=== PATIENT | female | born 1960 | race African-American/Black ===

== ENCOUNTER 2016-06-05 16:08 | Emergency (ER) | payer OTHER ==
[~2016-06-05] VITALS: Ht 165.1 cm; Wt 81.6 kg
[~2016-06-05 16:08] MED LIST: ACETAMINOPHEN120 MG GT; ASPIRIN81 MG GT; ATORVASTATIN CA20 MG GT; CARDIZEM30 M1 GT; CATAPRES0.1 MG GT; COLACE100 MG GT; MILK OF MA400 MG/51 GT; MULTI-DELYN237 ML GT; PREDNISONE20 MG GT; PROAIR HFA8.5 GM INH; PROMOD946 ML GT; TRAMADOL HCL50 MG GT; UTI-STAT L3875 MG/31 GT; VITAMIN C500 M1 GT; ZINC SULFATE220 M1 GT
[2016-06-05 16:49] VITALS: BP 143/76
[2016-06-05 18:03] VITALS: BP 134/90
--- NOTE | 2016-06-05 21:55 | Emergency Room Report ---
History of Present Illness General Chief Complaint: General Complaint Source: Patient Present Illness HPI 56 YOF sent from SNF for evaluation of "bump" on back right side of head. Atraumatic. Patient aphasic - on trach/vent, not speaking at baseline. Paperwork from [facility] does not specify any additional information. There are no family members present to provide additional information. Allergies: Coded Allergies: SULFA (SULFONAMIDE ANTIBIOTICS) (Verified Allergy, Intermediate, 02/07/16) Patient History Past Medical History: see triage record, old chart reviewed Past Surgical History: unable to obtain Pertinent Family History: unable to obtain Social History: Denies: alcohol use, drug use, smoking Now: No Immunizations: UTD Reviewed Nursing Documentation: PMH: Agreed, PSxH: Agreed Nursing Documentation-PMH Hx Cardiac Problems: Yes - HYPERLIPIDEMIA Hx Hypertension: Yes Hx COPD: Yes Hx Cancer: No Hx Gastrointestinal Problems: Yes - GERD Hx Neurological Problems: No Review of Systems All Other Systems: limited - Patient aphasic Physical Exam Vital Signs Date Time Temp Pulse Resp B/P Pulse Ox O2 Delivery O2 Flow Rate FiO2 06/05/16 16:08 98.8 97 22 104/68 99 Mechanical Ventilator 6.0 06/05/16 16:18 40 Sp02 EP Interpretation: reviewed, normal General Appearance: normal inspection, well appearing, no apparent distress, alert, GCS 15, non-toxic, obese Head: normocephalic, atraumatic Eyes: bilateral eye EOMI, bilateral eye PERRL ENT: normal ENT inspection, normal pharynx, no angioedema Neck: normal inspection, full range of motion, supple, no bony tend, other - Trach in place, no air leak. Respiratory: normal inspection, lungs clear, normal breath sounds, no respiratory distress, no retraction, no wheezing Cardiovascular #1: regular rate, rhythm, no edema Gastrointestinal: normal inspection, normal bowel sounds, non tender, soft, no guarding, no hernia Genitourinary: no CVA tenderness Musculoskeletal: normal inspection, back normal, normal range of motion, Ricardo' s Sign negative Neurologic: normal inspection, alert, responsive, rectifier operator III-XII nml as tested, speech normal Psychiatric: normal inspection, judgement/insight normal, mood/affect normal Skin: normal inspection, normal color, no rash Medical Decision Making Diagnostic Impression: Primary Impression: Hematoma ER Course CT with right parietal cephalohematoma Not clinically an abscess No surrounding cellulitis or other signs of infection No sign of trauma on CT DC back to SNF Dr Lynch informed Last Vital Signs Date Time Temp Pulse Resp B/P Pulse Ox O2 Delivery O2 Flow Rate FiO2 06/05/16 20:40 74 15 40 06/05/16 18:03 134/90 100 Mechanical Ventilator 06/05/16 16:08 98.8 6.0 Status: improved Disposition: XFER SNF Condition: Improved Patient Instructions: Hematoma, [id number] Additional Instructions: - Right sided parietal hematoma DELLA MEJÍA M.D. Jun 05, 2016 21:55
[2016-06-05 22:48] VITALS: BP 121/89
--- NOTE | 2016-06-27 10:36 | Diagnostic Imaging Report ---
Indications: Head trauma Technique: Spiral acquisitions obtained through the brain. Angled axial and coronal 5 x 5 mm slices were reconstructed. Total dose length product 1431 mGycm. CTDI vol(s) 70 mGy Comparison: None Findings: There is a large right high parietal scalp contusion. No underlying calvarial fracture. There is age-related enlargement of ventricles and extra-axial CSF spaces. There is periventricular deep white matter chronic ischemic change. There are old bilateral basal ganglia lacunar infarcts. There is ethmoid and sphenoid sinus disease. The mastoids are clear. The orbits are unremarkable. Impression: Chronic and age-related changes, as described, including old bilateral basal ganglia lacunar infarcts Negative for acute intracranial bleed or mass effect Right parietal scalp hematoma Sinus disease This agrees with the preliminary interpretation provided overnight by Dr. Verduzco The CT scanner at [facility] is accredited by the [employer] and the scans are performed using protocols designed to limit radiation exposure to as low as reasonably achievable to attain images of sufficient resolution adequate for diagnostic evaluation.
== END 2016-06-05 22:50 ==
LOC: EDBD 16:08 → EMR 16:50
DX: M79.81 Nontraumatic hematoma of soft tissue (principal); R47.01 Aphasia; Z93.0 Tracheostomy status; Z99.11 Dependence on respirator [ventilator] status; I10 Essential (primary) hypertension; J44.9 Chronic obstructive pulmonary disease, unspecified; E78.5 Hyperlipidemia, unspecified; K21.9 Gastro-esophageal reflux disease without esophagitis; Z88.2 Allergy status to sulfonamides
CPT/HCPCS: 70450; 94002; 94664; 99284

== ENCOUNTER 2016-07-13 10:08 | Inpatient (IN) | payer MEDICAID, OTHER ==
[2016-07-13] VITALS (35 sets, daily range): BP systolic 75–131; BP diastolic 46–86
[~2016-07-13] VITALS: Ht 167.6 cm; Wt 88.0 kg
[2016-07-13] MEDS ORDERED: ATORVASTATIN CA20 MG GT (10:26)
--- NOTE | 2016-07-13 10:26 | Emergency Room Report ---
History of Present Illness General Chief Complaint: Dyspnea/Respdistress Source: EMS Present Illness HPI Patient presents from nursing facility with complaints of hypoxia Was also report of tachycardia Upon arrival the patient is tracheostomy vent dependent patient is tachycardic and hypotensive Patient herself is nonverbal cannot provide any history This does limit the history of present illness significantly Unknown regarding fevers at the facility Unknown regarding diarrhea or vomiting Patient has feeding tube in place Allergies: Coded Allergies: SULFA (SULFONAMIDE ANTIBIOTICS) (Verified Allergy, Intermediate, 02/07/16) Patient History Limited by: medical condition Past Medical History: see triage record Pertinent Family History: unable to obtain Now: No Reviewed Nursing Documentation: PMH: Agreed, PSxH: Agreed Nursing Documentation-PMH Past Medical History: No History, Except For Hx Cardiac Problems: Yes - AR, RESP FAILURE, HYPERLIPIDEMIA Hx Hypertension: Yes Hx Cancer: No Hx Gastrointestinal Problems: Yes - GERD History Of Psychiatric Problem: Yes - ANXIETY DISORDER Hx Neurological Problems: No Review of Systems All Other Systems: limited - Other than the ones mentioned in the history of present illness all others are reviewed however they do stay limited due to the patient's mental status Physical Exam Vital Signs Date Time Temp Pulse Resp B/P Pulse Ox O2 Delivery O2 Flow Rate FiO2 07/13/16 10:04 140 45 107/66 91 Ambu-Bag 07/13/16 10:21 100 Sp02 EP Interpretation: reviewed, abnormal - Ported at 91% which is a low oxygenation, on the ventilator her on 100% oxygen patient saturating 100% pulse ox which is a normal percentage, General Appearance: mild distress - grimacing Head: normocephalic, atraumatic Eyes: bilateral eye PERRL ENT: normal pharynx, no angioedema Neck: other - Tracheostomy in place no crepitus Respiratory: crackles - diffusely Cardiovascular #1: tachycardia, edema Gastrointestinal: other - Somewhat of a distended abdomen, feeding tube in place Rectal: other - Large decubitus ulcer Musculoskeletal: other - Patient contracted in the extremities appears to be chronically debilitated, Neurologic: other - Responds to physical stimuli otherwise nonverbal not following commands Skin: other - multiple skin breakdowns Lymphatic: no adenopathy Procedures Critical Care Time Critical Care Time 50 minutes for multiple evaluations initial critical presentation including hypotension and tachycardia Findings of severe sepsis Multiple consultants not including any procedural time Medical Decision Making Diagnostic Impression: Primary Impression: Severe sepsis ER Course Patient presents in critical condition Hypotensive and tachycardic concern is high regarding severe sepsis Patient initiated on septic protocol with saline bolus and broad-spectrum antibiotic Imaging study reveals right lower lobe atelectasis possible consolidation Blood work is also significantly abnormal with elevated white blood for count high lactic acid also kidney disease with high potassium and significant electrolyte abnormalities Patient requires PICC line placement this is performed by radiology Patient has done better with appropriate decrease of heart rate with increased pressure Patient was given Kayexalate for the high potassium also be IV hydration will help with this given the kidney evaluations Patient requires icu admission in critical condition Labs Test 07/13/16 10:30 07/13/16 11:13 White Blood Count 20.2 K/UL (4.8-10.8) Red Blood Count 3.71 M/UL (4.20-5.40) Hemoglobin 9.5 G/DL (12.0-16.0) Hematocrit 30.6 % (37.0-47.0) Mean Corpuscular Volume 83 FL (80-99) Mean Corpuscular Hemoglobin 25.5 PG (27.0-31.0) Mean Corpuscular Hemoglobin Concent 30.9 G/DL (32.0-36.0) Red Cell Distribution Width 16.7 % (11.6-14.8) Platelet Count 498 K/UL (150-450) Mean Platelet Volume 6.2 FL (6.5-10.1) Neutrophils (%) (Auto) % (45.0-75.0) Lymphocytes (%) (Auto) % (20.0-45.0) Monocytes (%) (Auto) % (1.0-10.0) Eosinophils (%) (Auto) % (0.0-3.0) Basophils (%) (Auto) % (0.0-2.0) Differential Total Cells Counted 100 Neutrophils % (Manual) 81 % (45-75) Lymphocytes % (Manual) 1 % (20-45) Monocytes % (Manual) 1 % (1-10) Eosinophils % (Manual) 0 % (0-3) Basophils % (Manual) 0 % (0-2) Band Neutrophils 17 % (0-8) Platelet Estimate Adequate Platelet Morphology Normal Hypochromasia 2+ Anisocytosis 1+ Sodium Level 123 mEQ/L (135-145) Potassium Level 6.1 mEQ/L (3.4-4.9) Chloride Level 83 mEQ/L (98-107) Carbon Dioxide Level 19 mEQ/L (20-30) Anion Gap 21 (5-15) Blood Urea Nitrogen 34 mg/dL (7-23) Creatinine 0.4 mg/dL (0.5-0.9) Estimat Glomerular Filtration Rate > 60 mL/min (>60) Glucose Level 204 mg/dL (74-106) Lactic Acid Level 4.00 mmol/L (0.66-2.22) Calcium Level 8.3 mg/dL (8.6-10.2) Total Bilirubin 0.6 mg/dL (0.0-1.2) Aspartate Amino Transf (AST/SGOT) 45 U/L (5-40) Alanine Aminotransferase (ALT/SGPT) 57 U/L (3-33) Alkaline Phosphatase 196 U/L (35-104) Total Creatine Kinase 18 U/L (26-140) Creatine Kinase MB < 1.5 ng/mL (< 3.8) Creatine Kinase MB Relative Index Troponin I < 0.30 ng/mL (<=0.30) Pro-B-Type Natriuretic Peptide 1139 pg/mL (0-125) Total Protein 5.7 g/dL (6.6-8.7) Albumin 2.4 g/dL (3.5-5.2) Globulin 3.3 g/dL Albumin/Globulin Ratio 0.7 (1.0-2.7) Lipase 33 U/L (< 60) Urine Color Yellow Urine Appearance Clear Urine pH 6 (4.5-8.0) Urine Specific [place] 1.010 (1.005-1.035) Urine Protein 2+ (NEGATIVE) Urine Glucose (UA) Negative (NEGATIVE) Urine Ketones Negative (NEGATIVE) Urine Occult Blood 2+ (NEGATIVE) Urine Nitrite Negative (NEGATIVE) Urine Bilirubin Negative (NEGATIVE) Urine Urobilinogen Normal MG/DL (0.0-1.0) Urine Leukocyte Esterase 2+ (NEGATIVE) Urine RBC 5-10 /HPF (0 - 2) Urine WBC 5-10 /HPF (0 - 2) Urine Squamous Epithelial Cells Few /LPF (NONE/OCC) Urine Bacteria Few /HPF (NONE) EKG Diagnostic Results Rate: tachycardiac Rhythm: other ST Segments: other - Nonspecific ST and T-wave changes, straining pattern with tachycardia Rhythm Strip Diag. Results EP Interpretation: yes Rate: 119 Rhythm: no PVC's, no ectopy, other - Sinus tach Chest X-Ray Diagnostic Results EP Interpretation: Yes Findings: no pneumothorax, other - Increased markings right lower lobe, cardiomegaly, consideration for atelectasis/infiltrates Number of Views: 1 Last Vital Signs Date Time Temp Pulse Resp B/P Pulse Ox O2 Delivery O2 Flow Rate FiO2 07/13/16 10:21 155 16 Mechanical Ventilator 100 07/13/16 10:04 107/66 91 Status: improved Disposition: ADMITTED INPATIENT Condition: Critical OMAIRA MITCHELL D.O. Jul 13, 2016 10:26
[2016-07-13] MEDS ORDERED: Lidocaine 1% Plain 30 ml INJ ONE (10:30)
[2016-07-13] MEDS ORDERED: Heparin 2000 units/Ns 1000ml IV ONE (10:30)
[2016-07-13 11:07] LABS: MEAN CORPUSCULAR HEMOGLOBIN 25.5 PG (27.0-31.0); MEAN CORPUSCULAR HGB CONC 30.9 G/DL (32.0-36.0); MEAN CORPUSCULAR VOLUME 83 FL (80-99); MEAN PLATELET VOLUME 6.2 FL (6.5-10.1); PLATELET COUNT 498 K/UL (150-450); RED BLOOD COUNT 3.71 M/UL (4.20-5.40); RED CELL DISTRIBUTION WIDTH 16.7 % (11.6-14.8); WHITE BLOOD COUNT 20.2 K/UL (4.8-10.8)
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
[2016-07-13] MEDS ORDERED: Zosyn 3.375gm inj ONE (11:26)
[2016-07-13] MEDS ORDERED: Piperacillin/Tazobactam 3.375 GM in NS 110 ML IVPB ONE (11:30)
[2016-07-13 11:31] LABS: ANISOCYTOSIS 1+; BAND NEUTROPHILS % (MANUAL) 17 % (0-8); BASOPHILS % (MANUAL) 0 % (0-2); EOSINOPHILS % (MANUAL) 0 % (0-3); HYPOCHROMASIA 2+; LYMPHOCYTES % (MANUAL) 1 % (20-45); NEUTROPHILS % (MANUAL) 81 % (45-75); PLATELET ESTIMATE ADEQUATE; PLATELET MORPHOLOGY NORMAL; TOTAL CELLS COUNTED 100
[2016-07-13] MEDS ORDERED: Levophed 4mg/4mL Inj IV ONE (11:36)
[2016-07-13 11:38] LABS: TROPONIN I < 0.30 ng/mL (<=0.30)
[2016-07-13 11:41] LABS: ALANINE AMINOTRANSFERASE 57 U/L (3-33); ALBUMIN/GLOBULIN RATIO 0.7 (1.0-2.7); ANION GAP 21 (5-15); ASPARTATE AMINO TRANSFERASE 45 U/L (5-40); CALCIUM 8.3 mg/dL (8.6-10.2); CARBON DIOXIDE 19 mEQ/L (20-30); CHLORIDE 83 mEQ/L (98-107); CREATININE 0.4 mg/dL (0.5-0.9); GLOMERULAR FILTRATION RATE > 60 mL/min (>60); HEMOLYSIS 6; LIPASE 33 U/L (< 60); SODIUM 123 mEQ/L (135-145); TOTAL PROTEIN 5.7 g/dL (6.6-8.7)
[2016-07-13 11:42] LABS: POTASSIUM 6.1 mEQ/L (3.4-4.9)
[2016-07-13 11:49] LABS: APPEARANCE,URINE CLEAR; KETONES,URINE NEGATIVE (NEGATIVE); LEUKOCYTE ESTERASE ,URINE 2+ (NEGATIVE); NITRITE,URINE NEGATIVE (NEGATIVE); PH,URINE 6 (4.5-8.0); PROTEIN,URINE 2+ (NEGATIVE); UROBILINOGEN,URINE NORMAL MG/DL (0.0-1.0)
[2016-07-13 11:52] LABS: CKMB < 1.5 ng/mL (< 3.8)
[2016-07-13 12:17] LABS: REFLEX LACTIC ACID YES OR NO YES
[2016-07-13 12:19] LABS: BACTERIA,URINE FEW /HPF; SQUAMOUS EPITHELIAL CELL,UR FEW /LPF (NONE/OCC)
[2016-07-13] MEDS ORDERED: Sodium Polystyrene Sulfonate 15gm Powder ORAL ONE (12:45)
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
[2016-07-13] MEDS ORDERED: Albuterol 90mcg Inhaler 8gm INH SCH (15:00)
[2016-07-13] MEDS ORDERED: traMADol 50mg tab GT PRN (15:30)
[2016-07-13] MEDS ORDERED: Vancomycin 1 GM in NS 275 ML IVPB ONE (16:30)
--- NOTE | 2016-07-13 16:43 | Diagnostic Imaging Report ---
Indications: Needs long-term IV access Technique: Procedure performed at bedside. Ultrasound confirms patent compressible left basilic vein. Total sterile technique, including sterile probe cover and sterile gel, sterile gloves, hand hygiene, hat, mask,, sterile gown, large sterile drape, and preparation with 2% chlorhexidine utilized. Local anesthesia with 1% lidocaine. Under real-time ultrasound guidance, puncture basilic vein using 21-gauge needle, passage 0.018 guidewire, exchange for 5 Austrian peel-away sheath. 5 Austrian Bard dual-lumen power PICC cut to 44 cm. It was inserted through the peel-away sheath. Peel-away sheath and guidewire removed. Catheter fixed to the skin. Both catheter ports aspirated and flushed. Patient tolerated procedure well, without immediate complication. Followup chest x-ray obtained, documents catheter tip position at the the right atrium. Impression: Successful bedside placement of left arm PICC under sonographic guidance, as described above. Note that the catheter tip is deep in the right atrium and will be retracted
[2016-07-13] MEDS: Albuterol ud Inhalation HHN SCH ×2 (18:52→23:00)
[2016-07-13] MEDS ORDERED: Heparin 5000 units/ml inj SUBQ SCH (21:00)
[2016-07-13 21:02] LABS: ANION GAP 17 (5-15); CALCIUM 7.8 mg/dL (8.6-10.2); CARBON DIOXIDE 21 mEQ/L (20-30); CHLORIDE 91 mEQ/L (98-107); CREATININE 0.3 mg/dL (0.5-0.9); GLOMERULAR FILTRATION RATE > 60 mL/min (>60); HEMOLYSIS 0; POTASSIUM 3.7 mEQ/L (3.4-4.9); SODIUM 129 mEQ/L (135-145)
[2016-07-13 21:11] LABS: ABG ALLEN TEST POSITIVE; ABG PCO2 29.5 mmHg (35.0-45.0)
[2016-07-13] MEDS: Piperacillin/Tazobactam 3.375 GM in D5W 110 ML IVPB SCH (21:55)
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
[2016-07-14] VITALS (25 sets, daily range): BP systolic 99–139; BP diastolic 46–86
[2016-07-14] MEDS: Albuterol ud Inhalation HHN SCH ×6 (03:00→23:00)
[2016-07-14] MEDS: Vancomycin 750 MG in NS 275 ML IVPB SCH ×2 (03:33→16:29)
[2016-07-14 05:53] LABS: MEAN CORPUSCULAR HEMOGLOBIN 26.3 PG (27.0-31.0); MEAN CORPUSCULAR HGB CONC 31.8 G/DL (32.0-36.0); MEAN CORPUSCULAR VOLUME 83 FL (80-99); PLATELET COUNT 336 K/UL (150-450); WHITE BLOOD COUNT 20.6 K/UL (4.8-10.8)
[2016-07-14] MEDS: Piperacillin/Tazobactam 3.375 GM in D5W 110 ML IVPB SCH ×3 (06:00→21:12)
[2016-07-14 06:24] LABS: ALANINE AMINOTRANSFERASE 45 U/L (3-33); ALBUMIN/GLOBULIN RATIO 0.5 (1.0-2.7); ANION GAP 19 (5-15); ASPARTATE AMINO TRANSFERASE 33 U/L (5-40); CALCIUM 7.8 mg/dL (8.6-10.2); CARBON DIOXIDE 22 mEQ/L (20-30); CHLORIDE 97 mEQ/L (98-107); CREATININE 0.3 mg/dL (0.5-0.9); GLOMERULAR FILTRATION RATE > 60 mL/min (>60); HEMOLYSIS 1; POTASSIUM 3.1 mEQ/L (3.4-4.9); SODIUM 138 mEQ/L (135-145); TOTAL PROTEIN 5.1 g/dL (6.6-8.7)
[2016-07-14] MEDS ORDERED: KCl 10% 40mEq/30ml liquid NG ONE (08:00)
[2016-07-14] MEDS: Ascorbic Acid 500mg tab GT SCH (08:50)
[2016-07-14] MEDS: Zinc Sulfate 220mg cap GT SCH (08:50)
[2016-07-14] MEDS: Pantoprazole Inj IVP SCH (08:50)
[2016-07-14] MEDS: Aspirin Baby 81mg GT SCH (08:51)
[2016-07-14] MEDS: Milk of Magnesia 30ml Ud GT SCH (08:51)
[2016-07-14] MEDS ORDERED: PredniSONE 20mg tab GT SCH (09:00)
[2016-07-14 09:25] LABS: BAND NEUTROPHILS % (MANUAL) 11 % (0-8); BASOPHILS % (MANUAL) 0 % (0-2); EOSINOPHILS % (MANUAL) 0 % (0-3); LYMPHOCYTES % (MANUAL) 3 % (20-45); NEUTROPHILS % (MANUAL) 85 % (45-75); PLATELET ESTIMATE ADEQUATE; TOTAL CELLS COUNTED 100
[2016-07-14 09:26] LABS: ANISOCYTOSIS 1+; HYPOCHROMASIA 1+; PLATELET MORPHOLOGY NORMAL
--- NOTE | 2016-07-14 11:08 | Diagnostic Imaging Report ---
Indications: PICC repositioning Technique: Portable AP chest at 1634 Findings: Comparison: 1149 PICC has been withdrawn, tip now in the region of the proximal aspect of the right atrium. Pulmonary inflation remains poor. Left retrocardiac consolidation with air bronchograms, hazy opacity in the/over right lung base with indistinctness of costophrenic angle suggesting pleural effusion, bilateral interstitial prominence all unchanged. Tracheostomy tube remains in place. No new abnormality identified. IMPRESSION: Better positioning of PICC following withdrawal, may be used. No other change from 5 hours prior This correlates with Dr. Verduzco's preliminary report.
--- NOTE | 2016-07-14 11:25 | Diagnostic Imaging Report ---
Indications: DYSPNEA Technique: Portable AP chest Findings: Comparison: 07/13/16 Pulmonary bibasal consolidative opacities with adjacent pleural effusions, increased interstitial markings throughout the nonconsolidated portions of both lungs persist, unchanged. Lines and tubes remain in place. No new abnormality identified. IMPRESSION: Stable bilateral congestive changes Underlying atelectasis or pneumonia in either or both lung bases not excludable, unchanged
--- NOTE | 2016-07-14 11:28 | Diagnostic Imaging Report ---
Indications: Right hand trauma, pain Technique: 3 views right hand Findings: Comparison: 02/07/2016 There is been interval fracture through the neck of the first proximal phalanx with some adjacent periosteal callus formation. Only a few small calcific/ossific densities are present in the fracture cleft, in the expected region of the distal fracture fragment, latter not identified. Dislocation of the first interphalangeal joint persists. Multiple metacarpal phalangeal and interphalangeal joint subluxations with periarticular demineralization again noted. IMPRESSION: Nonacute fracture through the first proximal phalangeal neck with some evidence of healing as well as resorption of the distal fracture fragment Persistent joint subluxations and dislocations as described suggesting underlying inflammatory arthritis such as rheumatoid.
--- NOTE | 2016-07-14 11:38 | History and Physical Report ---
DATE OF ADMISSION: 07/13/2016 REASON FOR ADMISSION: Tachycardia and sepsis. HISTORY OF PRESENT ILLNESS: The patient is a 56-year-old unfortunate female with multiple medical problems. The patient is chronically ill and poorly responsive, ventilator dependent, and bedbound. The patient was noted to be tachycardic and hypotensive. The patient was brought in to the emergency room and treated accordingly with IV hydration and IV antibiotics. PAST MEDICAL HISTORY: Notable for respiratory failure, chronic encephalopathy, GERD, tracheostomy, G-tube, history of osteomyelitis, and history of significant arthritis. MEDICATIONS: Reviewed. ALLERGIES: Reviewed. REVIEW OF SYSTEMS: Unable to obtain. PHYSICAL EXAMINATION: GENERAL: The patient is ill appearing female, chronically ill, older than her stated age. Vital Signs: Blood pressure 126/57, respiratory rate 28, pulse 120, and saturation 95%. The patient is currently on the ventilator HEENT: Tracheostomy is in midline. NECK: Supple. LUNGS: Coarse breath sounds. CARDIAC: S1 and S2. Tachycardic. RR ABDOMEN: Soft. G-tube. EXTREMITIES: Significant contractures overall. LABORATORY AND DIAGNOSTIC DATA: Lab data reviewed. X-rays, KUB, noted. Chest x-ray with some fluid and possible infiltrate. White cell count 20, hemoglobin 10.1, and platelets 236,000. Blood gases, pH 7.5, pCO2 29, and pO2 156. Chemistry, BUN 22 and creatinine 0.3. Albumin 1.8. IMPRESSION: 1. Sepsis. 2. Respiratory failure. 3. Tracheostomy. 4. Metabolic acidosis. 5. Severe protein-calorie malnutrition. 6. Evidence of hypoxemia. 7. Leukocytosis. 8. Anemia of unclear etiology. RECOMMENDATIONS: IV antibiotics. ID evaluation. IV hydration. Levophed as needed for blood pressure support. Transfuse two units of blood today. Heart rate control and monitor. would recommend diltiazem although clinically she is hypotensive. We will discontinue subcutaneous heparin for now with low HH and monitor blood count and taper prednisone and update with family. Bartolome Lynch M.D. DR: Nir JOB#: [id number] CC: BUCKY
[2016-07-15] VITALS (24 sets, daily range): BP systolic 102–135; BP diastolic 54–77
--- NOTE | 2016-07-15 00:49 | Consultation ---
DATE OF CONSULTATION: 07/14/2016 CHIEF COMPLAINT: Anemia. HISTORY OF PRESENT ILLNESS: Most of the history is per chart. The patient is a 56-year-old female intubated with a history of chronic respiratory failure, on a vent and PEG, who was transferred to the hospital because of tachycardia and hypotension. She was found to be profoundly anemic, so GI consult was requested for evaluation. PAST MEDICAL HISTORY: 1. Respiratory failure, chronically on vent. 2. Dysphagia with gastrostomy tube. 3. GERD. 4. History of osteomyelitis. 5. Arthritis. ALLERGIES: Sulfa. MEDICATIONS: Please see medication reconciliation list. SOCIAL HISTORY: Currently lives in a long-term. No recent history of tobacco, alcohol, or IV drug abuse. PAST SURGICAL HISTORY: Tracheostomy. FAMILY HISTORY: Noncontributory. REVIEW OF SYSTEMS: Unable to obtain. PHYSICAL EXAMINATION: GENERAL: This is a well-developed female, on a vent . VITAL SIGNS: Most recent vital signs, the patient is afebrile. Blood pressure is 109/46, pulse is 135, and respirations 26. HEENT: Normocephalic. Eyes, pale conjunctivae. NECK: Supple. There is tracheostomy in place. CARDIOVASCULAR: Tachy. Regular rate. Plus S1 and S2. LUNGS: Decreased somewhat and diffusely. ABDOMEN: Soft and nontender. G-tube in place. No rebound. No guarding. EXTREMITIES: No cyanosis. No clubbing. No edema. LABORATORY DATA: White count on admission was 20, hemoglobin 9.5, but today, it dropped to 7.1, and platelet count is 336,000. Sodium 138, potassium 3.1, BUN 22, and creatinine 0.3. ASSESSMENT AND PLAN: A 56-year-old female with respiratory failure and dysphagia, admitted to the hospital with tachycardia and hypotension. The patient has a drop in hemoglobin and hematocrit without any obvious bleeding. Per nurses, there was no melena or hematochezia. Plan to send the stool for occult blood. Start the patient on Protonix. Monitor hemoglobin and hematocrit, transfuse, and gastrointestinal procedures if needed. I want to thank Dr. Bartolome Lynch for this kind referral. Sim Lr M.D. DR: KAILASH JOB#: [id number] CC: Bartolome Lynch M.D.; Fax#: [phone]
[2016-07-15] MEDS: Albuterol ud Inhalation HHN SCH ×6 (02:55→23:00)
[2016-07-15] MEDS: Vancomycin 750 MG in NS 275 ML IVPB SCH ×2 (03:30→15:45)
[2016-07-15 05:30] LABS: MEAN CORPUSCULAR HEMOGLOBIN 27.4 PG (27.0-31.0); MEAN CORPUSCULAR HGB CONC 32.2 G/DL (32.0-36.0); MEAN CORPUSCULAR VOLUME 85 FL (80-99); MEAN PLATELET VOLUME 7.1 FL (6.5-10.1); PLATELET COUNT 311 K/UL (150-450); RED BLOOD COUNT 3.64 M/UL (4.20-5.40); RED CELL DISTRIBUTION WIDTH 15.8 % (11.6-14.8); WHITE BLOOD COUNT 16.1 K/UL (4.8-10.8)
[2016-07-15 05:43] LABS: ANION GAP 15 (5-15); CALCIUM 7.4 mg/dL (8.6-10.2); CARBON DIOXIDE 24 mEQ/L (20-30); CHLORIDE 103 mEQ/L (98-107); CREATININE 0.3 mg/dL (0.5-0.9); GLOMERULAR FILTRATION RATE > 60 mL/min (>60); HEMOLYSIS 4; SODIUM 142 mEQ/L (135-145)
[2016-07-15 05:44] LABS: HEMOLYSIS 2; IRON 12 ug/dL (37-145); TOTAL IRON BINDING CAPACITY 93 ug/dL (250-400)
[2016-07-15 05:50] LABS: POTASSIUM 2.6 mEQ/L (3.4-4.9)
[2016-07-15] MEDS: Piperacillin/Tazobactam 3.375 GM in D5W 110 ML IVPB SCH ×3 (06:20→22:29)
[2016-07-15] MEDS: KCl 10% 40mEq/30ml liquid NG ONE ×2 (06:30→06:58)
[2016-07-15] MEDS ORDERED: Potassium Chloride 60 MEQ in NS 1000ml 1,000 ML IV ONE (09:00)
[2016-07-15 09:43] LABS: BAND NEUTROPHILS % (MANUAL) 12 % (0-8); LYMPHOCYTES % (MANUAL) 3 % (20-45); NEUTROPHILS % (MANUAL) 84 % (45-75); TOTAL CELLS COUNTED 100
[2016-07-15 09:44] LABS: ANISOCYTOSIS 1+; BASOPHILS % (MANUAL) 0 % (0-2); EOSINOPHILS % (MANUAL) 0 % (0-3); HYPOCHROMASIA 1+; PLATELET ESTIMATE ADEQUATE; PLATELET MORPHOLOGY NORMAL
[2016-07-15] MEDS: Milk of Magnesia 30ml Ud GT SCH (10:17)
[2016-07-15] MEDS: Pantoprazole Inj IVP SCH (10:17)
[2016-07-15] MEDS: Zinc Sulfate 220mg cap GT SCH (10:17)
[2016-07-15] MEDS: Ascorbic Acid 500mg tab GT SCH (10:17)
[2016-07-15] MEDS: Aspirin Baby 81mg GT SCH (10:17)
[2016-07-15] MEDS ORDERED: KCl 10% 40mEq/30ml liquid NG ONE ×2 (10:30→14:30)
[2016-07-15] MEDS ORDERED: NS 275ml ONE (13:57)
--- NOTE | 2016-07-15 17:59 | Consultation ---
DATE OF CONSULTATION: 07/15/2016 This consult is for coverage of Dr. Sequeira. CONSULTING PHYSICIAN: Puneet Fermin M.D. REFERRING PHYSICIAN: Bartolome Lynch M.D. PATIENT'S PRIMARY DOCTOR: Bartolome Lynch M.D. REASON FOR CONSULTATION: Sepsis. HISTORY OF PRESENT ILLNESS: This is a 56-year-old -[place] female who is a custodial resident, admitted on 07/13/2016 with tachycardia, hypoxemia, and leukocytosis. Apparently, she is not the source of history. The patient had no significant fever, but at the of admission, the temperature was low at 95.8. PAST MEDICAL HISTORY: Significant for ventilator-dependent renal failure, hypertension, coronary artery disease, encephalopathy, and has pressure ulcers at the time of admission. ALLERGIES: Allergic to sulfa drugs. MEDICATIONS: Potassium chloride, Protonix, vitamin C, aspirin, magnesium hydroxide, zinc, vancomycin, Zosyn, atorvastatin, albuterol, diltiazem, norepinephrine, tramadol, sodium chloride, and vancomycin. REVIEW OF SYSTEMS: Unobtainable from this patient. She was anemic and received blood transfusion. She also has a PICC line that was placed after admission. SOCIAL HISTORY: A custodial resident. Bedbound. PHYSICAL EXAMINATION: VITAL SIGNS: Temperature is 98.2, pulse is 118, and blood pressure 133/56. GENERAL APPEARANCE: In the ICU, nonresponsive. HEAD AND NECK: Status post tracheostomy. [place] conjunctivae. HEART: Tachycardic. LUNGS: The patient is on mechanical ventilator. She has bilateral rhonchi. ABDOMEN: Soft. Status post G-tube. EXTREMITIES: Left arm PICC line. She has edema in arms, more on the right side. SKIN: The patient has multiple pressure ulcers including in the sacrococcyx area stage IV, unstageable; bilateral hip ulcer stage III; and left posterior leg blister that was open. LABORATORY DATA: WBC today 16.1, coming down from 20.2; hemoglobin 10; hematocrit 31; and platelets is 311,000. Sodium 142, potassium 2.6, chloride 103, bicarbonate 24, BUN 17, creatinine 0.3, and glucose is 214. Chest x-ray shows congestion and atelectasis, cannot rule out pneumonia. Blood cultures x2 gram positive cocci in clusters of Staphylococcus aureus. IMPRESSION: 1. Staphylococcus aureus sepsis, source is not clear to me now. 2. The patient has ventilator-dependent respiratory failure. 3. Multiple pressure ulcers. 4. She has a history of osteomyelitis according to primary doctor. RECOMMENDATION: We will continue with vancomycin and Zosyn. We will obtain an echocardiogram to rule out infected endocarditis. We will follow up the cultures and repeat blood cultures. At the end of my exam, I thank Dr. Lynch for involving me in the care of this patient. Puneet Fermin M.D. DR: DARRIN JOB#: [id number] CC:
--- NOTE | 2016-07-15 20:36 | General Progress Note ---
Assessment/Plan Assessment/Plan IMPRESSION: 1. Sepsis. 2. Respiratory failure. 3. Tracheostomy. 4. Metabolic acidosis. 5. Severe protein-calorie malnutrition. 6. Evidence of hypoxemia. 7. Leukocytosis. 8. Anemia of unclear etiology. 9. reduced K PLAN care noted IV antibiotics replace K GI follow up feeds when safe monitor for change ICU care Subjective ROS Limited/Unobtainable: Yes Allergies: Coded Allergies: SULFA (SULFONAMIDE ANTIBIOTICS) (Verified Allergy, Intermediate, 02/07/16) Subjective remains ill Objective Last 24 Hour Vital Signs Date Time Temp Pulse Resp B/P Pulse Ox O2 Delivery O2 Flow Rate FiO2 07/15/16 20:00 50 07/15/16 20:00 98.5 127 23 125/71 100 Endotracheal Tube 50 07/15/16 19:37 122 07/15/16 19:37 122 Mechanical Ventilator 07/15/16 19:00 129 26 116/65 100 Endotracheal Tube 50 07/15/16 18:59 120 24 50 07/15/16 18:04 113 147/59 07/15/16 18:00 115 22 109/56 100 Endotracheal Tube 50 07/15/16 17:27 121 26 50 07/15/16 17:00 126 25 116/59 99 Endotracheal Tube 50 07/15/16 16:00 97.5 113 24 111/57 100 Endotracheal Tube 50 07/15/16 16:00 107 07/15/16 16:00 50 07/15/16 15:39 121 Mechanical Ventilator 07/15/16 15:39 121 07/15/16 15:29 122 30 50 07/15/16 15:28 118/55 07/15/16 15:00 115 28 118/55 100 Endotracheal Tube 50 07/15/16 14:00 111 23 102/54 100 Endotracheal Tube 50 07/15/16 13:00 110 22 135/55 100 Endotracheal Tube 50 07/15/16 12:55 124 16 50 07/15/16 12:00 97.6 102 24 119/54 100 Endotracheal Tube 50 07/15/16 12:00 50 07/15/16 12:00 114 07/15/16 11:50 110 121/59 07/15/16 11:01 120 07/15/16 11:01 120 Mechanical Ventilator 07/15/16 11:00 111 22 121/59 100 Endotracheal Tube 50 07/15/16 10:58 120 23 50 4/23/17 10:18 50 07/15/16 10:00 114 16 125/65 100 Endotracheal Tube 50 07/15/16 09:00 113 23 112/57 100 Endotracheal Tube 50 07/15/16 08:56 109 26 50 07/15/16 08:00 98 07/15/16 08:00 97.5 104 22 135/58 100 Endotracheal Tube 50 07/15/16 07:15 118 Mechanical Ventilator 07/15/16 07:14 118 07/15/16 07:11 96 23 50 07/15/16 07:00 109 22 133/56 100 Endotracheal Tube 50 07/15/16 06:19 106 133/56 07/15/16 06:00 104 22 133/56 100 Endotracheal Tube 50 07/15/16 05:00 100 22 130/57 100 Endotracheal Tube 50 07/15/16 04:47 107 18 50 07/15/16 04:00 106 07/15/16 04:00 50 07/15/16 04:00 98.2 104 22 122/75 100 Endotracheal Tube 50 07/15/16 03:02 118 Mechanical Ventilator 07/15/16 03:00 100 22 113/57 100 Endotracheal Tube 50 07/15/16 03:00 118 Mechanical Ventilator 07/15/16 02:54 112 23 50 07/15/16 02:00 115 22 109/55 100 Endotracheal Tube 50 07/15/16 01:00 106 22 131/56 100 Endotracheal Tube 50 07/15/16 00:00 50 07/15/16 00:00 98.6 111 22 118/77 100 Endotracheal Tube 50 07/15/16 00:00 109 119/59 07/15/16 00:00 111 07/14/16 23:00 122 Mechanical Ventilator 07/14/16 23:00 118 22 119/59 100 Endotracheal Tube 50 07/14/16 23:00 120 Mechanical Ventilator 07/14/16 22:58 118 22 50 07/14/16 22:00 120 22 120/65 100 Endotracheal Tube 50 07/14/16 21:00 117 21 111/63 100 Endotracheal Tube 50 07/14/16 20:47 117 23 50 Intake and Output 07/14/16 07/15/16 19:00 07:00 Intake Total 2757.5 ml 2405.000 ml Output Total 950 ml 590 ml Balance 1807.5 ml 1815.000 ml Free Water 100 ml 150 ml IV Total 1567.5 ml 1760.000 ml Tube Feeding 540 ml 495 ml Blood Product 500 ml Other 50 ml Output Urine Total 950 ml 590 ml # Bowel Movements 2 1 Laboratory Tests 07/15/16 03:30: White Blood Count 16.1H, Red Blood Count 3.64L, Hemoglobin 10.0#L, Hematocrit 31.0#L, Mean Corpuscular Volume 85, Mean Corpuscular Hemoglobin 27.4, Mean Corpuscular Hemoglobin Concent 32.2, Red Cell Distribution Width 15.8H, Platelet Count 311, Mean Platelet Volume 7.1, Neutrophils (%) (Auto) , Lymphocytes (%) (Auto) , Monocytes (%) (Auto) , Eosinophils (%) (Auto) , Basophils (%) (Auto) , Differential Total Cells Counted 100, Neutrophils % ( Manual) 84H, Lymphocytes % (Manual) 3L, Monocytes % (Manual) 1, Eosinophils % ( Manual) 0, Basophils % (Manual) 0, Band Neutrophils 12H, Platelet Estimate Adequate, Platelet Morphology Normal, Hypochromasia 1+, Anisocytosis 1+, Sodium Level 142, Potassium Level 2.6*L, Chloride Level 103, Carbon Dioxide Level 24, Anion Gap 15, Blood Urea Nitrogen 17, Creatinine 0.3L, Estimat Glomerular Filtration Rate > 60, Glucose Level 214H, Calcium Level 7.4L, Iron Level 12L, Total Iron Binding Capacity 93L, Percent Iron Saturation 13L, Unsaturated Iron Binding 81L, Carcinoembryonic Antigen 2.3, Vitamin B12 Level > 2000H, Folate [ Pending] 07/15/16 05:20: Stool Occult Blood Positive Height (Feet): 5 Height (Inches): 6.00 Weight (Pounds): 195 Objective GENERAL: The patient is ill appearing female, chronically ill, older than her stated age. HEENT: Tracheostomy is in midline. NECK: Supple. LUNGS: Coarse breath sounds. symmetric CARDIAC: S1 and S2. Tachycardia minimal ABDOMEN: Soft. G-tube. EXTREMITIES: Significant contractures overall. MARIO ARIAS Jul 15, 2016 20:36
[2016-07-15] MEDS: Iron Sucrose 100 MG in NS 55 ML IVPB SCH (20:57)
[2016-07-16] VITALS (24 sets, daily range): BP systolic 104–159; BP diastolic 52–86
[2016-07-16] MEDS: Albuterol ud Inhalation HHN SCH ×6 (02:53→22:50)
[2016-07-16] MEDS: Vancomycin 750 MG in NS 275 ML IVPB SCH ×2 (03:35→16:44)
[2016-07-16 05:50] LABS: MEAN CORPUSCULAR HGB CONC 32.7 G/DL (32.0-36.0); MEAN CORPUSCULAR VOLUME 86 FL (80-99); MEAN PLATELET VOLUME 6.3 FL (6.5-10.1); PLATELET COUNT 266 K/UL (150-450); RED BLOOD COUNT 2.95 M/UL (4.20-5.40); RED CELL DISTRIBUTION WIDTH 16.3 % (11.6-14.8)
[2016-07-16] MEDS: Piperacillin/Tazobactam 3.375 GM in D5W 110 ML IVPB SCH ×3 (05:56→21:42)
[2016-07-16 06:42] LABS: ANION GAP 15 (5-15); CALCIUM 7.3 mg/dL (8.6-10.2); CARBON DIOXIDE 24 mEQ/L (20-30); CHLORIDE 106 mEQ/L (98-107); CREATININE 0.2 mg/dL (0.5-0.9); GLOMERULAR FILTRATION RATE > 60 mL/min (>60); HEMOLYSIS 0; POTASSIUM 2.9 mEQ/L (3.4-4.9); SODIUM 145 mEQ/L (135-145)
--- NOTE | 2016-07-16 07:31 | General Progress Note ---
Assessment/Plan Assessment/Plan IMPRESSION: 1. Sepsis. 2. Respiratory failure. 3. Tracheostomy. 4. Metabolic acidosis. 5. Severe protein-calorie malnutrition. 6. Evidence of hypoxemia. 7. Leukocytosis. 8. Anemia of unclear etiology. 9. reduced K PLAN care noted IV antibiotics replace K- additional needed GI follow up feeds when safe monitor for change ?reduce IV fluids ID follow up ICU care Subjective Allergies: Coded Allergies: SULFA (SULFONAMIDE ANTIBIOTICS) (Verified Allergy, Intermediate, 02/07/16) Subjective remains ill poor LOC overall Objective Last 24 Hour Vital Signs Date Time Temp Pulse Resp B/P Pulse Ox O2 Delivery O2 Flow Rate FiO2 07/16/16 07:05 98 17 100 Mechanical Ventilator 50 07/16/16 07:00 97 22 129/59 100 Endotracheal Tube 50 07/16/16 07:00 50 07/16/16 07:00 102 22 100 Mechanical Ventilator 50 07/16/16 07:00 102 22 50 07/16/16 06:00 106 23 128/55 100 Endotracheal Tube 50 07/16/16 05:56 102 133/54 07/16/16 05:07 115 28 50 07/16/16 05:00 81 23 133/54 91 Endotracheal Tube 50 07/16/16 04:00 98.2 102 20 114/55 100 Endotracheal Tube 50 07/16/16 04:00 50 07/16/16 04:00 102 07/16/16 03:31 115 Mechanical Ventilator 07/16/16 03:30 115 07/16/16 03:00 105 18 113/56 100 Endotracheal Tube 50 07/16/16 02:44 110 18 50 07/16/16 02:00 110 22 114/63 100 Endotracheal Tube 50 07/16/16 01:13 117 23 50 07/16/16 01:00 117 20 125/58 100 Endotracheal Tube 50 07/16/16 00:00 114 07/16/16 00:00 99.4 113 23 111/54 100 Endotracheal Tube 50 07/16/16 00:00 50 07/15/16 23:49 122 118/58 07/15/16 23:00 123 29 118/58 100 Endotracheal Tube 50 07/15/16 22:50 122 29 50 07/15/16 22:50 122 Mechanical Ventilator 07/15/16 22:50 122 07/15/16 22:00 113 26 114/58 100 Endotracheal Tube 50 07/15/16 21:12 124 25 50 07/15/16 21:00 123 27 120/61 100 Endotracheal Tube 50 07/15/16 20:00 127 07/15/16 20:00 50 07/15/16 20:00 98.5 127 23 125/71 100 Endotracheal Tube 50 07/15/16 19:37 122 07/15/16 19:37 122 Mechanical Ventilator 07/15/16 19:00 129 26 116/65 100 Endotracheal Tube 50 07/15/16 18:59 120 24 50 07/15/16 18:04 113 147/59 07/15/16 18:00 115 22 109/56 100 Endotracheal Tube 50 07/15/16 17:27 121 26 50 07/15/16 17:00 126 25 116/59 99 Endotracheal Tube 50 07/15/16 16:00 97.5 113 24 111/57 100 Endotracheal Tube 50 07/15/16 16:00 107 07/15/16 16:00 50 07/15/16 15:39 121 Mechanical Ventilator 07/15/16 15:39 121 07/15/16 15:29 122 30 50 07/15/16 15:28 118/55 07/15/16 15:00 115 28 118/55 100 Endotracheal Tube 50 07/15/16 14:00 111 23 102/54 100 Endotracheal Tube 50 07/15/16 13:00 110 22 135/55 100 Endotracheal Tube 50 07/15/16 12:55 124 16 50 07/15/16 12:00 97.6 102 24 119/54 100 Endotracheal Tube 50 07/15/16 12:00 50 07/15/16 12:00 114 07/15/16 11:50 110 121/59 07/15/16 11:01 120 07/15/16 11:01 120 Mechanical Ventilator 07/15/16 11:00 111 22 121/59 100 Endotracheal Tube 50 07/15/16 10:58 120 23 50 07/15/16 10:18 50 07/15/16 10:00 114 16 125/65 100 Endotracheal Tube 50 07/15/16 09:00 113 23 112/57 100 Endotracheal Tube 50 07/15/16 08:56 109 26 50 07/15/16 08:00 98 07/15/16 08:00 97.5 104 22 135/58 100 Endotracheal Tube 50 Intake and Output 07/15/16 07/16/16 19:00 07:00 Intake Total 3185.000 ml 2481.20 ml Output Total 1045 ml 635 ml Balance 2140.000 ml 1846.20 ml Free Water 100 ml IV Total 2545.000 ml 1941.20 ml Tube Feeding 540 ml 540 ml Output Urine Total 1045 ml 635 ml Laboratory Tests 07/16/16 04:42: White Blood Count 16.0H, Red Blood Count 2.95L, Hemoglobin 8.3L, Hematocrit 25.4L, Mean Corpuscular Volume 86, Mean Corpuscular Hemoglobin 28.0, Mean Corpuscular Hemoglobin Concent 32.7, Red Cell Distribution Width 16.3H, Platelet Count 266, Mean Platelet Volume 6.3L, Neutrophils (%) (Auto) , Lymphocytes (%) (Auto) , Monocytes (%) (Auto) , Eosinophils (%) (Auto) , Basophils (%) (Auto) , Neutrophils % (Manual) [Pending], Lymphocytes % (Manual) [Pending], Platelet Estimate [Pending], Platelet Morphology [Pending] 07/16/16 06:10: Sodium Level 145, Potassium Level 2.9L, Chloride Level 106, Carbon Dioxide Level 24, Anion Gap 15, Blood Urea Nitrogen 14, Creatinine 0.2L, Estimat Glomerular Filtration Rate > 60, Glucose Level 145H, Calcium Level 7.3L Height (Feet): 5 Height (Inches): 6.00 Weight (Pounds): 195 Objective GENERAL: The patient is ill appearing female, chronically ill, older than her stated age. HEENT: Tracheostomy is in midline. NECK: Supple. LUNGS: Coarse breath sounds. symmetric CARDIAC: S1 and S2. Tachycardia improved ABDOMEN: Soft. G-tube. EXTREMITIES: Significant contractures overall. MARIO ARIAS Jul 16, 2016 07:31
[2016-07-16] MEDS: Pantoprazole Inj IVP SCH (08:22)
[2016-07-16] MEDS: Zinc Sulfate 220mg cap GT SCH (08:22)
[2016-07-16] MEDS: Ascorbic Acid 500mg tab GT SCH (08:22)
[2016-07-16] MEDS: Milk of Magnesia 30ml Ud GT SCH (08:22)
[2016-07-16] MEDS: Aspirin Baby 81mg GT SCH (08:22)
[2016-07-16] MEDS ORDERED: NS 275ml ONE ×2 (08:39→09:51)
[2016-07-16] MEDS ORDERED: Tubing IV Secondary IV ONE (08:39)
[2016-07-16] MEDS ORDERED: Sterile Water Irrig 1000ml IRRIG ONE (08:39)
[2016-07-16 08:55] LABS: ANISOCYTOSIS 1+; BAND NEUTROPHILS % (MANUAL) 14 % (0-8); BASOPHILS % (MANUAL) 0 % (0-2); EOSINOPHILS % (MANUAL) 1 % (0-3); HYPOCHROMASIA 1+; LYMPHOCYTES % (MANUAL) 2 % (20-45); NEUTROPHILS % (MANUAL) 83 % (45-75); PLATELET ESTIMATE ADEQUATE; PLATELET MORPHOLOGY NORMAL; TOTAL CELLS COUNTED 100
[2016-07-16] MEDS ORDERED: Tubing Blood Filter IV ONE (09:51)
--- NOTE | 2016-07-16 10:16 | Infectious Diseases Prog Note ---
Assessment/Plan Assessment/Plan A: MRSA sepsis Infected pressure ulcer ? pneumonia VDRF Encephalopathy P; repeat blood culture, sputum culture Continue Zosyn & Vancomycin Subjective ROS Limited/Unobtainable: Yes Allergies: Coded Allergies: SULFA (SULFONAMIDE ANTIBIOTICS) (Verified Allergy, Intermediate, 02/07/16) Objective Vital Signs Last 24 Hour Vital Signs Date Time Temp Pulse Resp B/P Pulse Ox O2 Delivery O2 Flow Rate FiO2 07/16/16 10:00 89 19 134/58 100 Endotracheal Tube 50 07/16/16 09:20 95 20 50 07/16/16 09:00 91 25 127/52 100 Endotracheal Tube 50 07/16/16 08:00 50 07/16/16 08:00 96 07/16/16 08:00 97.9 90 24 133/53 100 Endotracheal Tube 50 07/16/16 07:05 98 17 100 Mechanical Ventilator 50 07/16/16 07:00 97 22 129/59 100 Endotracheal Tube 50 07/16/16 07:00 50 07/16/16 07:00 102 22 100 Mechanical Ventilator 50 07/16/16 07:00 102 22 50 07/16/16 06:00 106 23 128/55 100 Endotracheal Tube 50 07/16/16 05:56 102 133/54 07/16/16 05:07 115 28 50 07/16/16 05:00 81 23 133/54 91 Endotracheal Tube 50 07/16/16 04:00 98.2 102 20 114/55 100 Endotracheal Tube 50 07/16/16 04:00 50 07/16/16 04:00 102 07/16/16 03:31 115 Mechanical Ventilator 07/16/16 03:30 115 07/16/16 03:00 105 18 113/56 100 Endotracheal Tube 50 07/16/16 02:44 110 18 50 07/16/16 02:00 110 22 114/63 100 Endotracheal Tube 50 07/16/16 01:13 117 23 50 07/16/16 01:00 117 20 125/58 100 Endotracheal Tube 50 07/16/16 00:00 114 07/16/16 00:00 99.4 113 23 111/54 100 Endotracheal Tube 50 07/16/16 00:00 50 07/15/16 23:49 122 118/58 07/15/16 23:00 123 29 118/58 100 Endotracheal Tube 50 07/15/16 22:50 122 29 50 07/15/16 22:50 122 Mechanical Ventilator 07/15/16 22:50 122 07/15/16 22:00 113 26 114/58 100 Endotracheal Tube 50 07/15/16 21:12 124 25 50 07/15/16 21:00 123 27 120/61 100 Endotracheal Tube 50 07/15/16 20:00 127 07/15/16 20:00 50 07/15/16 20:00 98.5 127 23 125/71 100 Endotracheal Tube 50 07/15/16 19:37 122 07/15/16 19:37 122 Mechanical Ventilator 07/15/16 19:00 129 26 116/65 100 Endotracheal Tube 50 07/15/16 18:59 120 24 50 07/15/16 18:04 113 147/59 07/15/16 18:00 115 22 109/56 100 Endotracheal Tube 50 07/15/16 17:27 121 26 50 07/15/16 17:00 126 25 116/59 99 Endotracheal Tube 50 07/15/16 16:00 97.5 113 24 111/57 100 Endotracheal Tube 50 07/15/16 16:00 107 07/15/16 16:00 50 07/15/16 15:39 121 Mechanical Ventilator 07/15/16 15:39 121 07/15/16 15:29 122 30 50 07/15/16 15:28 118/55 07/15/16 15:00 115 28 118/55 100 Endotracheal Tube 50 07/15/16 14:00 111 23 102/54 100 Endotracheal Tube 50 07/15/16 13:00 110 22 135/55 100 Endotracheal Tube 50 07/15/16 12:55 124 16 50 07/15/16 12:00 97.6 102 24 119/54 100 Endotracheal Tube 50 07/15/16 12:00 50 07/15/16 12:00 114 07/15/16 11:50 110 121/59 07/15/16 11:01 120 07/15/16 11:01 120 Mechanical Ventilator 07/15/16 11:00 111 22 121/59 100 Endotracheal Tube 50 07/15/16 10:58 120 23 50 07/15/16 10:18 50 Height (Feet): 5 Height (Inches): 6.00 Weight (Pounds): 195 HEENT: status post trach Respiratory/Chest: other - on ventilator Cardiovascular: normal rate Abdomen: soft, non tender, other - GT in placce Extremities: other - left arm PICC line,l edema of R arm Microbiology Date/Time Source Procedure Growth Status 07/13/16 10:45 Blood Blood Culture - Final Staphylococcus Aureus - Mrsa Complete 07/13/16 10:30 Blood Blood Culture - Final Staphylococcus Aureus - Mrsa Complete 07/13/16 15:00 Wound Gram Stain - Final Resulted 07/13/16 15:00 Wound Culture - Preliminary Staphylococcus Aureus - Mrsa Resulted 07/13/16 12:21 Nasal Nares MRSA Culture - Final NO METHICILLIN RESISTANT STAPH AUREUS... Complete 07/13/16 12:21 Rectum VRE Culture - Final Enterococcus Faecalis - Vre Complete Laboratory Tests Test 07/16/16 04:42 07/16/16 06:10 White Blood Count 16.0 K/UL (4.8-10.8) H Red Blood Count 2.95 M/UL (4.20-5.40) L Hemoglobin 8.3 G/DL (12.0-16.0) L Hematocrit 25.4 % (37.0-47.0) L Mean Corpuscular Volume 86 FL (80-99) Mean Corpuscular Hemoglobin 28.0 PG (27.0-31.0) Mean Corpuscular Hemoglobin Concent 32.7 G/DL (32.0-36.0) Red Cell Distribution Width 16.3 % (11.6-14.8) H Platelet Count 266 K/UL (150-450) Mean Platelet Volume 6.3 FL (6.5-10.1) L Neutrophils (%) (Auto) % (45.0-75.0) Lymphocytes (%) (Auto) % (20.0-45.0) Monocytes (%) (Auto) % (1.0-10.0) Eosinophils (%) (Auto) % (0.0-3.0) Basophils (%) (Auto) % (0.0-2.0) Differential Total Cells Counted 100 Neutrophils % (Manual) 83 % (45-75) H Lymphocytes % (Manual) 2 % (20-45) L Monocytes % (Manual) 0 % (1-10) L Eosinophils % (Manual) 1 % (0-3) Basophils % (Manual) 0 % (0-2) Band Neutrophils 14 % (0-8) H Platelet Estimate Adequate Platelet Morphology Normal Hypochromasia 1+ Anisocytosis 1+ Sodium Level 145 mEQ/L (135-145) Potassium Level 2.9 mEQ/L (3.4-4.9) L Chloride Level 106 mEQ/L (98-107) Carbon Dioxide Level 24 mEQ/L (20-30) Anion Gap 15 (5-15) Blood Urea Nitrogen 14 mg/dL (7-23) Creatinine 0.2 mg/dL (0.5-0.9) L Estimat Glomerular Filtration Rate > 60 mL/min (>60) Glucose Level 145 mg/dL (74-106) H Calcium Level 7.3 mg/dL (8.6-10.2) L Current Medications Medications (Trade) Dose Ordered Sig/Daljit Route PRN Reason Start Time Stop Time Status Last Admin Dose Admin Albuterol Sulfate 2.5 mg 2.5 mg Q4HRT HHN 07/13/16 19:00 07/18/16 18:59 07/16/16 07:19 Ascorbic Acid (Vitamin C) 500 mg DAILY GT 07/14/16 09:00 08/13/16 08:59 07/16/16 08:22 Aspirin (ASA) 81 mg DAILY GT 07/14/16 09:00 08/13/16 08:59 07/16/16 08:22 Atorvastatin Calcium (Lipitor) 10 mg BEDTIME GT 07/13/16 21:00 08/12/16 20:59 07/15/16 20:57 Diltiazem HCl (Cardizem) 60 mg Q6HR GT 07/13/16 18:00 08/12/16 17:59 07/16/16 05:56 Iron Sucrose/ Sodium Chloride (Venofer/Sodium Chloride) 60 ml @ 240 mls/hr BEDTIME IVPB 07/15/16 21:00 07/19/16 21:14 07/15/16 20:57 Magnesium Hydroxide (Mom) 30 ml DAILY GT 07/14/16 09:00 08/13/16 08:59 07/16/16 08:22 Norepinephrine Bitartrate/ Dextrose (Levophed/D5W) 250 ml @ 0 mls/hr Q24H IV 07/13/16 15:30 08/12/16 15:29 07/13/16 16:14 Pantoprazole (Protonix) 40 mg DAILY IVP 07/14/16 09:00 08/13/16 08:59 07/16/16 08:22 Piperacillin Sod/ Tazobactam Sod/ Dextrose (Zosyn/D5W) 110 ml @ 27.5 mls/hr EVERY 8 HOURS IVPB 07/13/16 22:00 07/18/16 21:59 07/16/16 05:56 Sodium Chloride 1,000 ml @ 125 mls/hr Q8H IV 07/13/16 15:00 08/12/16 14:59 07/16/16 06:56 Tramadol HCl (Ultram) 50 mg Q6H PRN GT For Pain 07/13/16 15:30 07/20/16 15:29 Vancomycin HCl 1 ea 1 ea DAILY PRN MISC Per rx protocol 07/13/16 14:15 08/12/16 14:14 Vancomycin HCl/ Sodium Chloride (Vancomycin/ Sodium Chloride) 275 ml @ 183.708 mls/hr Q12H IVPB 07/14/16 04:00 07/19/16 03:59 07/16/16 03:35 Zinc Sulfate 220 mg 220 mg DAILY GT 07/14/16 09:00 08/13/16 08:59 07/16/16 08:22 KAIDEN MOHAN Jul 16, 2016 10:16
--- NOTE | 2016-07-16 12:13 | Pre-Procedure Note/Attestation ---
Pre-Procedure Note/Attestation Complete Prior to Procedure Planned Procedure: not applicable Procedure Narrative: egd Indications for Procedure Pre-Operative Diagnosis: gib Attestation I attest that I discussed the nature of the procedure; its benefits; risks and complications; and alternatives (and the risks and benefits of such alternatives ), prior to the procedure, with the patient (or the patient's legal construction sales representative). I attest that, if there was a reasonable possibility of needing a blood transfusion, the patient (or the patient's legal construction sales representative) was given the [facility] standardized written summary, pursuant to the [place] Blood Safety Act ([place] Health and Safety Code # 1645, as amended). I attest that I re-evaluated the patient just prior to the surgery and that there has been no change in the patient's H&P, except as documented below: ADI SHAH Jul 16, 2016 12:13
--- NOTE | 2016-07-16 12:14 | Anethesia Preoperative Eval ---
Anesthesia Pre-op PMH/ROS General Date of Evaluation: Jul 16, 2016 Time of Evaluation: 12:05 Anesthesiologist: Jose ASA Score: ASA 4 Mallampati Score Class I : Soft palate, uvula, fauces, pillars visible Class II: Soft palate, uvula, fauces visible Class III: Soft palate, base of uvula visible Class IV: Only hard plate visible Mallampati Classification: Class III Surgeon: Adeline Diagnosis: Anemia Surgical Procedure: EGD Allergies: Coded Allergies: SULFA (SULFONAMIDE ANTIBIOTICS) (Verified Allergy, Intermediate, 02/07/16) Medications: see eMAR Past Medical History Cardiovascular: Reports: HTN Pulmonary: Reports: COPD Neurologic/Psychiatric: Reports: dementia PMH Narrative: sepsis, COPD, HTN, Pna Anesthesia Pre-op Phys. Exam Physician Exam Last Vital Signs Date Time Temp Pulse Resp B/P Pulse Ox O2 Delivery O2 Flow Rate FiO2 07/16/16 11:11 118 Mechanical Ventilator 50 07/16/16 11:10 22 100 07/16/16 11:00 116/70 07/16/16 08:00 97.9 Constitutional: other - Patient unable to communicate Neurologic: other - Vent dependent Cardiovascular: RRR, no M/R/G Respiratory: CTA Gastrointestinal: S/NT/ND Airway Exam Mallampati Score: Class III Anesthesia Pre-op A/P Labs Hematology Test 07/16/16 04:42 White Blood Count 16.0 K/UL (4.8-10.8) H Red Blood Count 2.95 M/UL (4.20-5.40) L Hemoglobin 8.3 G/DL (12.0-16.0) L Hematocrit 25.4 % (37.0-47.0) L Mean Corpuscular Volume 86 FL (80-99) Mean Corpuscular Hemoglobin 28.0 PG (27.0-31.0) Mean Corpuscular Hemoglobin Concent 32.7 G/DL (32.0-36.0) Red Cell Distribution Width 16.3 % (11.6-14.8) H Platelet Count 266 K/UL (150-450) Mean Platelet Volume 6.3 FL (6.5-10.1) L Neutrophils (%) (Auto) % (45.0-75.0) Lymphocytes (%) (Auto) % (20.0-45.0) Monocytes (%) (Auto) % (1.0-10.0) Eosinophils (%) (Auto) % (0.0-3.0) Basophils (%) (Auto) % (0.0-2.0) Differential Total Cells Counted 100 Neutrophils % (Manual) 83 % (45-75) H Lymphocytes % (Manual) 2 % (20-45) L Monocytes % (Manual) 0 % (1-10) L Eosinophils % (Manual) 1 % (0-3) Basophils % (Manual) 0 % (0-2) Band Neutrophils 14 % (0-8) H Platelet Estimate Adequate Platelet Morphology Normal Hypochromasia 1+ Anisocytosis 1+ Chemistry Test 07/16/16 06:10 Sodium Level 145 mEQ/L (135-145) Potassium Level 2.9 mEQ/L (3.4-4.9) L Chloride Level 106 mEQ/L (98-107) Carbon Dioxide Level 24 mEQ/L (20-30) Anion Gap 15 (5-15) Blood Urea Nitrogen 14 mg/dL (7-23) Creatinine 0.2 mg/dL (0.5-0.9) L Estimat Glomerular Filtration Rate > 60 mL/min (>60) Glucose Level 145 mg/dL (74-106) H Calcium Level 7.3 mg/dL (8.6-10.2) L Studies Pre-op Studies: EKG - Sinus tach, echo - EF 70-75% Risk Assessment & Plan Assessment: Anemia, vent dependent, severe sepsis, COPD Plan: GA, TIVA Status Change Before Surgery: No Pre-Antibiotics Drug: None LORENA CASTILLO M.D. Jul 16, 2016 12:14
--- NOTE | 2016-07-16 12:34 | Endoscopy Procedure Note ---
Endoscopy Procedure Note Indication for Procedure: gib Procedures Performed: EGD Operative Findings/Diagnosis: gastritis Specimen: yes Pt Tolerated Procedure Well: Yes Estimated Blood Loss: none Anesthesiologist: dinesh Anesthesia: MAC Implant(s) used?: No 50 yrs or older w/o bx or poly: Not Applicable 10yrs. F/U not recommended: Not Applicable ADI SHAH Jul 16, 2016 12:34
--- NOTE | 2016-07-16 14:27 | Immediate Post-Op Evaluation ---
Immediate Post-Op Evalulation Immediate Post-Op Evalulation Procedure: EGD Date of Evaluation: Jul 16, 2016 Time of Evaluation: 12:45 IV Fluids: 125 Blood Pressure Systolic: 124 Blood Pressure Diastolic: 75 Pulse Rate: 97 O2 Sat by Pulse Oximetry: 100 Pain Score (1-10): 0 Nausea: No Vomiting: No Complications No complication Patient Status: reacts, ventilated, none Hydration Status: adequate Drug: None LORENA CASTILLO M.D. Jul 16, 2016 14:27
--- NOTE | 2016-07-16 19:38 | Procedure Note ---
DATE OF PROCEDURE: 07/16/2016 SURGEON: Sim Lr M.D. PROCEDURE: Upper endoscopy with biopsy. ANESTHESIOLOGIST: Brandon Garcia M.D. INSTRUMENT: Olympus adult flexible upper endoscope. INDICATION: Upper GI bleeding. REASON FOR PROCEDURE: The procedure, risks, benefits, and possible consequences, including hemorrhage, aspiration, perforation and infection, and alternative treatments, were explained to the patient/legal guardian by Dr. Sim Lr and the patient/legal guardian understood and accepted these risks. DESCRIPTION OF PROCEDURE: After informed consent was obtained and the patient was adequately sedated, Olympus upper endoscope was advanced from mouth into the second portion of the duodenum and retroflexion was performed in the stomach. The patient had evidence of diffuse [id number] gastritis, especially in the lower body of the stomach and along the greater curvature. Biopsy from this area was obtained. There is no obvious deep ulceration and no active bleeding at this time. The patient tolerated the procedure without any complication. SUMMARY OF FINDINGS: Severe gastritis in the distal body and on the greater curvature status post biopsy. RECOMMENDATIONS: 1. Follow up biopsy results and treat accordingly. 2. We will start tube feeding. 3. Monitor hemoglobin and hematocrit and transfuse as needed. Sim Lr M.D. DR: GENARO JOB#: [id number] CC:
[2016-07-16] MEDS: Iron Sucrose 100 MG in NS 55 ML IVPB SCH (20:49)
--- NOTE | 2016-07-16 22:21 | General Progress Note ---
Assessment/Plan Assessment/Plan Assessment - Gastritis - Anemia - Resp failure / trach - dysphagia / GT Recommendations - Resume TF - monitor CBC - F/u GI biopsy results - abx Subjective Allergies: Coded Allergies: SULFA (SULFONAMIDE ANTIBIOTICS) (Verified Allergy, Intermediate, 02/07/16) Subjective Seen earlier today in ICU s/p EGD --> severe gastritis non communicative patient Objective Last 24 Hour Vital Signs Date Time Temp Pulse Resp B/P Pulse Ox O2 Delivery O2 Flow Rate FiO2 07/16/16 22:00 112 23 159/64 100 Endotracheal Tube 50 07/16/16 21:12 107 22 50 07/16/16 21:00 105 22 157/65 100 Endotracheal Tube 50 07/16/16 20:00 110 07/16/16 20:00 50 07/16/16 20:00 98.5 117 26 146/86 100 Endotracheal Tube 50 07/16/16 19:29 111 23 100 Mechanical Ventilator 50 07/16/16 19:21 109 23 100 Mechanical Ventilator 50 07/16/16 19:21 50 07/16/16 19:20 109 23 50 07/16/16 19:00 108 21 129/62 100 Endotracheal Tube 50 07/16/16 18:00 113 22 133/81 100 Endotracheal Tube 50 07/16/16 17:49 115 137/124 07/16/16 17:12 116 18 50 07/16/16 17:00 118 17 137/84 100 Endotracheal Tube 50 07/16/16 16:00 50 07/16/16 16:00 98.1 103 18 141/67 100 Endotracheal Tube 50 07/16/16 16:00 102 07/16/16 15:25 102 22 100 Mechanical Ventilator 50 07/16/16 15:25 50 07/16/16 15:25 103 23 50 07/16/16 15:25 102 22 100 Mechanical Ventilator 50 07/16/16 15:00 106 17 140/71 100 Endotracheal Tube 50 07/16/16 14:27 97 100 07/16/16 14:00 98 25 132/72 100 Endotracheal Tube 50 07/16/16 13:15 91 26 50 07/16/16 13:00 85 22 123/74 100 Endotracheal Tube 50 07/16/16 12:59 99 122/84 07/16/16 12:00 50 07/16/16 12:00 98.0 91 22 104/57 100 Endotracheal Tube 50 07/16/16 12:00 87 07/16/16 11:11 118 Mechanical Ventilator 50 07/16/16 11:10 118 22 100 Mechanical Ventilator 50 07/16/16 11:09 117 22 50 07/16/16 11:00 103 19 116/70 100 Endotracheal Tube 50 07/16/16 10:00 89 19 134/58 100 Endotracheal Tube 50 07/16/16 09:20 95 20 50 07/16/16 09:00 91 25 127/52 100 Endotracheal Tube 50 07/16/16 08:00 50 07/16/16 08:00 96 07/16/16 08:00 97.9 90 24 133/53 100 Endotracheal Tube 50 07/16/16 07:05 98 17 100 Mechanical Ventilator 50 07/16/16 07:00 97 22 129/59 100 Endotracheal Tube 50 07/16/16 07:00 50 07/16/16 07:00 102 22 100 Mechanical Ventilator 50 07/16/16 07:00 102 22 50 07/16/16 06:00 106 23 128/55 100 Endotracheal Tube 50 07/16/16 05:56 102 133/54 07/16/16 05:07 115 28 50 07/16/16 05:00 81 23 133/54 91 Endotracheal Tube 50 07/16/16 04:00 98.2 102 20 114/55 100 Endotracheal Tube 50 07/16/16 04:00 50 07/16/16 04:00 102 07/16/16 03:31 115 Mechanical Ventilator 07/16/16 03:30 115 07/16/16 03:00 105 18 113/56 100 Endotracheal Tube 50 07/16/16 02:44 110 18 50 07/16/16 02:00 110 22 114/63 100 Endotracheal Tube 50 07/16/16 01:13 117 23 50 07/16/16 01:00 117 20 125/58 100 Endotracheal Tube 50 07/16/16 00:00 114 07/16/16 00:00 99.4 113 23 111/54 100 Endotracheal Tube 50 07/16/16 00:00 50 07/15/16 23:49 122 118/58 07/15/16 23:00 123 29 118/58 100 Endotracheal Tube 50 07/15/16 22:50 122 29 50 07/15/16 22:50 122 Mechanical Ventilator 07/15/16 22:50 122 Intake and Output 07/15/16 07/16/16 19:00 07:00 Intake Total 3185.000 ml 2581.20 ml Output Total 1045 ml 635 ml Balance 2140.000 ml 1946.20 ml Free Water 100 ml IV Total 2545.000 ml 1941.20 ml Tube Feeding 540 ml 540 ml Other 100 ml Output Urine Total 1045 ml 635 ml Laboratory Tests 07/16/16 04:42: White Blood Count 16.0H, Red Blood Count 2.95L, Hemoglobin 8.3L, Hematocrit 25.4L, Mean Corpuscular Volume 86, Mean Corpuscular Hemoglobin 28.0, Mean Corpuscular Hemoglobin Concent 32.7, Red Cell Distribution Width 16.3H, Platelet Count 266, Mean Platelet Volume 6.3L, Neutrophils (%) (Auto) , Lymphocytes (%) (Auto) , Monocytes (%) (Auto) , Eosinophils (%) (Auto) , Basophils (%) (Auto) , Differential Total Cells Counted 100, Neutrophils % ( Manual) 83H, Lymphocytes % (Manual) 2L, Monocytes % (Manual) 0L, Eosinophils % ( Manual) 1, Basophils % (Manual) 0, Band Neutrophils 14H, Platelet Estimate Adequate, Platelet Morphology Normal, Hypochromasia 1+, Anisocytosis 1+ 07/16/16 06:10: Sodium Level 145, Potassium Level 2.9L, Chloride Level 106, Carbon Dioxide Level 24, Anion Gap 15, Blood Urea Nitrogen 14, Creatinine 0.2L, Estimat Glomerular Filtration Rate > 60, Glucose Level 145H, Calcium Level 7.3L 07/16/16 15:10: Vancomycin Level Trough 13.6H Height (Feet): 5 Height (Inches): 6.00 Weight (Pounds): 195 Objective debilitated AA woman in ICU NCAT (+) trach CTA RRR obese soft abd, (+) GT OBS LISA BALL Jul 16, 2016 22:21
[2016-07-17] VITALS (20 sets, daily range): BP systolic 116–159; BP diastolic 52–88
[2016-07-17] MEDS: Albuterol ud Inhalation HHN SCH ×5 (03:07→23:02)
[2016-07-17 05:09] LABS: MEAN CORPUSCULAR HEMOGLOBIN 27.6 PG (27.0-31.0); MEAN CORPUSCULAR HGB CONC 31.9 G/DL (32.0-36.0); MEAN CORPUSCULAR VOLUME 86 FL (80-99); MEAN PLATELET VOLUME 6.7 FL (6.5-10.1); PLATELET COUNT 292 K/UL (150-450); RED BLOOD COUNT 3.42 M/UL (4.20-5.40); RED CELL DISTRIBUTION WIDTH 16.6 % (11.6-14.8); WHITE BLOOD COUNT 15.7 K/UL (4.8-10.8)
[2016-07-17 05:38] LABS: CALCIUM 7.2 mg/dL (8.6-10.2); CARBON DIOXIDE 23 mEQ/L (20-30); CHLORIDE 108 mEQ/L (98-107); CREATININE < 0.2 mg/dL (0.5-0.9); GLOMERULAR FILTRATION RATE > 60 mL/min (>60); HEMOLYSIS 1; SODIUM 144 mEQ/L (135-145)
[2016-07-17 05:43] LABS: ANION GAP 13 (5-15)
[2016-07-17 06:03] LABS: POTASSIUM 2.4 mEQ/L (3.4-4.9)
[2016-07-17] MEDS ORDERED: Vancomycin 1gm inj IVPB ONE (06:05)
[2016-07-17] MEDS: Vancomycin 1gm/D5W 275ml IVPB SCH ×4 (06:15→15:30)
[2016-07-17] MEDS: Piperacillin/Tazobactam 3.375 GM in D5W 110 ML IVPB SCH ×3 (06:25→21:45)
[2016-07-17 08:25] LABS: ANISOCYTOSIS 1+; BAND NEUTROPHILS % (MANUAL) 2 % (0-8); BASOPHILS % (MANUAL) 0 % (0-2); EOSINOPHILS % (MANUAL) 0 % (0-3); HYPOCHROMASIA 2+; LYMPHOCYTES % (MANUAL) 3 % (20-45); NEUTROPHILS % (MANUAL) 92 % (45-75); PLATELET ESTIMATE ADEQUATE; PLATELET MORPHOLOGY NORMAL; TOTAL CELLS COUNTED 100
--- NOTE | 2016-07-17 08:34 | General Progress Note ---
Assessment/Plan Assessment/Plan IMPRESSION: 1. Sepsis. 2. Respiratory failure. 3. Tracheostomy. 4. Metabolic acidosis. 5. Severe protein-calorie malnutrition. 6. Evidence of hypoxemia. 7. Leukocytosis. 8. Anemia of unclear etiology. 9. reduced K 10. MRSA bacteremia PLAN care noted IV antibiotics replace K- additional needed today GI follow up; on feeds monitor for change ?reduce IV fluids- reassess in am ID follow up ICU care Subjective ROS Limited/Unobtainable: Yes Allergies: Coded Allergies: SULFA (SULFONAMIDE ANTIBIOTICS) (Verified Allergy, Intermediate, 02/07/16) Subjective remains ill poor LOC overall Objective Last 24 Hour Vital Signs Date Time Temp Pulse Resp B/P Pulse Ox O2 Delivery O2 Flow Rate FiO2 07/17/16 07:28 107 18 100 Mechanical Ventilator 50 07/17/16 07:27 105 16 50 07/17/16 07:18 50 07/17/16 07:18 106 16 100 Mechanical Ventilator 50 07/17/16 07:00 101 26 116/52 97 Endotracheal Tube 50 07/17/16 06:15 106 129/72 07/17/16 06:00 108 23 129/72 100 Endotracheal Tube 50 07/17/16 05:00 93 21 130/62 100 Endotracheal Tube 50 07/17/16 04:55 93 19 50 07/17/16 04:00 98.9 95 20 131/73 100 Endotracheal Tube 50 07/17/16 04:00 50 07/17/16 04:00 95 07/17/16 03:14 93 16 100 Mechanical Ventilator 50 07/17/16 03:06 96 20 100 Mechanical Ventilator 50 07/17/16 03:06 50 07/17/16 03:05 96 20 50 07/17/16 03:00 102 20 132/62 100 Endotracheal Tube 50 07/17/16 02:00 102 18 140/76 100 Endotracheal Tube 50 07/17/16 01:20 101 20 50 07/17/16 01:00 101 22 131/59 100 Endotracheal Tube 50 07/17/16 00:00 111 25 140/64 100 Endotracheal Tube 50 07/17/16 00:00 50 07/17/16 00:00 111 07/16/16 23:46 114 147/63 07/16/16 23:00 114 24 147/63 100 Endotracheal Tube 50 07/16/16 22:58 115 17 100 Mechanical Ventilator 50 07/16/16 22:50 106 21 100 Mechanical Ventilator 50 07/16/16 22:50 50 07/16/16 22:49 106 21 50 07/16/16 22:00 112 23 159/64 100 Endotracheal Tube 50 07/16/16 21:12 107 22 50 07/16/16 21:00 105 22 157/65 100 Endotracheal Tube 50 07/16/16 20:00 110 07/16/16 20:00 50 07/16/16 20:00 98.5 117 26 146/86 100 Endotracheal Tube 50 07/16/16 19:29 111 23 100 Mechanical Ventilator 50 07/16/16 19:21 109 23 100 Mechanical Ventilator 50 07/16/16 19:21 50 07/16/16 19:20 109 23 50 07/16/16 19:00 108 21 129/62 100 Endotracheal Tube 50 07/16/16 18:00 113 22 133/81 100 Endotracheal Tube 50 07/16/16 17:49 115 137/124 07/16/16 17:12 116 18 50 07/16/16 17:00 118 17 137/84 100 Endotracheal Tube 50 07/16/16 16:00 50 07/16/16 16:00 98.1 103 18 141/67 100 Endotracheal Tube 50 07/16/16 16:00 102 07/16/16 15:25 102 22 100 Mechanical Ventilator 50 07/16/16 15:25 50 07/16/16 15:25 103 23 50 07/16/16 15:25 102 22 100 Mechanical Ventilator 50 07/16/16 15:00 106 17 140/71 100 Endotracheal Tube 50 07/16/16 14:27 97 100 07/16/16 14:00 98 25 132/72 100 Endotracheal Tube 50 07/16/16 13:15 91 26 50 07/16/16 13:00 85 22 123/74 100 Endotracheal Tube 50 07/16/16 12:59 99 122/84 07/16/16 12:00 50 07/16/16 12:00 98.0 91 22 104/57 100 Endotracheal Tube 50 07/16/16 12:00 87 07/16/16 11:11 118 Mechanical Ventilator 50 07/16/16 11:10 118 22 100 Mechanical Ventilator 50 07/16/16 11:09 117 22 50 07/16/16 11:00 103 19 116/70 100 Endotracheal Tube 50 07/16/16 10:00 89 19 134/58 100 Endotracheal Tube 50 07/16/16 09:20 95 20 50 07/16/16 09:00 91 25 127/52 100 Endotracheal Tube 50 Intake and Output 07/16/16 07/17/16 19:00 07:00 Intake Total 2332.5 ml 1937.45 ml Output Total 1280 ml 1220 ml Balance 1052.5 ml 717.45 ml IV Total 1902.5 ml 1607.45 ml Tube Feeding 360 ml 300 ml Other 70 ml 30 ml Output Urine Total 1280 ml 1220 ml # Bowel Movements 2 3 Laboratory Tests 07/16/16 15:10: Vancomycin Level Trough 13.6H 07/17/16 04:10: White Blood Count 15.7H, Red Blood Count 3.42L, Hemoglobin 9.4L, Hematocrit 29.5L, Mean Corpuscular Volume 86, Mean Corpuscular Hemoglobin 27.6, Mean Corpuscular Hemoglobin Concent 31.9L, Red Cell Distribution Width 16.6H, Platelet Count 292, Mean Platelet Volume 6.7, Neutrophils (%) (Auto) , Lymphocytes (%) (Auto) , Monocytes (%) (Auto) , Eosinophils (%) (Auto) , Basophils (%) (Auto) , Differential Total Cells Counted 100, Neutrophils % ( Manual) 92H, Lymphocytes % (Manual) 3L, Monocytes % (Manual) 3, Eosinophils % ( Manual) 0, Basophils % (Manual) 0, Band Neutrophils 2, Platelet Estimate Adequate, Platelet Morphology Normal, Hypochromasia 2+, Anisocytosis 1+, Sodium Level 144, Potassium Level 2.4*L, Chloride Level 108H, Carbon Dioxide Level 23, Anion Gap 13, Blood Urea Nitrogen 10, Creatinine < 0.2L, Estimat Glomerular Filtration Rate > 60, Glucose Level 137H, Calcium Level 7.2L Height (Feet): 5 Height (Inches): 6.00 Weight (Pounds): 195 Objective GENERAL: The patient is ill appearing female, chronically ill, older than her stated age. HEENT: Tracheostomy is in midline. NECK: Supple. LUNGS: Coarse breath sounds. symmetric CARDIAC: S1 and S2. Tachycardia improved ABDOMEN: Soft. G-tube. EXTREMITIES: Significant contractures overall. MARIO ARIAS Jul 17, 2016 08:34
[2016-07-17] MEDS: Milk of Magnesia 30ml Ud GT SCH (09:27)
[2016-07-17] MEDS: Pantoprazole Inj IVP SCH (09:28)
[2016-07-17] MEDS: Ascorbic Acid 500mg tab GT SCH (09:28)
[2016-07-17] MEDS: Zinc Sulfate 220mg cap GT SCH (09:28)
[2016-07-17] MEDS: Aspirin Baby 81mg GT SCH (09:28)
[2016-07-17] MEDS ORDERED: KCl 10% 40mEq/30ml liquid NG ONE ×2 (09:30→14:30)
[2016-07-17] MEDS ORDERED: Tubing IV Secondary IV ONE (10:55)
[2016-07-17] MEDS ORDERED: NS 275ml ONE ×2 (10:55→12:00)
[2016-07-17] MEDS ORDERED: Propofol 10mg/ml 20ml IV ONE (12:00)
--- NOTE | 2016-07-17 14:15 | Diagnostic Imaging Report ---
Indications: Abdominal distention Technique: Portable supine AP abdomen Findings: Comparison: 07/13/16 There are has been interval mild gaseous distention of a segment of colon in the midline lower abdomen. Remainder of bowel gas pattern remains unremarkable. Rectal feces unchanged. Percutaneous gastrostomy tube remains in place. PICC remains in place, tip in region of right atrium. Left retrocardiac opacification appears more prominent. IMPRESSION: Focal increased gaseous distention of colon, nonspecific, likely nonobstructive No other evidence of acute abdominopelvic disease, unchanged Increasing atelectasis versus pneumonia lung base Other stable chronic changes as described
[2016-07-17] MEDS ORDERED: Metoclopramide 10mg/2ml Inj IVP SCH (15:00)
--- NOTE | 2016-07-17 19:23 | General Progress Note ---
Assessment/Plan Assessment/Plan Assessment - Gastritis - Anemia - Resp failure / trach - dysphagia / GT - TF intolerance Recommendations - Continue TF - Reglan trial - monitor CBC - F/u GI biopsy results - abx Subjective Allergies: Coded Allergies: SULFA (SULFONAMIDE ANTIBIOTICS) (Verified Allergy, Intermediate, 02/07/16) Subjective Seen earlier today RN reports some TF intolerance non communicative patient (+) BM Objective Last 24 Hour Vital Signs Date Time Temp Pulse Resp B/P Pulse Ox O2 Delivery O2 Flow Rate FiO2 07/17/16 18:01 126 136/57 07/17/16 18:00 123 23 135/71 100 Endotracheal Tube 50 07/17/16 17:00 126 21 136/57 100 Endotracheal Tube 50 07/17/16 16:30 133 22 50 07/17/16 16:00 122 07/17/16 16:00 50 07/17/16 16:00 99.0 121 22 146/62 99 Endotracheal Tube 50 07/17/16 15:30 117/59 07/17/16 15:00 119 23 117/59 100 Endotracheal Tube 50 07/17/16 14:38 119 16 100 Mechanical Ventilator 50 07/17/16 14:37 114 16 50 07/17/16 14:30 50 07/17/16 14:30 114 16 100 Mechanical Ventilator 50 07/17/16 14:00 119 21 121/61 100 Endotracheal Tube 50 07/17/16 13:00 98.7 115 22 137/71 100 Endotracheal Tube 50 07/17/16 12:32 127 26 50 07/17/16 12:17 127 26 50 07/17/16 12:00 50 07/17/16 12:00 123 23 146/74 100 Endotracheal Tube 50 07/17/16 12:00 124 07/17/16 11:45 113 159/75 07/17/16 11:07 101 16 100 Mechanical Ventilator 50 07/17/16 11:05 105 16 50 07/17/16 11:00 107 24 159/75 100 Endotracheal Tube 50 07/17/16 10:55 110 16 100 Mechanical Ventilator 50 07/17/16 10:55 50 07/17/16 10:00 107 24 132/71 100 Endotracheal Tube 50 07/17/16 09:10 112 23 50 07/17/16 09:00 108 23 155/69 100 Endotracheal Tube 50 07/17/16 08:00 98.6 105 26 145/60 100 Endotracheal Tube 50 07/17/16 08:00 50 07/17/16 08:00 105 07/17/16 07:28 107 18 100 Mechanical Ventilator 50 07/17/16 07:27 105 16 50 07/17/16 07:18 50 07/17/16 07:18 106 16 100 Mechanical Ventilator 50 07/17/16 07:00 101 26 116/52 97 Endotracheal Tube 50 07/17/16 06:15 106 129/72 07/17/16 06:00 108 23 129/72 100 Endotracheal Tube 50 07/17/16 05:00 93 21 130/62 100 Endotracheal Tube 50 07/17/16 04:55 93 19 50 07/17/16 04:00 98.9 95 20 131/73 100 Endotracheal Tube 50 07/17/16 04:00 50 07/17/16 04:00 95 07/17/16 03:14 93 16 100 Mechanical Ventilator 50 07/17/16 03:06 96 20 100 Mechanical Ventilator 50 07/17/16 03:06 50 07/17/16 03:05 96 20 50 07/17/16 03:00 102 20 132/62 100 Endotracheal Tube 50 07/17/16 02:00 102 18 140/76 100 Endotracheal Tube 50 07/17/16 01:20 101 20 50 07/17/16 01:00 101 22 131/59 100 Endotracheal Tube 50 07/17/16 00:00 111 25 140/64 100 Endotracheal Tube 50 07/17/16 00:00 50 07/17/16 00:00 111 07/16/16 23:46 114 147/63 07/16/16 23:00 114 24 147/63 100 Endotracheal Tube 50 07/16/16 22:58 115 17 100 Mechanical Ventilator 50 07/16/16 22:50 106 21 100 Mechanical Ventilator 50 07/16/16 22:50 50 07/16/16 22:49 106 21 50 07/16/16 22:00 112 23 159/64 100 Endotracheal Tube 50 07/16/16 21:12 107 22 50 07/16/16 21:00 105 22 157/65 100 Endotracheal Tube 50 07/16/16 20:00 110 07/16/16 20:00 50 07/16/16 20:00 98.5 117 26 146/86 100 Endotracheal Tube 50 07/16/16 19:29 111 23 100 Mechanical Ventilator 50 Intake and Output 07/16/16 07/17/16 19:00 07:00 Intake Total 2332.5 ml 1937.45 ml Output Total 1280 ml 1220 ml Balance 1052.5 ml 717.45 ml IV Total 1902.5 ml 1607.45 ml Tube Feeding 360 ml 300 ml Other 70 ml 30 ml Output Urine Total 1280 ml 1220 ml # Bowel Movements 2 3 Laboratory Tests 07/17/16 04:10: White Blood Count 15.7H, Red Blood Count 3.42L, Hemoglobin 9.4L, Hematocrit 29.5L, Mean Corpuscular Volume 86, Mean Corpuscular Hemoglobin 27.6, Mean Corpuscular Hemoglobin Concent 31.9L, Red Cell Distribution Width 16.6H, Platelet Count 292, Mean Platelet Volume 6.7, Neutrophils (%) (Auto) , Lymphocytes (%) (Auto) , Monocytes (%) (Auto) , Eosinophils (%) (Auto) , Basophils (%) (Auto) , Differential Total Cells Counted 100, Neutrophils % ( Manual) 92H, Lymphocytes % (Manual) 3L, Monocytes % (Manual) 3, Eosinophils % ( Manual) 0, Basophils % (Manual) 0, Band Neutrophils 2, Platelet Estimate Adequate, Platelet Morphology Normal, Hypochromasia 2+, Anisocytosis 1+, Sodium Level 144, Potassium Level 2.4*L, Chloride Level 108H, Carbon Dioxide Level 23, Anion Gap 13, Blood Urea Nitrogen 10, Creatinine < 0.2L, Estimat Glomerular Filtration Rate > 60, Glucose Level 137H, Calcium Level 7.2L Height (Feet): 5 Height (Inches): 6.00 Weight (Pounds): 195 Objective debilitated AA woman in ICU NCAT (+) trach CTA RRR obese soft abd, (+) GT OBS LISA BALL Jul 17, 2016 19:23
[2016-07-17] MEDS: Iron Sucrose 100 MG in NS 55 ML IVPB SCH (21:48)
[2016-07-18] MEDS: Metoclopramide 10mg/2ml Inj IVP SCH ×4 (00:32→17:22)
[2016-07-18 00:52] VITALS: BP 146/66
[2016-07-18] MEDS: Vancomycin 1 GM in D5W 275 ML IVPB SCH ×2 (03:22→16:12)
[2016-07-18] MEDS: Albuterol ud Inhalation HHN SCH ×6 (03:42→22:48)
[2016-07-18 04:00] VITALS: BP 125/88
[2016-07-18 05:39] LABS: MEAN CORPUSCULAR HEMOGLOBIN 27.2 PG (27.0-31.0); MEAN CORPUSCULAR HGB CONC 31.6 G/DL (32.0-36.0); MEAN CORPUSCULAR VOLUME 86 FL (80-99); MEAN PLATELET VOLUME 6.9 FL (6.5-10.1); PLATELET COUNT 274 K/UL (150-450); RED CELL DISTRIBUTION WIDTH 16.8 % (11.6-14.8); WHITE BLOOD COUNT 15.2 K/UL (4.8-10.8)
[2016-07-18] MEDS: Piperacillin/Tazobactam 3.375 GM in D5W 110 ML IVPB SCH ×3 (05:56→22:03)
[2016-07-18 05:59] LABS: ALANINE AMINOTRANSFERASE 19 U/L (3-33); ALBUMIN/GLOBULIN RATIO 0.4 (1.0-2.7); ANION GAP 13 (5-15); ASPARTATE AMINO TRANSFERASE 11 U/L (5-40); CALCIUM 7.2 mg/dL (8.6-10.2); CARBON DIOXIDE 22 mEQ/L (20-30); CHLORIDE 105 mEQ/L (98-107); CREATININE < 0.2 mg/dL (0.5-0.9); GLOMERULAR FILTRATION RATE > 60 mL/min (>60); HEMOLYSIS 0; POTASSIUM 3.6 mEQ/L (3.4-4.9); SODIUM 140 mEQ/L (135-145); TOTAL PROTEIN 4.8 g/dL (6.6-8.7)
[2016-07-18 07:32] LABS: ANISOCYTOSIS 1+; BAND NEUTROPHILS % (MANUAL) 2 % (0-8); BASOPHILS % (MANUAL) 0 % (0-2); EOSINOPHILS % (MANUAL) 1 % (0-3); HYPOCHROMASIA 2+; LYMPHOCYTES % (MANUAL) 9 % (20-45); METAMYELOCYTES % 1 % (0-0); NEUTROPHILS % (MANUAL) 84 % (45-75); PLATELET ESTIMATE ADEQUATE; PLATELET MORPHOLOGY NORMAL; TOTAL CELLS COUNTED 100
[2016-07-18 08:00] VITALS: BP 123/72
[2016-07-18] MEDS: Milk of Magnesia 30ml Ud GT SCH (08:44)
[2016-07-18] MEDS: Ascorbic Acid 500mg tab GT SCH (08:44)
[2016-07-18] MEDS: Zinc Sulfate 220mg cap GT SCH (08:44)
[2016-07-18] MEDS: Aspirin Baby 81mg GT SCH (08:44)
[2016-07-18] MEDS ORDERED: Pantoprazole Inj IVP SCH (09:00)
[2016-07-18 09:10] LABS: OTHERS PATHOLOGIST COMMENT
--- NOTE | 2016-07-18 11:47 | Infectious Diseases Prog Note ---
Assessment/Plan Assessment/Plan antibiotics : vancomycin iv, zosyn A 1. MRSA sepsis 2. gram negative pneumonia 3. respiratory failure 4. leucocytosis improving 5. encephalopathy P 1. continue vancomycin iv, zosyn 2. will follow up cultures Subjective ROS Limited/Unobtainable: Yes Allergies: Coded Allergies: SULFA (SULFONAMIDE ANTIBIOTICS) (Verified Allergy, Intermediate, 02/07/16) Objective Vital Signs Last 24 Hour Vital Signs Date Time Temp Pulse Resp B/P Pulse Ox O2 Delivery O2 Flow Rate FiO2 07/18/16 11:03 102 16 100 Mechanical Ventilator 07/18/16 10:56 104 16 50 07/18/16 10:56 104 16 100 Mechanical Ventilator 07/18/16 10:56 104 16 Mechanical Ventilator 100 07/18/16 09:18 95 18 50 07/18/16 08:00 108 07/18/16 08:00 98.3 106 25 123/72 100 Mechanical Ventilator 50 07/18/16 08:00 50 07/18/16 07:37 98 16 99 Mechanical Ventilator 07/18/16 07:29 97 17 50 07/18/16 07:29 97 17 98 Mechanical Ventilator 07/18/16 05:56 83 124/66 07/18/16 05:30 96 22 50 07/18/16 04:00 98.2 118 22 125/88 100 Mechanical Ventilator 50 07/18/16 04:00 50 07/18/16 04:00 93 07/18/16 03:44 96 16 99 Mechanical Ventilator 07/18/16 03:43 93 17 98 Mechanical Ventilator 07/18/16 03:30 93 19 50 07/18/16 01:08 104 19 50 07/18/16 00:52 98.2 90 20 146/66 100 Mechanical Ventilator 50 07/18/16 00:32 90 145/66 07/18/16 00:00 50 07/17/16 23:04 106 24 50 07/17/16 23:03 110 22 100 Mechanical Ventilator 07/17/16 23:03 103 07/17/16 23:02 102 22 100 Mechanical Ventilator 07/17/16 21:30 102 25 50 07/17/16 20:00 50 07/17/16 19:31 Mechanical Ventilator 07/17/16 19:30 116 22 50 07/17/16 19:26 24 Mechanical Ventilator 07/17/16 19:04 120 07/17/16 19:00 98.2 118 22 125/88 100 Mechanical Ventilator 50 07/17/16 18:01 126 136/57 07/17/16 18:00 123 23 135/71 100 Endotracheal Tube 50 07/17/16 17:00 126 21 136/57 100 Endotracheal Tube 50 07/17/16 16:30 133 22 50 07/17/16 16:00 122 07/17/16 16:00 50 07/17/16 16:00 99.0 121 22 146/62 99 Endotracheal Tube 50 07/17/16 15:30 117/59 07/17/16 15:00 119 23 117/59 100 Endotracheal Tube 50 07/17/16 14:38 119 16 100 Mechanical Ventilator 50 07/17/16 14:37 114 16 50 07/17/16 14:30 50 07/17/16 14:30 114 16 100 Mechanical Ventilator 50 07/17/16 14:00 119 21 121/61 100 Endotracheal Tube 50 07/17/16 13:00 98.7 115 22 137/71 100 Endotracheal Tube 50 07/17/16 12:32 127 26 50 07/17/16 12:17 127 26 50 07/17/16 12:00 50 07/17/16 12:00 123 23 146/74 100 Endotracheal Tube 50 07/17/16 12:00 124 07/17/16 11:45 113 159/75 Height (Feet): 5 Height (Inches): 6.00 Weight (Pounds): 195 HEENT: status post trach Respiratory/Chest: lungs clear Cardiovascular: normal rate, regular rhythm, no gallop/murmur Abdomen: soft, non tender, other - GT Extremities: other - + edema, left arm PICC Microbiology Date/Time Source Procedure Growth Status 07/16/16 11:30 Blood Blood Culture - Preliminary NO GROWTH AFTER 24 HOURS Resulted 07/16/16 11:30 Sputum Gram Stain - Final Resulted 07/16/16 11:30 Sputum Culture - Preliminary Gram Negative Bacillus 1 Gram Negative Bacillus 2 Resulted Laboratory Tests Test 07/18/16 04:00 White Blood Count 15.2 K/UL (4.8-10.8) H Red Blood Count 3.30 M/UL (4.20-5.40) L Hemoglobin 9.0 G/DL (12.0-16.0) L Hematocrit 28.4 % (37.0-47.0) L Mean Corpuscular Volume 86 FL (80-99) Mean Corpuscular Hemoglobin 27.2 PG (27.0-31.0) Mean Corpuscular Hemoglobin Concent 31.6 G/DL (32.0-36.0) L Red Cell Distribution Width 16.8 % (11.6-14.8) H Platelet Count 274 K/UL (150-450) Mean Platelet Volume 6.9 FL (6.5-10.1) Neutrophils (%) (Auto) % (45.0-75.0) Lymphocytes (%) (Auto) % (20.0-45.0) Monocytes (%) (Auto) % (1.0-10.0) Eosinophils (%) (Auto) % (0.0-3.0) Basophils (%) (Auto) % (0.0-2.0) Differential Total Cells Counted 100 Neutrophils % (Manual) 84 % (45-75) H Lymphocytes % (Manual) 9 % (20-45) L Monocytes % (Manual) 3 % (1-10) Eosinophils % (Manual) 1 % (0-3) Basophils % (Manual) 0 % (0-2) Metamyelocytes % 1 % (0-0) H Band Neutrophils 2 % (0-8) Platelet Estimate Adequate Platelet Morphology Normal Hypochromasia 2+ Anisocytosis 1+ Sodium Level 140 mEQ/L (135-145) Potassium Level 3.6 mEQ/L (3.4-4.9) Chloride Level 105 mEQ/L (98-107) Carbon Dioxide Level 22 mEQ/L (20-30) Anion Gap 13 (5-15) Blood Urea Nitrogen 8 mg/dL (7-23) Creatinine < 0.2 mg/dL (0.5-0.9) L Estimat Glomerular Filtration Rate > 60 mL/min (>60) Glucose Level 139 mg/dL (74-106) H Calcium Level 7.2 mg/dL (8.6-10.2) L Total Bilirubin 0.5 mg/dL (0.0-1.2) Aspartate Amino Transf (AST/SGOT) 11 U/L (5-40) Alanine Aminotransferase (ALT/SGPT) 19 U/L (3-33) Alkaline Phosphatase 77 U/L (35-104) Total Protein 4.8 g/dL (6.6-8.7) L Albumin 1.4 g/dL (3.5-5.2) L Globulin 3.4 g/dL Albumin/Globulin Ratio 0.4 (1.0-2.7) L KIMBERLI HERMOSILLO Jul 18, 2016 11:47
[2016-07-18 12:00] VITALS: BP 103/67
--- NOTE | 2016-07-18 13:24 | General Progress Note ---
Assessment/Plan Assessment/Plan IMPRESSION: 1. Sepsis. 2. Respiratory failure. 3. Tracheostomy. 4. Metabolic acidosis. 5. Severe protein-calorie malnutrition. 6. Evidence of hypoxemia. 7. Leukocytosis. 8. Anemia of unclear etiology. 9. reduced K 10. MRSA bacteremia PLAN care noted IV antibiotics per ID off IV fluids replace K- now better GI follow up; on feeds still with elevated WBC; dc once improved ID follow up TOO care Subjective ROS Limited/Unobtainable: Yes Allergies: Coded Allergies: SULFA (SULFONAMIDE ANTIBIOTICS) (Verified Allergy, Intermediate, 02/07/16) Subjective remains ill poor LOC overall now in TOO Objective Last 24 Hour Vital Signs Date Time Temp Pulse Resp B/P Pulse Ox O2 Delivery O2 Flow Rate FiO2 07/18/16 12:42 106 17 50 07/18/16 12:01 50 07/18/16 12:00 98.7 114 22 103/67 100 Mechanical Ventilator 50 07/18/16 12:00 112 07/18/16 11:42 114 105/68 07/18/16 11:03 102 16 100 Mechanical Ventilator 07/18/16 10:56 104 16 50 07/18/16 10:56 104 16 100 Mechanical Ventilator 07/18/16 10:56 104 16 Mechanical Ventilator 100 07/18/16 09:18 95 18 50 07/18/16 08:00 108 07/18/16 08:00 98.3 106 25 123/72 100 Mechanical Ventilator 50 07/18/16 08:00 50 07/18/16 07:37 98 16 99 Mechanical Ventilator 07/18/16 07:29 97 17 50 07/18/16 07:29 97 17 98 Mechanical Ventilator 07/18/16 05:56 83 124/66 07/18/16 05:30 96 22 50 07/18/16 04:00 98.2 118 22 125/88 100 Mechanical Ventilator 50 07/18/16 04:00 50 07/18/16 04:00 93 07/18/16 03:44 96 16 99 Mechanical Ventilator 07/18/16 03:43 93 17 98 Mechanical Ventilator 07/18/16 03:30 93 19 50 07/18/16 01:08 104 19 50 07/18/16 00:52 98.2 90 20 146/66 100 Mechanical Ventilator 50 07/18/16 00:32 90 145/66 07/18/16 00:00 50 07/17/16 23:04 106 24 50 07/17/16 23:03 110 22 100 Mechanical Ventilator 07/17/16 23:03 103 07/17/16 23:02 102 22 100 Mechanical Ventilator 07/17/16 21:30 102 25 50 07/17/16 20:00 50 07/17/16 19:31 Mechanical Ventilator 07/17/16 19:30 116 22 50 07/17/16 19:26 24 Mechanical Ventilator 07/17/16 19:04 120 07/17/16 19:00 98.2 118 22 125/88 100 Mechanical Ventilator 50 07/17/16 18:01 126 136/57 07/17/16 18:00 123 23 135/71 100 Endotracheal Tube 50 07/17/16 17:00 126 21 136/57 100 Endotracheal Tube 50 07/17/16 16:30 133 22 50 07/17/16 16:00 122 07/17/16 16:00 50 07/17/16 16:00 99.0 121 22 146/62 99 Endotracheal Tube 50 07/17/16 15:30 117/59 07/17/16 15:00 119 23 117/59 100 Endotracheal Tube 50 07/17/16 14:38 119 16 100 Mechanical Ventilator 50 07/17/16 14:37 114 16 50 07/17/16 14:30 50 07/17/16 14:30 114 16 100 Mechanical Ventilator 50 07/17/16 14:00 119 21 121/61 100 Endotracheal Tube 50 Intake and Output 07/17/16 07/18/16 19:00 07:00 Intake Total 1266.15 ml 1762.500 ml Output Total 1140 ml Balance 126.15 ml 1762.500 ml Free Water 100 ml IV Total 1156.15 ml 1402.500 ml Tube Feeding 0 ml 260 ml Other 110 ml Output Urine Total 1140 ml # Bowel Movements 2 Laboratory Tests 07/18/16 04:00: White Blood Count 15.2H, Red Blood Count 3.30L, Hemoglobin 9.0L, Hematocrit 28.4L, Mean Corpuscular Volume 86, Mean Corpuscular Hemoglobin 27.2, Mean Corpuscular Hemoglobin Concent 31.6L, Red Cell Distribution Width 16.8H, Platelet Count 274, Mean Platelet Volume 6.9, Neutrophils (%) (Auto) , Lymphocytes (%) (Auto) , Monocytes (%) (Auto) , Eosinophils (%) (Auto) , Basophils (%) (Auto) , Differential Total Cells Counted 100, Neutrophils % ( Manual) 84H, Lymphocytes % (Manual) 9L, Monocytes % (Manual) 3, Eosinophils % ( Manual) 1, Basophils % (Manual) 0, Metamyelocytes % 1H, Band Neutrophils 2, Platelet Estimate Adequate, Platelet Morphology Normal, Hypochromasia 2+, Anisocytosis 1+, Sodium Level 140, Potassium Level 3.6, Chloride Level 105, Carbon Dioxide Level 22, Anion Gap 13, Blood Urea Nitrogen 8, Creatinine < 0.2L , Estimat Glomerular Filtration Rate > 60, Glucose Level 139H, Calcium Level 7.2L, Total Bilirubin 0.5, Aspartate Amino Transf (AST/SGOT) 11, Alanine Aminotransferase (ALT/SGPT) 19, Alkaline Phosphatase 77, Total Protein 4.8L, Albumin 1.4L, Globulin 3.4, Albumin/Globulin Ratio 0.4L Height (Feet): 5 Height (Inches): 6.00 Weight (Pounds): 195 Objective GENERAL: The patient is ill appearing female, chronically ill, older than her stated age. HEENT: Tracheostomy is in midline. NECK: Supple. LUNGS: Coarse breath sounds. symmetric CARDIAC: S1 and S2. Tachycardia improved ABDOMEN: Soft. G-tube. EXTREMITIES: Significant contractures overall. MARIO ARIAS Jul 18, 2016 13:24
[2016-07-18 16:00] VITALS: BP 137/78
[2016-07-18] MEDS ORDERED: NS 275ml ONE (16:28)
[2016-07-18] MEDS ORDERED: Tubing IV Secondary IV ONE ×2 (16:28→16:32)
[2016-07-18] MEDS ORDERED: D5W 275ml ONE (16:32)
[2016-07-18] MEDS ORDERED: D5NS 1000ml IV ONE (16:32)
--- NOTE | 2016-07-18 19:11 | General Progress Note ---
Assessment/Plan Assessment/Plan Assessment - Gastritis - Anemia - Resp failure / trach - dysphagia / GT - TF intolerance Recommendations - Continue TF - Reglan trial - laxative trial - monitor CBC - abx Subjective Allergies: Coded Allergies: SULFA (SULFONAMIDE ANTIBIOTICS) (Verified Allergy, Intermediate, 02/07/16) Subjective Seen earlier today RN reports some TF intolerance non communicative patient (+) BM Objective Last 24 Hour Vital Signs Date Time Temp Pulse Resp B/P Pulse Ox O2 Delivery O2 Flow Rate FiO2 07/18/16 18:53 120 16 100 Mechanical Ventilator 07/18/16 18:50 117 18 100 Mechanical Ventilator 07/18/16 18:47 120 31 50 07/18/16 17:22 122 137/78 07/18/16 16:44 106 18 50 07/18/16 16:00 99.2 122 25 137/78 100 Mechanical Ventilator 50 07/18/16 16:00 50 07/18/16 16:00 117 07/18/16 14:50 104 18 100 Mechanical Ventilator 07/18/16 14:41 102 17 99 Mechanical Ventilator 07/18/16 14:41 103 17 50 07/18/16 12:42 106 17 50 07/18/16 12:01 50 07/18/16 12:00 98.7 114 22 103/67 100 Mechanical Ventilator 50 07/18/16 12:00 112 07/18/16 11:42 114 105/68 07/18/16 11:03 102 16 100 Mechanical Ventilator 07/18/16 10:56 104 16 50 07/18/16 10:56 104 16 100 Mechanical Ventilator 07/18/16 10:56 104 16 Mechanical Ventilator 100 07/18/16 09:18 95 18 50 07/18/16 08:00 108 07/18/16 08:00 98.3 106 25 123/72 100 Mechanical Ventilator 50 07/18/16 08:00 50 07/18/16 07:37 98 16 99 Mechanical Ventilator 07/18/16 07:29 97 17 50 07/18/16 07:29 97 17 98 Mechanical Ventilator 07/18/16 05:56 83 124/66 07/18/16 05:30 96 22 50 07/18/16 04:00 98.2 118 22 125/88 100 Mechanical Ventilator 50 07/18/16 04:00 50 07/18/16 04:00 93 07/18/16 03:44 96 16 99 Mechanical Ventilator 07/18/16 03:43 93 17 98 Mechanical Ventilator 07/18/16 03:30 93 19 50 07/18/16 01:08 104 19 50 07/18/16 00:52 98.2 90 20 146/66 100 Mechanical Ventilator 50 07/18/16 00:32 90 145/66 07/18/16 00:00 50 07/17/16 23:04 106 24 50 07/17/16 23:03 110 22 100 Mechanical Ventilator 07/17/16 23:03 103 07/17/16 23:02 102 22 100 Mechanical Ventilator 07/17/16 21:30 102 25 50 07/17/16 20:00 50 07/17/16 19:31 Mechanical Ventilator 07/17/16 19:30 116 22 50 07/17/16 19:26 24 Mechanical Ventilator Intake and Output 07/17/16 07/18/16 19:00 07:00 Intake Total 1266.15 ml 1762.500 ml Output Total 1140 ml Balance 126.15 ml 1762.500 ml Free Water 100 ml IV Total 1156.15 ml 1402.500 ml Tube Feeding 0 ml 260 ml Other 110 ml Output Urine Total 1140 ml # Bowel Movements 2 Laboratory Tests 07/18/16 04:00: White Blood Count 15.2H, Red Blood Count 3.30L, Hemoglobin 9.0L, Hematocrit 28.4L, Mean Corpuscular Volume 86, Mean Corpuscular Hemoglobin 27.2, Mean Corpuscular Hemoglobin Concent 31.6L, Red Cell Distribution Width 16.8H, Platelet Count 274, Mean Platelet Volume 6.9, Neutrophils (%) (Auto) , Lymphocytes (%) (Auto) , Monocytes (%) (Auto) , Eosinophils (%) (Auto) , Basophils (%) (Auto) , Differential Total Cells Counted 100, Neutrophils % ( Manual) 84H, Lymphocytes % (Manual) 9L, Monocytes % (Manual) 3, Eosinophils % ( Manual) 1, Basophils % (Manual) 0, Metamyelocytes % 1H, Band Neutrophils 2, Platelet Estimate Adequate, Platelet Morphology Normal, Hypochromasia 2+, Anisocytosis 1+, Sodium Level 140, Potassium Level 3.6, Chloride Level 105, Carbon Dioxide Level 22, Anion Gap 13, Blood Urea Nitrogen 8, Creatinine < 0.2L , Estimat Glomerular Filtration Rate > 60, Glucose Level 139H, Calcium Level 7.2L, Total Bilirubin 0.5, Aspartate Amino Transf (AST/SGOT) 11, Alanine Aminotransferase (ALT/SGPT) 19, Alkaline Phosphatase 77, Total Protein 4.8L, Albumin 1.4L, Globulin 3.4, Albumin/Globulin Ratio 0.4L Height (Feet): 5 Height (Inches): 6.00 Weight (Pounds): 195 Objective debilitated AA woman in ICU NCAT (+) trach CTA RRR obese soft abd, (+) GT OBS LISA BALL Jul 18, 2016 19:11
[2016-07-18] MEDS ORDERED: Sorbitol Solution UD 30ml ORAL ONE (19:15)
[2016-07-18 20:00] VITALS: BP 129/68
[2016-07-18] MEDS: Iron Sucrose 100 MG in NS 55 ML IVPB SCH (20:00)
[2016-07-19] VITALS: BP 146/98
[2016-07-19] MEDS: Metoclopramide 10mg/2ml Inj IVP SCH ×5 (00:19→23:07)
[2016-07-19] MEDS: Albuterol ud Inhalation HHN SCH ×6 (02:55→22:35)
[2016-07-19] MEDS: Vancomycin 1 GM in D5W 275 ML IVPB SCH ×2 (03:14→15:29)
[2016-07-19 04:00] VITALS: BP 127/68
[2016-07-19] MEDS: Piperacillin/Tazobactam 3.375 GM in D5W 110 ML IVPB SCH (06:17)
[2016-07-19 08:00] VITALS: BP 126/78
--- NOTE | 2016-07-19 08:56 | General Progress Note ---
Assessment/Plan Assessment/Plan IMPRESSION: 1. Sepsis. 2. Respiratory failure. 3. Tracheostomy. 4. Metabolic acidosis. 5. Severe protein-calorie malnutrition. 6. Evidence of hypoxemia. 7. Leukocytosis. 8. Anemia of unclear etiology. 9. reduced K 10. MRSA bacteremia PLAN care noted IV antibiotics per ID replace K- now better GI follow up; on feeds still with elevated WBC; dc once improved ID follow up for dc planning TOO care Subjective Allergies: Coded Allergies: SULFA (SULFONAMIDE ANTIBIOTICS) (Verified Allergy, Intermediate, 02/07/16) Subjective remains ill poor LOC overall stable in TOO Objective Last 24 Hour Vital Signs Date Time Temp Pulse Resp B/P Pulse Ox O2 Delivery O2 Flow Rate FiO2 07/19/16 08:00 50 07/19/16 08:00 98.3 105 24 126/78 100 Mechanical Ventilator 50 07/19/16 07:26 111 16 100 Mechanical Ventilator 07/19/16 07:13 101 28 99 Mechanical Ventilator 07/19/16 07:08 101 28 50 07/19/16 06:17 122 145/89 07/19/16 04:45 108 27 50 07/19/16 04:00 98.3 109 29 127/68 100 Mechanical Ventilator 50 07/19/16 04:00 111 07/19/16 04:00 50 07/19/16 02:56 109 18 100 Mechanical Ventilator 07/19/16 02:55 111 31 100 Mechanical Ventilator 07/19/16 02:54 110 24 50 07/19/16 00:41 120 24 50 07/19/16 00:19 125 146/98 07/19/16 00:00 98.2 125 18 146/98 100 Mechanical Ventilator 50 07/19/16 00:00 50 07/18/16 23:42 119 07/18/16 22:49 119 24 100 Mechanical Ventilator 07/18/16 22:49 117 24 100 Mechanical Ventilator 07/18/16 22:45 118 25 50 07/18/16 20:38 117 27 50 07/18/16 20:00 99.1 124 34 129/68 100 Mechanical Ventilator 50 07/18/16 20:00 50 07/18/16 19:27 124 07/18/16 18:53 120 16 100 Mechanical Ventilator 07/18/16 18:50 117 18 100 Mechanical Ventilator 07/18/16 18:47 120 31 50 07/18/16 17:22 122 137/78 07/18/16 16:44 106 18 50 07/18/16 16:00 99.2 122 25 137/78 100 Mechanical Ventilator 50 07/18/16 16:00 50 07/18/16 16:00 117 07/18/16 14:50 104 18 100 Mechanical Ventilator 07/18/16 14:41 102 17 99 Mechanical Ventilator 07/18/16 14:41 103 17 50 07/18/16 12:42 106 17 50 07/18/16 12:01 50 07/18/16 12:00 98.7 114 22 103/67 100 Mechanical Ventilator 50 07/18/16 12:00 112 07/18/16 11:42 114 105/68 07/18/16 11:03 102 16 100 Mechanical Ventilator 07/18/16 10:56 104 16 50 07/18/16 10:56 104 16 100 Mechanical Ventilator 07/18/16 10:56 104 16 Mechanical Ventilator 100 07/18/16 09:18 95 18 50 Intake and Output 07/18/16 07/19/16 19:00 07:00 Intake Total 1262.5 ml 755.000 ml Output Total 1350 ml 500 ml Balance -87.5 ml 255.000 ml Free Water 840 ml 160 ml IV Total 192.5 ml 445.000 ml Tube Feeding 180 ml 150 ml Other 50 ml Output Urine Total 1350 ml 500 ml # Bowel Movements 1 2 Height (Feet): 5 Height (Inches): 6.00 Weight (Pounds): 195 Objective GENERAL: The patient is ill appearing female, chronically ill, older than her stated age. HEENT: Tracheostomy is in midline. NECK: Supple. LUNGS: Coarse breath sounds. symmetric CARDIAC: S1 and S2. Tachycardia improved ABDOMEN: Soft. G-tube. EXTREMITIES: Significant contractures overall. MARIO ARIAS Jul 19, 2016 08:56
[2016-07-19] MEDS: Aspirin Baby 81mg GT SCH (09:01)
[2016-07-19] MEDS: Ascorbic Acid 500mg tab GT SCH (09:01)
[2016-07-19] MEDS: Milk of Magnesia 30ml Ud GT SCH (09:01)
[2016-07-19] MEDS: Zinc Sulfate 220mg cap GT SCH (09:01)
[2016-07-19 12:00] VITALS: BP 101/73
--- NOTE | 2016-07-19 12:09 | General Progress Note ---
Assessment/Plan Assessment/Plan Assessment - Gastritis - Anemia - Leukocytosis - Resp failure / trach - dysphagia / GT - TF intolerance Recommendations - Continue TF - Reglan trial - laxative trial - monitor CBC - abx - check CT abd/pelvis Subjective Allergies: Coded Allergies: SULFA (SULFONAMIDE ANTIBIOTICS) (Verified Allergy, Intermediate, 02/07/16) Subjective Seen earlier today RN reports some TF intolerance non communicative patient (+) BM Objective Last 24 Hour Vital Signs Date Time Temp Pulse Resp B/P Pulse Ox O2 Delivery O2 Flow Rate FiO2 07/19/16 12:00 50 07/19/16 11:34 108 17 100 Mechanical Ventilator 07/19/16 11:30 98 101/74 07/19/16 11:27 104 20 99 Mechanical Ventilator 07/19/16 11:25 101 27 50 07/19/16 09:11 103 27 50 07/19/16 08:00 50 07/19/16 08:00 98.3 105 24 126/78 100 Mechanical Ventilator 50 07/19/16 08:00 105 07/19/16 07:26 111 16 100 Mechanical Ventilator 07/19/16 07:13 101 28 99 Mechanical Ventilator 07/19/16 07:08 101 28 50 07/19/16 06:17 122 145/89 07/19/16 04:45 108 27 50 07/19/16 04:00 98.3 109 29 127/68 100 Mechanical Ventilator 50 07/19/16 04:00 111 07/19/16 04:00 50 07/19/16 02:56 109 18 100 Mechanical Ventilator 07/19/16 02:55 111 31 100 Mechanical Ventilator 07/19/16 02:54 110 24 50 07/19/16 00:41 120 24 50 07/19/16 00:19 125 146/98 07/19/16 00:00 98.2 125 18 146/98 100 Mechanical Ventilator 50 07/19/16 00:00 50 07/18/16 23:42 119 07/18/16 22:49 119 24 100 Mechanical Ventilator 07/18/16 22:49 117 24 100 Mechanical Ventilator 07/18/16 22:45 118 25 50 07/18/16 20:38 117 27 50 07/18/16 20:00 99.1 124 34 129/68 100 Mechanical Ventilator 50 07/18/16 20:00 50 07/18/16 19:27 124 07/18/16 18:53 120 16 100 Mechanical Ventilator 07/18/16 18:50 117 18 100 Mechanical Ventilator 07/18/16 18:47 120 31 50 07/18/16 17:22 122 137/78 07/18/16 16:44 106 18 50 07/18/16 16:00 99.2 122 25 137/78 100 Mechanical Ventilator 50 07/18/16 16:00 50 07/18/16 16:00 117 07/18/16 14:50 104 18 100 Mechanical Ventilator 07/18/16 14:41 102 17 99 Mechanical Ventilator 07/18/16 14:41 103 17 50 07/18/16 12:42 106 17 50 Intake and Output 07/18/16 07/19/16 19:00 07:00 Intake Total 1262.5 ml 812.500 ml Output Total 1350 ml 500 ml Balance -87.5 ml 312.500 ml Free Water 840 ml 160 ml IV Total 192.5 ml 472.500 ml Tube Feeding 180 ml 180 ml Other 50 ml Output Urine Total 1350 ml 500 ml # Bowel Movements 1 2 Height (Feet): 5 Height (Inches): 6.00 Weight (Pounds): 195 Objective debilitated AA woman in ICU NCAT (+) trach CTA RRR obese soft abd, (+) GT OBS LISA BALL Jul 19, 2016 12:09
--- NOTE | 2016-07-19 13:17 | Infectious Diseases Prog Note ---
Assessment/Plan Assessment/Plan A: MRSA sepsis Infected pressure ulcer pneumonia with Acinetobacter & Providencia VDRF Encephalopathy P; repeat blood culture, sputum culture Continue Vancomycin Change Zosyn to Cefepime Subjective ROS Limited/Unobtainable: Yes Allergies: Coded Allergies: SULFA (SULFONAMIDE ANTIBIOTICS) (Verified Allergy, Intermediate, 02/07/16) Objective Vital Signs Last 24 Hour Vital Signs Date Time Temp Pulse Resp B/P Pulse Ox O2 Delivery O2 Flow Rate FiO2 07/19/16 12:00 50 07/19/16 12:00 98.6 99 16 101/73 100 Mechanical Ventilator 50 07/19/16 11:34 108 17 100 Mechanical Ventilator 07/19/16 11:30 98 101/74 07/19/16 11:27 104 20 99 Mechanical Ventilator 07/19/16 11:25 101 27 50 07/19/16 09:11 103 27 50 07/19/16 08:00 50 07/19/16 08:00 98.3 105 24 126/78 100 Mechanical Ventilator 50 07/19/16 08:00 105 07/19/16 07:26 111 16 100 Mechanical Ventilator 07/19/16 07:13 101 28 99 Mechanical Ventilator 07/19/16 07:08 101 28 50 07/19/16 06:17 122 145/89 07/19/16 04:45 108 27 50 07/19/16 04:00 98.3 109 29 127/68 100 Mechanical Ventilator 50 07/19/16 04:00 111 07/19/16 04:00 50 07/19/16 02:56 109 18 100 Mechanical Ventilator 07/19/16 02:55 111 31 100 Mechanical Ventilator 07/19/16 02:54 110 24 50 07/19/16 00:41 120 24 50 07/19/16 00:19 125 146/98 07/19/16 00:00 98.2 125 18 146/98 100 Mechanical Ventilator 50 07/19/16 00:00 50 07/18/16 23:42 119 07/18/16 22:49 119 24 100 Mechanical Ventilator 07/18/16 22:49 117 24 100 Mechanical Ventilator 07/18/16 22:45 118 25 50 07/18/16 20:38 117 27 50 07/18/16 20:00 99.1 124 34 129/68 100 Mechanical Ventilator 50 07/18/16 20:00 50 07/18/16 19:27 124 4/26/17 18:53 120 16 100 Mechanical Ventilator 07/18/16 18:50 117 18 100 Mechanical Ventilator 07/18/16 18:47 120 31 50 07/18/16 17:22 122 137/78 07/18/16 16:44 106 18 50 07/18/16 16:00 99.2 122 25 137/78 100 Mechanical Ventilator 50 07/18/16 16:00 50 07/18/16 16:00 117 07/18/16 14:50 104 18 100 Mechanical Ventilator 07/18/16 14:41 102 17 99 Mechanical Ventilator 07/18/16 14:41 103 17 50 Height (Feet): 5 Height (Inches): 6.00 Weight (Pounds): 195 General Appearance: no acute distress HEENT: status post trach Respiratory/Chest: lungs clear, other - on ventilaor Cardiovascular: tachycardia Abdomen: soft, non tender, other - tube feeding Extremities: other - generalized edema, left arm PICC line Current Medications Medications (Trade) Dose Ordered Sig/Daljit Route PRN Reason Start Time Stop Time Status Last Admin Dose Admin Albuterol Sulfate (Proventil) 2.5 mg Q4HRT HHN 07/17/16 23:00 07/22/16 22:59 07/19/16 11:27 Ascorbic Acid (Vitamin C) 500 mg DAILY GT 07/18/16 09:00 08/17/16 08:59 07/19/16 09:01 Aspirin (ASA) 81 mg DAILY GT 07/18/16 09:00 08/17/16 08:59 07/19/16 09:01 Atorvastatin Calcium (Lipitor) 10 mg BEDTIME GT 07/17/16 21:00 08/16/16 20:59 07/18/16 20:02 Diltiazem HCl (Cardizem) 60 mg Q6HR GT 07/18/16 00:00 08/17/16 00:00 07/19/16 06:17 Iron Sucrose 100 mg/Sodium Chloride 60 ml @ 240 mls/hr BEDTIME IVPB 07/17/16 21:00 07/19/16 21:01 07/18/16 20:00 Lansoprazole (Prevacid) 30 mg DAILY GT 07/18/16 09:00 08/17/16 08:59 07/19/16 09:01 Magnesium Hydroxide (Mom) 30 ml DAILY GT 07/18/16 09:00 08/17/16 08:59 07/19/16 09:01 Metoclopramide HCl (Reglan) 5 mg Q6HR IVP 07/18/16 00:00 08/17/16 00:00 07/19/16 11:30 Piperacillin Sod/ Tazobactam Sod 3.375 gm/Dextrose 110 ml @ 27.5 mls/hr EVERY 8 HOURS IVPB 07/17/16 22:00 07/26/16 21:59 07/19/16 06:17 Tramadol HCl (Ultram) 50 mg Q6H PRN GT For Pain 07/17/16 19:30 07/24/16 19:29 Vancomycin HCl (Vanco rx to dose) 1 ea DAILY PRN MISC Per rx protocol 07/17/16 19:30 08/16/16 19:29 Vancomycin HCl/ Dextrose (Vancomycin/D5W) 275 ml @ 183.708 mls/hr Q12HR@0400,1600 IVPB 07/18/16 04:00 07/23/16 03:59 07/19/16 03:14 Zinc Sulfate (Zinc Sulfate) 220 mg DAILY GT 07/18/16 09:00 08/17/16 08:59 07/19/16 09:01 KAIDEN MOHAN Jul 19, 2016 13:17
[2016-07-19] MEDS ORDERED: Tubing IV Secondary IV ONE (14:18)
[2016-07-19] MEDS ORDERED: NS 275ml ONE (14:18)
[2016-07-19 16:00] VITALS: BP 123/77
[2016-07-19 20:00] VITALS: BP 120/73
[2016-07-19] MEDS: Cefepime HCl 1 GM in D5W 55 ML IVPB SCH (20:29)
[2016-07-19] MEDS: Iron Sucrose 100 MG in NS 55 ML IVPB SCH (20:29)
[2016-07-20] VITALS: BP 134/62
[2016-07-20] MEDS: Albuterol ud Inhalation HHN SCH ×6 (02:48→22:47)
[2016-07-20 04:00] VITALS: BP 131/61
[2016-07-20] MEDS: Vancomycin 1 GM in D5W 275 ML IVPB SCH ×2 (04:24→16:57)
[2016-07-20] MEDS: Metoclopramide 10mg/2ml Inj IVP SCH ×4 (05:25→23:35)
[2016-07-20 08:00] VITALS: BP 96/56
[2016-07-20] MEDS: Zinc Sulfate 220mg cap GT SCH (09:46)
[2016-07-20] MEDS: traMADol 50mg tab GT PRN (09:48)
[2016-07-20] MEDS: Aspirin Baby 81mg GT SCH (09:48)
[2016-07-20] MEDS: Ascorbic Acid 500mg tab GT SCH (09:48)
[2016-07-20] MEDS: Milk of Magnesia 30ml Ud GT SCH (09:48)
[2016-07-20] MEDS: Cefepime HCl 1 GM in D5W 55 ML IVPB SCH ×2 (09:49→20:39)
[2016-07-20] MEDS ORDERED: NS 275ml ONE (10:08)
[2016-07-20 10:55] LABS: MEAN CORPUSCULAR HEMOGLOBIN 26.9 PG (27.0-31.0); MEAN CORPUSCULAR HGB CONC 30.9 G/DL (32.0-36.0); MEAN CORPUSCULAR VOLUME 87 FL (80-99); PLATELET COUNT 336 K/UL (150-450); RED BLOOD COUNT 3.98 M/UL (4.20-5.40); RED CELL DISTRIBUTION WIDTH 16.9 % (11.6-14.8)
--- NOTE | 2016-07-20 11:18 | Infectious Diseases Prog Note ---
"Assessment/Plan Assessment/Plan antibiotics : vancomycin iv, cefepime A 1. MRSA sepsis 2. acenitobacter | providencia pneumonia 3. respiratory failure 4. leucocytosis increasing 5. encephalopathy P 1. continue vancomycin iv, cefepime 2. stool for c.diff 3. start flagyl 4. will follow up cultures Subjective ROS Limited/Unobtainable: Yes Allergies: Coded Allergies: SULFA (SULFONAMIDE ANTIBIOTICS) (Verified Allergy, Intermediate, 02/07/16) Objective Vital Signs Last 24 Hour Vital Signs Date Time Temp Pulse Resp B/P Pulse Ox O2 Delivery O2 Flow Rate FiO2 07/20/16 09:01 112 21 50 07/20/16 08:04 114 19 100 Mechanical Ventilator 07/20/16 08:00 99.9 117 23 96/56 100 Mechanical Ventilator 50 07/20/16 07:57 116 18 98 Mechanical Ventilator 07/20/16 07:49 116 18 50 07/20/16 05:25 118 128/66 07/20/16 04:59 115 24 50 07/20/16 04:00 50 07/20/16 04:00 121 07/20/16 04:00 98.7 100 15 131/61 100 Nasal Cannula 07/20/16 02:51 125 17 100 Mechanical Ventilator 07/20/16 02:50 124 16 100 Mechanical Ventilator 07/20/16 02:47 122 26 50 07/20/16 01:05 124 24 50 07/20/16 00:00 128 07/20/16 00:00 50 07/20/16 00:00 99.0 125 16 134/62 99 Nasal Cannula 07/19/16 23:06 116 124/76 07/19/16 22:46 108 17 100 Mechanical Ventilator 07/19/16 22:35 119 17 100 Mechanical Ventilator 07/19/16 22:34 119 31 50 07/19/16 20:45 110 30 50 07/19/16 20:00 50 07/19/16 20:00 118 07/19/16 20:00 98.0 120 16 120/73 100 07/19/16 18:51 115 17 100 Mechanical Ventilator 07/19/16 18:51 115 17 100 Mechanical Ventilator 07/19/16 18:48 115 26 50 07/19/16 17:39 102 20 50 07/19/16 17:26 116 123/77 07/19/16 16:00 50 07/19/16 16:00 104 07/19/16 16:00 98.5 116 21 123/77 100 Mechanical Ventilator 50 07/19/16 15:50 112 22 100 Mechanical Ventilator 07/19/16 15:42 108 17 99 Mechanical Ventilator 07/19/16 15:32 111 16 50 07/19/16 13:18 105 20 50 07/19/16 12:00 101 07/19/16 12:00 50 07/19/16 12:00 98.6 99 16 101/73 100 Mechanical Ventilator 50 07/19/16 11:34 108 17 100 Mechanical Ventilator 07/19/16 11:30 98 101/74 07/19/16 11:27 104 20 99 Mechanical Ventilator 07/19/16 11:25 101 27 50 Height (Feet): 5 Height (Inches): 6.00 Weight (Pounds): 195 HEENT: status post trach Respiratory/Chest: lungs clear Cardiovascular: normal rate, regular rhythm, no gallop/murmur Abdomen: soft, non tender, other - GT Extremities: other - + edema bilaterally, left arm PICC Laboratory Tests Test 07/20/16 10:05 White Blood Count 24.0 K/UL (4.8-10.8) *H Red Blood Count 3.98 M/UL (4.20-5.40) L Hemoglobin 10.7 G/DL (12.0-16.0) L Hematocrit 34.6 % (37.0-47.0) L Mean Corpuscular Volume 87 FL (80-99) Mean Corpuscular Hemoglobin 26.9 PG (27.0-31.0) L Mean Corpuscular Hemoglobin Concent 30.9 G/DL (32.0-36.0) L Red Cell Distribution Width 16.9 % (11.6-14.8) H Platelet Count 336 K/UL (150-450) Mean Platelet Volume 7.0 FL (6.5-10.1) Neutrophils (%) (Auto) % (45.0-75.0) Lymphocytes (%) (Auto) % (20.0-45.0) Monocytes (%) (Auto) % (1.0-10.0) Eosinophils (%) (Auto) % (0.0-3.0) Basophils (%) (Auto) % (0.0-2.0) Neutrophils % (Manual) Pending Lymphocytes % (Manual) Pending Platelet Estimate Pending Platelet Morphology Pending Sodium Level Pending Potassium Level Pending Chloride Level Pending Carbon Dioxide Level Pending Blood Urea Nitrogen Pending Creatinine Pending Estimat Glomerular Filtration Rate Pending Glucose Level Pending Calcium Level Pending KIMBERLI HERMOSILLO Jul 20, 2016 11:18"
[2016-07-20 11:36] LABS: ANION GAP 16 (5-15); CARBON DIOXIDE 22 mEQ/L (20-30); CHLORIDE 98 mEQ/L (98-107); CREATININE 0.4 mg/dL (0.5-0.9); GLOMERULAR FILTRATION RATE > 60 mL/min (>60); HEMOLYSIS 14; POTASSIUM 3.7 mEQ/L (3.4-4.9); SODIUM 136 mEQ/L (135-145)
[2016-07-20 11:49] LABS: LYMPHOCYTES % (MANUAL) 4 % (20-45); NEUTROPHILS % (MANUAL) 95 % (45-75); TOTAL CELLS COUNTED 100
[2016-07-20 11:50] LABS: ANISOCYTOSIS 1+; BAND NEUTROPHILS % (MANUAL) 0 % (0-8); BASOPHILS % (MANUAL) 0 % (0-2); EOSINOPHILS % (MANUAL) 0 % (0-3); HYPOCHROMASIA 1+; PLATELET ESTIMATE ADEQUATE; PLATELET MORPHOLOGY NORMAL
--- NOTE | 2016-07-20 11:52 | Diagnostic Imaging Report ---
Indication: Abdominal pain Technique: Continuous helical transaxial imaging of the abdomen and pelvis was obtained from the lung bases to the pubic symphysis during intravenous contrast administration. Coronal 2-D reformats were also obtained. Study obtained in a Siemens sensation [address] Total Dose length Product (DLP): [address] Dose Index Volume (CTDIvol): 20 mGy Comparison: None Findings: There is posterior basilar consolidation and air bronchograms. Gastrostomy noted in good position. Gallbladder is absent. Aorta is mildly calcified. No adrenal mass appreciated. There is left hydronephrosis present terminating in a bulbous fluid-filled saclike structure within the bladder lumen. This finding is probably abrasives sales representative of a orthotopic ureterocele. A volume of the left kidney appears normal. There is no renal atrophy. Logan catheter is present in good position. There is moderate fecal retention demonstrated with distention of the rectum. Uterus is noted. Appendix is normal. No free fluid or free air identified. There is no evidence of bowel obstruction. Generalized subcutaneous edema demonstrated within the abdominal wall and pelvis consistent with anasarca. There is some prominence of the wall of the hepatic flexure probably on the basis of underdistention. Impression: Moderate left hydronephrosis. 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 No obstructing or nonobstructing stones identified. Moderate rectal fecal impaction. Anasarca Status post cholecystectomy Basilar consolidation. This appears chronic. Atherosclerotic vascular disease The CT scanner at [facility] is accredited by the [employer] and the scans are performed using protocols designed to limit radiation exposure to as low as reasonably achievable to attain images of sufficient resolution adequate for diagnostic evaluation.
[2016-07-20 12:00] VITALS: BP 97/59
[2016-07-20 12:05] LABS: MEAN CORPUSCULAR HEMOGLOBIN 26.9 PG (27.0-31.0); MEAN CORPUSCULAR HGB CONC 31.2 G/DL (32.0-36.0); MEAN CORPUSCULAR VOLUME 86 FL (80-99); MEAN PLATELET VOLUME 7.1 FL (6.5-10.1); PLATELET COUNT 314 K/UL (150-450); RED BLOOD COUNT 3.67 M/UL (4.20-5.40); RED CELL DISTRIBUTION WIDTH 17.2 % (11.6-14.8)
[2016-07-20 12:11] LABS: WHITE BLOOD COUNT 24.8 K/UL (4.8-10.8)
[2016-07-20 13:25] LABS: ANISOCYTOSIS 1+; BAND NEUTROPHILS % (MANUAL) 4 % (0-8); BASOPHILS % (MANUAL) 1 % (0-2); EOSINOPHILS % (MANUAL) 0 % (0-3); HYPOCHROMASIA 2+; LYMPHOCYTES % (MANUAL) 4 % (20-45); NEUTROPHILS % (MANUAL) 88 % (45-75); PLATELET ESTIMATE ADEQUATE; PLATELET MORPHOLOGY NORMAL; TOTAL CELLS COUNTED 100
[2016-07-20] MEDS: metroNIDAZOLE 500mg tab ORAL SCH ×2 (13:31→21:07)
[2016-07-20 16:00] VITALS: BP 94/57
--- NOTE | 2016-07-20 17:33 | General Progress Note ---
Assessment/Plan Assessment/Plan IMPRESSION: 1. Sepsis. 2. Respiratory failure. 3. Tracheostomy. 4. Metabolic acidosis. 5. Severe protein-calorie malnutrition. 6. Evidence of hypoxemia. 7. Leukocytosis. 8. Anemia of unclear etiology. 9. reduced K 10. MRSA bacteremia PLAN care noted IV antibiotics per ID WBC still very high monitor lytes GI follow up; on feeds still with elevated WBC; dc once improved ID follow up for dc planning once stable TOO care Subjective ROS Limited/Unobtainable: Yes Allergies: Coded Allergies: SULFA (SULFONAMIDE ANTIBIOTICS) (Verified Allergy, Intermediate, 02/07/16) Subjective remains ill poor LOC overall labs not improved Objective Last 24 Hour Vital Signs Date Time Temp Pulse Resp B/P Pulse Ox O2 Delivery O2 Flow Rate FiO2 07/20/16 17:08 112 21 50 07/20/16 16:58 102 94/57 07/20/16 16:00 100.4 104 20 94/57 100 Mechanical Ventilator 50 07/20/16 15:23 112 19 100 Mechanical Ventilator 07/20/16 15:18 109 19 50 07/20/16 15:18 109 19 99 Mechanical Ventilator 07/20/16 12:03 116 18 100 Mechanical Ventilator 07/20/16 12:00 106 07/20/16 12:00 97.9 111 25 97/59 99 Mechanical Ventilator 40 07/20/16 12:00 109 97/56 07/20/16 12:00 50 07/20/16 11:55 114 16 98 Mechanical Ventilator 07/20/16 10:48 113 22 50 07/20/16 09:01 112 21 50 07/20/16 08:04 114 19 100 Mechanical Ventilator 07/20/16 08:00 99.9 117 23 96/56 100 Mechanical Ventilator 50 07/20/16 08:00 50 07/20/16 08:00 114 07/20/16 07:57 116 18 98 Mechanical Ventilator 07/20/16 07:49 116 18 50 07/20/16 05:25 118 128/66 07/20/16 04:59 115 24 50 07/20/16 04:00 50 07/20/16 04:00 121 07/20/16 04:00 98.7 100 15 131/61 100 Nasal Cannula 07/20/16 02:51 125 17 100 Mechanical Ventilator 07/20/16 02:50 124 16 100 Mechanical Ventilator 07/20/16 02:47 122 26 50 07/20/16 01:05 124 24 50 07/20/16 00:00 128 07/20/16 00:00 50 07/20/16 00:00 99.0 125 16 134/62 99 Nasal Cannula 07/19/16 23:06 116 124/76 07/19/16 22:46 108 17 100 Mechanical Ventilator 07/19/16 22:35 119 17 100 Mechanical Ventilator 07/19/16 22:34 119 31 50 07/19/16 20:45 110 30 50 07/19/16 20:00 50 07/19/16 20:00 118 07/19/16 20:00 98.0 120 16 120/73 100 07/19/16 18:51 115 17 100 Mechanical Ventilator 07/19/16 18:51 115 17 100 Mechanical Ventilator 07/19/16 18:48 115 26 50 07/19/16 17:39 102 20 50 Intake and Output 07/19/16 07/20/16 19:00 07:00 Intake Total 807.5 ml 185 ml Output Total 325 ml 350 ml Balance 482.5 ml -165 ml Free Water 50 ml IV Total 357.5 ml Tube Feeding 390 ml 135 ml Other 60 ml Output Urine Total 325 ml 350 ml Laboratory Tests 07/20/16 10:05: White Blood Count 24.0*H, Red Blood Count 3.98L, Hemoglobin 10.7L, Hematocrit 34.6L, Mean Corpuscular Volume 87, Mean Corpuscular Hemoglobin 26.9L, Mean Corpuscular Hemoglobin Concent 30.9L, Red Cell Distribution Width 16.9H, Platelet Count 336, Mean Platelet Volume 7.0, Neutrophils (%) (Auto) , Lymphocytes (%) (Auto) , Monocytes (%) (Auto) , Eosinophils (%) (Auto) , Basophils (%) (Auto) , Differential Total Cells Counted 100, Neutrophils % ( Manual) 95H, Lymphocytes % (Manual) 4L, Monocytes % (Manual) 1, Eosinophils % ( Manual) 0, Basophils % (Manual) 0, Band Neutrophils 0, Platelet Estimate Adequate, Platelet Morphology Normal, Hypochromasia 1+, Anisocytosis 1+, Sodium Level 136, Potassium Level 3.7, Chloride Level 98, Carbon Dioxide Level 22, Anion Gap 16H, Blood Urea Nitrogen 10, Creatinine 0.4L, Estimat Glomerular Filtration Rate > 60, Glucose Level 123H, Calcium Level 8.0L 07/20/16 11:38: White Blood Count 24.8*H, Red Blood Count 3.67L, Hemoglobin 9.9L, Hematocrit 31.7L, Mean Corpuscular Volume 86, Mean Corpuscular Hemoglobin 26.9L, Mean Corpuscular Hemoglobin Concent 31.2L, Red Cell Distribution Width 17.2H, Platelet Count 314, Mean Platelet Volume 7.1, Neutrophils (%) (Auto) , Lymphocytes (%) (Auto) , Monocytes (%) (Auto) , Eosinophils (%) (Auto) , Basophils (%) (Auto) , Differential Total Cells Counted 100, Neutrophils % ( Manual) 88H, Lymphocytes % (Manual) 4L, Monocytes % (Manual) 3, Eosinophils % ( Manual) 0, Basophils % (Manual) 1, Band Neutrophils 4, Platelet Estimate Adequate, Platelet Morphology Normal, Hypochromasia 2+, Anisocytosis 1+ Height (Feet): 5 Height (Inches): 6.00 Weight (Pounds): 195 Objective GENERAL: The patient is ill appearing female, chronically ill, older than her stated age. HEENT: Tracheostomy is in midline. NECK: Supple. LUNGS: Coarse breath sounds. symmetric CARDIAC: S1 and S2. Tachycardia improved ABDOMEN: Soft. G-tube. EXTREMITIES: Significant contractures overall. MARIO ARIAS Jul 20, 2016 17:33
--- NOTE | 2016-07-20 19:01 | General Progress Note ---
Assessment/Plan Assessment/Plan Assessment - Gastritis - Anemia - Leukocytosis - Resp failure / trach - dysphagia / GT - TF intolerance - rectal stool impaction - hydro vs ureterocele Recommendations - Restart TF - Reglan trial - laxative trial - enema trial - monitor CBC - abx Subjective Allergies: Coded Allergies: SULFA (SULFONAMIDE ANTIBIOTICS) (Verified Allergy, Intermediate, 02/07/16) Subjective Seen earlier today was off of TF for CT rectal stool impaction noted Poth vs ureterocele noted Objective Last 24 Hour Vital Signs Date Time Temp Pulse Resp B/P Pulse Ox O2 Delivery O2 Flow Rate FiO2 07/20/16 18:38 114 23 50 07/20/16 17:08 112 21 50 07/20/16 16:58 102 94/57 07/20/16 16:00 50 07/20/16 16:00 121 07/20/16 16:00 100.4 104 20 94/57 100 Mechanical Ventilator 50 07/20/16 15:23 112 19 100 Mechanical Ventilator 07/20/16 15:18 109 19 50 07/20/16 15:18 109 19 99 Mechanical Ventilator 07/20/16 12:03 116 18 100 Mechanical Ventilator 07/20/16 12:00 106 07/20/16 12:00 97.9 111 25 97/59 99 Mechanical Ventilator 40 07/20/16 12:00 109 97/56 07/20/16 12:00 50 07/20/16 11:55 114 16 98 Mechanical Ventilator 07/20/16 10:48 113 22 50 07/20/16 09:01 112 21 50 07/20/16 08:04 114 19 100 Mechanical Ventilator 07/20/16 08:00 99.9 117 23 96/56 100 Mechanical Ventilator 50 07/20/16 08:00 50 07/20/16 08:00 114 07/20/16 07:57 116 18 98 Mechanical Ventilator 07/20/16 07:49 116 18 50 07/20/16 05:25 118 128/66 07/20/16 04:59 115 24 50 07/20/16 04:00 50 07/20/16 04:00 121 07/20/16 04:00 98.7 100 15 131/61 100 Nasal Cannula 07/20/16 02:51 125 17 100 Mechanical Ventilator 07/20/16 02:50 124 16 100 Mechanical Ventilator 07/20/16 02:47 122 26 50 07/20/16 01:05 124 24 50 07/20/16 00:00 128 07/20/16 00:00 50 07/20/16 00:00 99.0 125 16 134/62 99 Nasal Cannula 07/19/16 23:06 116 124/76 07/19/16 22:46 108 17 100 Mechanical Ventilator 07/19/16 22:35 119 17 100 Mechanical Ventilator 07/19/16 22:34 119 31 50 07/19/16 20:45 110 30 50 07/19/16 20:00 50 07/19/16 20:00 118 07/19/16 20:00 98.0 120 16 120/73 100 Intake and Output 07/19/16 07/20/16 19:00 07:00 Intake Total 807.5 ml 185 ml Output Total 325 ml 350 ml Balance 482.5 ml -165 ml Free Water 50 ml IV Total 357.5 ml Tube Feeding 390 ml 135 ml Other 60 ml Output Urine Total 325 ml 350 ml Laboratory Tests 07/20/16 10:05: White Blood Count 24.0*H, Red Blood Count 3.98L, Hemoglobin 10.7L, Hematocrit 34.6L, Mean Corpuscular Volume 87, Mean Corpuscular Hemoglobin 26.9L, Mean Corpuscular Hemoglobin Concent 30.9L, Red Cell Distribution Width 16.9H, Platelet Count 336, Mean Platelet Volume 7.0, Neutrophils (%) (Auto) , Lymphocytes (%) (Auto) , Monocytes (%) (Auto) , Eosinophils (%) (Auto) , Basophils (%) (Auto) , Differential Total Cells Counted 100, Neutrophils % ( Manual) 95H, Lymphocytes % (Manual) 4L, Monocytes % (Manual) 1, Eosinophils % ( Manual) 0, Basophils % (Manual) 0, Band Neutrophils 0, Platelet Estimate Adequate, Platelet Morphology Normal, Hypochromasia 1+, Anisocytosis 1+, Sodium Level 136, Potassium Level 3.7, Chloride Level 98, Carbon Dioxide Level 22, Anion Gap 16H, Blood Urea Nitrogen 10, Creatinine 0.4L, Estimat Glomerular Filtration Rate > 60, Glucose Level 123H, Calcium Level 8.0L 07/20/16 11:38: White Blood Count 24.8*H, Red Blood Count 3.67L, Hemoglobin 9.9L, Hematocrit 31.7L, Mean Corpuscular Volume 86, Mean Corpuscular Hemoglobin 26.9L, Mean Corpuscular Hemoglobin Concent 31.2L, Red Cell Distribution Width 17.2H, Platelet Count 314, Mean Platelet Volume 7.1, Neutrophils (%) (Auto) , Lymphocytes (%) (Auto) , Monocytes (%) (Auto) , Eosinophils (%) (Auto) , Basophils (%) (Auto) , Differential Total Cells Counted 100, Neutrophils % ( Manual) 88H, Lymphocytes % (Manual) 4L, Monocytes % (Manual) 3, Eosinophils % ( Manual) 0, Basophils % (Manual) 1, Band Neutrophils 4, Platelet Estimate Adequate, Platelet Morphology Normal, Hypochromasia 2+, Anisocytosis 1+ Height (Feet): 5 Height (Inches): 6.00 Weight (Pounds): 195 Objective debilitated AA woman NCAT (+) trach CTA RRR obese soft abd, (+) GT OBS LISA BALL Jul 20, 2016 19:01
[2016-07-20] MEDS ORDERED: Sorbitol Solution UD 30ml ORAL ONE (19:30)
[2016-07-20] MEDS ORDERED: Fleet's Enema 133ml RECTAL ONE (20:00)
[2016-07-20 20:38] VITALS: BP 105/62
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
[2016-07-21] VITALS: BP 118/56
[2016-07-21] MEDS: Albuterol ud Inhalation HHN SCH ×6 (02:49→22:59)
[2016-07-21] MEDS: Vancomycin 1 GM in D5W 275 ML IVPB SCH (04:30)
[2016-07-21] MEDS: Metoclopramide 10mg/2ml Inj IVP SCH ×3 (05:03→18:30)
[2016-07-21] MEDS: metroNIDAZOLE 500mg tab ORAL SCH ×3 (05:04→21:10)
[2016-07-21 08:00] VITALS: BP 124/73
--- NOTE | 2016-07-21 08:07 | General Progress Note ---
Assessment/Plan Assessment/Plan Assessment - persistent TF intolerance - Gastritis - Anemia, OB (+) - Leukocytosis - Resp failure / trach - dysphagia / GT - TF intolerance - rectal stool impaction - hydro vs ureterocele Recommendations - will discuss with family re EGD +/- G to J conversion - Reglan - monitor CBC - abx Subjective Allergies: Coded Allergies: SULFA (SULFONAMIDE ANTIBIOTICS) (Verified Allergy, Intermediate, 02/07/16) Subjective Seen earlier today still with residuals per RN message left with family re EGD and possible G--> J conversion Objective Last 24 Hour Vital Signs Date Time Temp Pulse Resp B/P Pulse Ox O2 Delivery O2 Flow Rate FiO2 07/21/16 05:04 119 118/72 07/21/16 04:43 115 24 50 07/21/16 04:00 50 07/21/16 04:00 112 07/21/16 03:13 117 07/21/16 03:13 117 07/21/16 02:48 116 26 50 07/21/16 01:09 117 24 50 07/21/16 00:00 50 07/21/16 00:00 98.2 125 25 118/56 98 Mechanical Ventilator 40 07/21/16 00:00 122 07/20/16 23:35 128 116/74 07/20/16 23:23 114 07/20/16 23:22 114 16 100 Mechanical Ventilator 35 07/20/16 22:47 115 25 50 07/20/16 20:43 116 20 50 07/20/16 20:38 98.4 113 24 105/62 100 Mechanical Ventilator 40 07/20/16 20:00 113 07/20/16 20:00 50 07/20/16 19:19 114 07/20/16 19:18 115 07/20/16 18:38 114 23 50 07/20/16 17:08 112 21 50 07/20/16 16:58 102 94/57 07/20/16 16:00 50 07/20/16 16:00 121 07/20/16 16:00 100.4 104 20 94/57 100 Mechanical Ventilator 50 07/20/16 15:23 112 19 100 Mechanical Ventilator 07/20/16 15:18 109 19 50 07/20/16 15:18 109 19 99 Mechanical Ventilator 07/20/16 12:03 116 18 100 Mechanical Ventilator 07/20/16 12:00 106 07/20/16 12:00 97.9 111 25 97/59 99 Mechanical Ventilator 40 07/20/16 12:00 109 97/56 07/20/16 12:00 50 07/20/16 11:55 114 16 98 Mechanical Ventilator 07/20/16 10:48 113 22 50 07/20/16 09:01 112 21 50 07/20/16 08:04 114 19 100 Mechanical Ventilator Intake and Output 07/20/16 07/21/16 19:00 07:00 Intake Total 45 ml 315 ml Output Total 250 ml Balance -205 ml 315 ml Tube Feeding 45 ml 315 ml Output Urine Total 250 ml Laboratory Tests 07/20/16 10:05: White Blood Count 24.0*H, Red Blood Count 3.98L, Hemoglobin 10.7L, Hematocrit 34.6L, Mean Corpuscular Volume 87, Mean Corpuscular Hemoglobin 26.9L, Mean Corpuscular Hemoglobin Concent 30.9L, Red Cell Distribution Width 16.9H, Platelet Count 336, Mean Platelet Volume 7.0, Neutrophils (%) (Auto) , Lymphocytes (%) (Auto) , Monocytes (%) (Auto) , Eosinophils (%) (Auto) , Basophils (%) (Auto) , Differential Total Cells Counted 100, Neutrophils % ( Manual) 95H, Lymphocytes % (Manual) 4L, Monocytes % (Manual) 1, Eosinophils % ( Manual) 0, Basophils % (Manual) 0, Band Neutrophils 0, Platelet Estimate Adequate, Platelet Morphology Normal, Hypochromasia 1+, Anisocytosis 1+, Sodium Level 136, Potassium Level 3.7, Chloride Level 98, Carbon Dioxide Level 22, Anion Gap 16H, Blood Urea Nitrogen 10, Creatinine 0.4L, Estimat Glomerular Filtration Rate > 60, Glucose Level 123H, Calcium Level 8.0L 07/20/16 11:38: White Blood Count 24.8*H, Red Blood Count 3.67L, Hemoglobin 9.9L, Hematocrit 31.7L, Mean Corpuscular Volume 86, Mean Corpuscular Hemoglobin 26.9L, Mean Corpuscular Hemoglobin Concent 31.2L, Red Cell Distribution Width 17.2H, Platelet Count 314, Mean Platelet Volume 7.1, Neutrophils (%) (Auto) , Lymphocytes (%) (Auto) , Monocytes (%) (Auto) , Eosinophils (%) (Auto) , Basophils (%) (Auto) , Differential Total Cells Counted 100, Neutrophils % ( Manual) 88H, Lymphocytes % (Manual) 4L, Monocytes % (Manual) 3, Eosinophils % ( Manual) 0, Basophils % (Manual) 1, Band Neutrophils 4, Platelet Estimate Adequate, Platelet Morphology Normal, Hypochromasia 2+, Anisocytosis 1+ 07/21/16 04:29: Vancomycin Level Trough 50.7H Height (Feet): 5 Height (Inches): 6.00 Weight (Pounds): 195 Objective debilitated AA woman NCAT (+) trach CTA RRR obese soft abd, (+) GT OBS LISA BALL Jul 21, 2016 08:07
[2016-07-21] MEDS: Ascorbic Acid 500mg tab GT SCH (09:32)
[2016-07-21] MEDS: Milk of Magnesia 30ml Ud GT SCH (09:32)
[2016-07-21] MEDS: Zinc Sulfate 220mg cap GT SCH (09:32)
[2016-07-21] MEDS: Aspirin Baby 81mg GT SCH (09:32)
[2016-07-21] MEDS: Cefepime HCl 1 GM in D5W 55 ML IVPB SCH ×2 (09:33→20:55)
--- NOTE | 2016-07-21 11:16 | Infectious Diseases Prog Note ---
"Assessment/Plan Assessment/Plan antibiotics : vancomycin iv, cefepime, flagyl A 1. MRSA sepsis 2. acenitobacter | providencia pneumonia 3. respiratory failure 4. leucocytosis increasing 5. encephalopathy P 1. continue vancomycin iv, cefepime, flagyl 2. will follow up cultures Subjective ROS Limited/Unobtainable: Yes Allergies: Coded Allergies: SULFA (SULFONAMIDE ANTIBIOTICS) (Verified Allergy, Intermediate, 02/07/16) Objective Vital Signs Last 24 Hour Vital Signs Date Time Temp Pulse Resp B/P Pulse Ox O2 Delivery O2 Flow Rate FiO2 07/21/16 09:25 115 28 50 07/21/16 08:00 97.9 113 17 124/73 100 Mechanical Ventilator 40 07/21/16 08:00 50 07/21/16 08:00 116 07/21/16 07:21 114 21 100 Mechanical Ventilator 07/21/16 07:11 114 21 100 Mechanical Ventilator 35 07/21/16 07:11 114 21 50 07/21/16 05:04 119 118/72 07/21/16 04:43 115 24 50 07/21/16 04:00 50 07/21/16 04:00 112 07/21/16 03:13 117 07/21/16 03:13 117 07/21/16 02:48 116 26 50 07/21/16 01:09 117 24 50 07/21/16 00:00 50 07/21/16 00:00 98.2 125 25 118/56 98 Mechanical Ventilator 40 07/21/16 00:00 122 07/20/16 23:35 128 116/74 07/20/16 23:23 114 07/20/16 23:22 114 16 100 Mechanical Ventilator 35 07/20/16 22:47 115 25 50 07/20/16 20:43 116 20 50 07/20/16 20:38 98.4 113 24 105/62 100 Mechanical Ventilator 40 07/20/16 20:00 113 07/20/16 20:00 50 07/20/16 19:19 114 07/20/16 19:18 115 07/20/16 18:38 114 23 50 07/20/16 17:08 112 21 50 07/20/16 16:58 102 94/57 07/20/16 16:00 50 07/20/16 16:00 121 07/20/16 16:00 100.4 104 20 94/57 100 Mechanical Ventilator 50 07/20/16 15:23 112 19 100 Mechanical Ventilator 07/20/16 15:18 109 19 50 07/20/16 15:18 109 19 99 Mechanical Ventilator 07/20/16 12:03 116 18 100 Mechanical Ventilator 07/20/16 12:00 106 07/20/16 12:00 97.9 111 25 97/59 99 Mechanical Ventilator 40 07/20/16 12:00 109 97/56 07/20/16 12:00 50 07/20/16 11:55 114 16 98 Mechanical Ventilator Height (Feet): 5 Height (Inches): 6.00 Weight (Pounds): 195 HEENT: status post trach Respiratory/Chest: lungs clear Cardiovascular: normal rate, regular rhythm, no gallop/murmur Abdomen: soft, non tender, other - GT Extremities: other - + edema, left arm PICC Laboratory Tests Test 07/20/16 11:38 07/21/16 04:29 White Blood Count 24.8 K/UL (4.8-10.8) *H Red Blood Count 3.67 M/UL (4.20-5.40) L Hemoglobin 9.9 G/DL (12.0-16.0) L Hematocrit 31.7 % (37.0-47.0) L Mean Corpuscular Volume 86 FL (80-99) Mean Corpuscular Hemoglobin 26.9 PG (27.0-31.0) L Mean Corpuscular Hemoglobin Concent 31.2 G/DL (32.0-36.0) L Red Cell Distribution Width 17.2 % (11.6-14.8) H Platelet Count 314 K/UL (150-450) Mean Platelet Volume 7.1 FL (6.5-10.1) Neutrophils (%) (Auto) % (45.0-75.0) Lymphocytes (%) (Auto) % (20.0-45.0) Monocytes (%) (Auto) % (1.0-10.0) Eosinophils (%) (Auto) % (0.0-3.0) Basophils (%) (Auto) % (0.0-2.0) Differential Total Cells Counted 100 Neutrophils % (Manual) 88 % (45-75) H Lymphocytes % (Manual) 4 % (20-45) L Monocytes % (Manual) 3 % (1-10) Eosinophils % (Manual) 0 % (0-3) Basophils % (Manual) 1 % (0-2) Band Neutrophils 4 % (0-8) Platelet Estimate Adequate Platelet Morphology Normal Hypochromasia 2+ Anisocytosis 1+ Vancomycin Level Trough 50.7 ug/mL (5.0-12.0) H KIMBERLI HERMOSILLO Jul 21, 2016 11:16"
[2016-07-21 12:00] VITALS: BP 117/79
[2016-07-21] MEDS ORDERED: NS 275ml ONE (14:51)
[2016-07-21 16:00] VITALS: BP 102/58
--- NOTE | 2016-07-21 16:34 | General Progress Note ---
Assessment/Plan Assessment/Plan IMPRESSION: 1. Sepsis. 2. Respiratory failure. 3. Tracheostomy. 4. Metabolic acidosis. 5. Severe protein-calorie malnutrition. 6. Evidence of hypoxemia. 7. Leukocytosis. 8. Anemia of unclear etiology. 9. reduced K 10. MRSA bacteremia 11. tachycardia PLAN care noted IV antibiotics per ID WBC still very high monitor lytes GI follow up; on feeds still with elevated WBC; dc once improved follow up labs rate control ID follow up for dc planning once stable TOO care Subjective ROS Limited/Unobtainable: Yes Allergies: Coded Allergies: SULFA (SULFONAMIDE ANTIBIOTICS) (Verified Allergy, Intermediate, 02/07/16) Subjective remains ill poor LOC overall labs not improved tachycardic Objective Last 24 Hour Vital Signs Date Time Temp Pulse Resp B/P Pulse Ox O2 Delivery O2 Flow Rate FiO2 07/21/16 16:00 40 07/21/16 15:00 115 26 100 Mechanical Ventilator 07/21/16 14:50 115 26 100 Mechanical Ventilator 35 07/21/16 14:50 116 26 50 07/21/16 13:28 119 23 50 07/21/16 13:10 125 117/79 07/21/16 12:00 121 07/21/16 12:00 98.1 119 17 117/79 100 Mechanical Ventilator 40 07/21/16 12:00 50 07/21/16 11:20 114 23 100 Mechanical Ventilator 07/21/16 11:10 114 23 100 Mechanical Ventilator 35 07/21/16 11:10 114 23 50 07/21/16 09:25 115 28 50 07/21/16 08:00 97.9 113 17 124/73 100 Mechanical Ventilator 40 07/21/16 08:00 50 07/21/16 08:00 116 07/21/16 07:21 114 21 100 Mechanical Ventilator 07/21/16 07:11 114 21 100 Mechanical Ventilator 35 07/21/16 07:11 114 21 50 07/21/16 05:04 119 118/72 07/21/16 04:43 115 24 50 07/21/16 04:00 50 07/21/16 04:00 112 07/21/16 03:13 117 07/21/16 03:13 117 07/21/16 02:48 116 26 50 07/21/16 01:09 117 24 50 07/21/16 00:00 50 07/21/16 00:00 98.2 125 25 118/56 98 Mechanical Ventilator 40 07/21/16 00:00 122 07/20/16 23:35 128 116/74 07/20/16 23:23 114 07/20/16 23:22 114 16 100 Mechanical Ventilator 35 07/20/16 22:47 115 25 50 07/20/16 20:43 116 20 50 07/20/16 20:38 98.4 113 24 105/62 100 Mechanical Ventilator 40 07/20/16 20:00 113 07/20/16 20:00 50 07/20/16 19:19 114 07/20/16 19:18 115 07/20/16 18:38 114 23 50 07/20/16 17:08 112 21 50 07/20/16 16:58 102 94/57 Intake and Output 07/20/16 07/21/16 19:00 07:00 Intake Total 45 ml 315 ml Output Total 250 ml Balance -205 ml 315 ml Tube Feeding 45 ml 315 ml Output Urine Total 250 ml Laboratory Tests 07/21/16 04:29: Vancomycin Level Trough 50.7H 07/21/16 15:10: Vancomycin Level Trough [Pending] Height (Feet): 5 Height (Inches): 6.00 Weight (Pounds): 195 Objective GENERAL: The patient is ill appearing female, chronically ill, older than her stated age. HEENT: Tracheostomy is in midline. NECK: Supple. LUNGS: Coarse breath sounds. symmetric CARDIAC: S1 and S2. Tachycardia recurrent ABDOMEN: Soft. G-tube. EXTREMITIES: Significant contractures overall. MARIO ARIAS Jul 21, 2016 16:34
[2016-07-21 20:00] VITALS: BP 108/77
[2016-07-22] VITALS: BP 110/52
[2016-07-22] MEDS: Metoclopramide 10mg/2ml Inj IVP SCH ×5 (00:23→23:49)
[2016-07-22] MEDS: Albuterol ud Inhalation HHN SCH ×5 (02:46→19:07)
[2016-07-22 04:00] VITALS: BP 121/66
[2016-07-22 05:27] LABS: MEAN CORPUSCULAR HEMOGLOBIN 27.4 PG (27.0-31.0); MEAN CORPUSCULAR VOLUME 86 FL (80-99); MEAN PLATELET VOLUME 7.6 FL (6.5-10.1); PLATELET COUNT 320 K/UL (150-450); RED BLOOD COUNT 3.51 M/UL (4.20-5.40); RED CELL DISTRIBUTION WIDTH 17.2 % (11.6-14.8); WHITE BLOOD COUNT 16.7 K/UL (4.8-10.8)
[2016-07-22 06:01] LABS: ANION GAP 18 (5-15); CALCIUM 7.7 mg/dL (8.6-10.2); CARBON DIOXIDE 20 mEQ/L (20-30); CHLORIDE 100 mEQ/L (98-107); CREATININE 0.9 mg/dL (0.5-0.9); GLOMERULAR FILTRATION RATE > 60 mL/min (>60); HEMOLYSIS 2; POTASSIUM 3.3 mEQ/L (3.4-4.9); SODIUM 138 mEQ/L (135-145)
[2016-07-22] MEDS: metroNIDAZOLE 500mg tab ORAL SCH ×3 (06:07→21:07)
[2016-07-22 08:00] VITALS: BP 107/54
[2016-07-22] MEDS: Milk of Magnesia 30ml Ud GT SCH (08:19)
[2016-07-22] MEDS: Cefepime HCl 1 GM in D5W 55 ML IVPB SCH ×2 (08:38→20:59)
[2016-07-22] MEDS: Aspirin Baby 81mg GT SCH (08:38)
[2016-07-22] MEDS: Zinc Sulfate 220mg cap GT SCH (08:38)
[2016-07-22] MEDS: Ascorbic Acid 500mg tab GT SCH (08:38)
--- NOTE | 2016-07-22 08:46 | Infectious Diseases Prog Note ---
Assessment/Plan Assessment/Plan A: MRSA sepsis Infected pressure ulcer pneumonia with Acinetobacter & Providencia VDRF Encephalopathy Left hydronephrosis Fecal impaction P; Continue Vancomycin , Cefepime & Flagyl Subjective ROS Limited/Unobtainable: Yes Constitutional: Reports: fever, other - T lex=937.4 Allergies: Coded Allergies: SULFA (SULFONAMIDE ANTIBIOTICS) (Verified Allergy, Intermediate, 02/07/16) Objective Vital Signs Last 24 Hour Vital Signs Date Time Temp Pulse Resp B/P Pulse Ox O2 Delivery O2 Flow Rate FiO2 07/22/16 08:00 108 07/22/16 08:00 40 07/22/16 06:07 104 121/66 07/22/16 04:40 116 17 50 07/22/16 04:00 97.4 104 22 121/66 100 Mechanical Ventilator 40 07/22/16 04:00 114 07/22/16 04:00 40 07/22/16 03:10 114 24 100 Mechanical Ventilator 07/22/16 02:46 113 26 100 Mechanical Ventilator 35 07/22/16 02:45 114 27 50 07/22/16 00:54 113 18 50 07/22/16 00:23 110 110/52 07/22/16 00:00 40 07/22/16 00:00 108 07/22/16 00:00 97.7 110 16 110/52 100 Mechanical Ventilator 40 07/21/16 23:13 114 24 100 Mechanical Ventilator 07/21/16 22:59 111 25 100 Mechanical Ventilator 35 07/21/16 22:58 111 25 50 07/21/16 20:57 114 19 50 07/21/16 20:00 118 07/21/16 20:00 98.2 112 17 108/77 100 Mechanical Ventilator 40 07/21/16 20:00 40 07/21/16 19:30 113 24 100 Mechanical Ventilator 07/21/16 19:14 110 26 100 Mechanical Ventilator 35 07/21/16 19:13 110 27 50 07/21/16 18:30 114 102/58 07/21/16 16:50 114 20 50 07/21/16 16:00 40 07/21/16 16:00 98.2 118 16 102/58 100 Mechanical Ventilator 40 07/21/16 16:00 114 07/21/16 15:00 115 26 100 Mechanical Ventilator 07/21/16 14:50 115 26 100 Mechanical Ventilator 35 07/21/16 14:50 116 26 50 07/21/16 13:28 119 23 50 07/21/16 13:10 125 117/79 07/21/16 12:00 121 07/21/16 12:00 98.1 119 17 117/79 100 Mechanical Ventilator 40 07/21/16 12:00 50 07/21/16 11:20 114 23 100 Mechanical Ventilator 07/21/16 11:10 114 23 100 Mechanical Ventilator 35 07/21/16 11:10 114 23 50 07/21/16 09:25 115 28 50 Height (Feet): 5 Height (Inches): 6.00 Weight (Pounds): 195 General Appearance: no acute distress HEENT: status post trach Respiratory/Chest: rhonchi - bilaterally, other - on ventilator Cardiovascular: tachycardia Abdomen: soft, non tender, other - GT feeding Extremities: other - left arm PICC line , mild edema Neurologic/Psychiatric: other - awake Laboratory Tests Test 07/21/16 15:10 07/22/16 04:15 Vancomycin Level Trough 60.3 ug/mL (5.0-12.0) H White Blood Count 16.7 K/UL (4.8-10.8) H Red Blood Count 3.51 M/UL (4.20-5.40) L Hemoglobin 9.6 G/DL (12.0-16.0) L Hematocrit 30.1 % (37.0-47.0) L Mean Corpuscular Volume 86 FL (80-99) Mean Corpuscular Hemoglobin 27.4 PG (27.0-31.0) Mean Corpuscular Hemoglobin Concent 32.0 G/DL (32.0-36.0) Red Cell Distribution Width 17.2 % (11.6-14.8) H Platelet Count 320 K/UL (150-450) Mean Platelet Volume 7.6 FL (6.5-10.1) Neutrophils (%) (Auto) % (45.0-75.0) Lymphocytes (%) (Auto) % (20.0-45.0) Monocytes (%) (Auto) % (1.0-10.0) Eosinophils (%) (Auto) % (0.0-3.0) Basophils (%) (Auto) % (0.0-2.0) Neutrophils % (Manual) Pending Lymphocytes % (Manual) Pending Platelet Estimate Pending Platelet Morphology Pending Sodium Level 138 mEQ/L (135-145) Potassium Level 3.3 mEQ/L (3.4-4.9) L Chloride Level 100 mEQ/L (98-107) Carbon Dioxide Level 20 mEQ/L (20-30) Anion Gap 18 (5-15) H Blood Urea Nitrogen 18 mg/dL (7-23) Creatinine 0.9 mg/dL (0.5-0.9) Estimat Glomerular Filtration Rate > 60 mL/min (>60) Glucose Level 113 mg/dL (74-106) H Calcium Level 7.7 mg/dL (8.6-10.2) L Current Medications Medications (Trade) Dose Ordered Sig/Daljit Route PRN Reason Start Time Stop Time Status Last Admin Dose Admin Albuterol Sulfate (Proventil) 2.5 mg Q4HRT HHN 07/17/16 23:00 07/22/16 22:59 07/22/16 02:46 Ascorbic Acid (Vitamin C) 500 mg DAILY GT 07/18/16 09:00 08/17/16 08:59 07/22/16 08:38 Aspirin (ASA) 81 mg DAILY GT 07/18/16 09:00 08/17/16 08:59 07/22/16 08:38 Atorvastatin Calcium (Lipitor) 10 mg BEDTIME GT 07/17/16 21:00 08/16/16 20:59 07/21/16 20:55 Cefepime HCl/ Dextrose (Maxipime/D5W) 55 ml @ 110 mls/hr EVERY 12 HOURS IVPB 07/19/16 21:00 07/26/16 20:59 07/22/16 08:38 Diltiazem HCl (Cardizem) 60 mg Q6HR GT 07/18/16 00:00 08/17/16 00:00 07/22/16 06:07 Lansoprazole 30 mg 30 mg DAILY GT 07/18/16 09:00 08/17/16 08:59 07/22/16 08:38 Magnesium Hydroxide (Mom) 30 ml DAILY GT 07/18/16 09:00 08/17/16 08:59 07/21/16 09:32 Metoclopramide HCl (Reglan) 5 mg Q6HR IVP 07/18/16 00:00 08/17/16 00:00 07/22/16 06:07 Metronidazole (Flagyl) 500 mg EVERY 8 HOURS ORAL 07/20/16 14:00 07/27/16 13:59 07/22/16 06:07 Tramadol HCl (Ultram) 50 mg Q6H PRN GT For Pain 07/17/16 19:30 07/24/16 19:29 07/20/16 09:48 Vancomycin HCl (Vanco rx to dose) 1 ea DAILY PRN MISC Per rx protocol 07/17/16 19:30 08/16/16 19:29 Zinc Sulfate (Zinc Sulfate) 220 mg DAILY GT 07/18/16 09:00 08/17/16 08:59 07/22/16 08:38 KAIDEN MOHAN Jul 22, 2016 08:46
[2016-07-22] MEDS ORDERED: Sterile Water Irrig 1000ml IRRIG ONE (09:52)
[2016-07-22] MEDS ORDERED: Tubing IV Secondary IV ONE (09:52)
[2016-07-22] MEDS ORDERED: NS 275ml ONE (09:52)
[2016-07-22 10:18] LABS: ANISOCYTOSIS 1+; BAND NEUTROPHILS % (MANUAL) 0 % (0-8); BASOPHILS % (MANUAL) 0 % (0-2); EOSINOPHILS % (MANUAL) 1 % (0-3); HYPOCHROMASIA 2+; LYMPHOCYTES % (MANUAL) 3 % (20-45); NEUTROPHILS % (MANUAL) 95 % (45-75); PLATELET ESTIMATE ADEQUATE; PLATELET MORPHOLOGY NORMAL; TOTAL CELLS COUNTED 100
[2016-07-22 12:00] VITALS: BP 96/55
--- NOTE | 2016-07-22 14:22 | General Progress Note ---
Assessment/Plan Assessment/Plan Assessment - persistent TF intolerance - Gastritis - Anemia, OB (+) - Leukocytosis - Resp failure / trach - dysphagia / GT - TF intolerance - rectal stool impaction - hydro vs ureterocele Recommendations - discussed with family re EGD +/- G to J conversion - Reglan - monitor CBC - abx - EGD in am Subjective Allergies: Coded Allergies: SULFA (SULFONAMIDE ANTIBIOTICS) (Verified Allergy, Intermediate, 02/07/16) Subjective Seen earlier today still with residuals per RN d/w family re EGD and possible G to J conversion Objective Last 24 Hour Vital Signs Date Time Temp Pulse Resp B/P Pulse Ox O2 Delivery O2 Flow Rate FiO2 07/22/16 13:42 102 107/54 07/22/16 11:46 102 07/22/16 11:46 40 07/22/16 09:06 102 18 40 07/22/16 08:00 108 07/22/16 08:00 40 07/22/16 08:00 97.5 102 22 107/54 100 Mechanical Ventilator 40 07/22/16 06:38 106 18 100 Mechanical Ventilator 07/22/16 06:30 109 25 100 Mechanical Ventilator 40 07/22/16 06:30 108 25 40 07/22/16 06:07 104 121/66 07/22/16 04:40 116 17 50 07/22/16 04:00 97.4 104 22 121/66 100 Mechanical Ventilator 40 07/22/16 04:00 114 07/22/16 04:00 40 07/22/16 03:10 114 24 100 Mechanical Ventilator 07/22/16 02:46 113 26 100 Mechanical Ventilator 35 07/22/16 02:45 114 27 50 07/22/16 00:54 113 18 50 07/22/16 00:23 110 110/52 07/22/16 00:00 40 07/22/16 00:00 108 07/22/16 00:00 97.7 110 16 110/52 100 Mechanical Ventilator 40 07/21/16 23:13 114 24 100 Mechanical Ventilator 07/21/16 22:59 111 25 100 Mechanical Ventilator 35 07/21/16 22:58 111 25 50 07/21/16 20:57 114 19 50 07/21/16 20:00 118 07/21/16 20:00 98.2 112 17 108/77 100 Mechanical Ventilator 40 07/21/16 20:00 40 07/21/16 19:30 113 24 100 Mechanical Ventilator 07/21/16 19:14 110 26 100 Mechanical Ventilator 35 07/21/16 19:13 110 27 50 07/21/16 18:30 114 102/58 07/21/16 16:50 114 20 50 07/21/16 16:00 40 07/21/16 16:00 98.2 118 16 102/58 100 Mechanical Ventilator 40 07/21/16 16:00 114 07/21/16 15:00 115 26 100 Mechanical Ventilator 07/21/16 14:50 115 26 100 Mechanical Ventilator 35 07/21/16 14:50 116 26 50 Intake and Output 07/21/16 07/22/16 19:00 07:00 Intake Total 410 ml 500 ml Output Total 450 ml 300 ml Balance -40 ml 200 ml IV Total 110 ml 110 ml Tube Feeding 210 ml 360 ml Other 90 ml 30 ml Output Urine Total 450 ml 300 ml # Bowel Movements 2 1 Laboratory Tests 07/21/16 15:10: Vancomycin Level Trough 60.3H 07/22/16 04:15: White Blood Count 16.7H, Red Blood Count 3.51L, Hemoglobin 9.6L, Hematocrit 30.1L, Mean Corpuscular Volume 86, Mean Corpuscular Hemoglobin 27.4, Mean Corpuscular Hemoglobin Concent 32.0, Red Cell Distribution Width 17.2H, Platelet Count 320, Mean Platelet Volume 7.6, Neutrophils (%) (Auto) , Lymphocytes (%) (Auto) , Monocytes (%) (Auto) , Eosinophils (%) (Auto) , Basophils (%) (Auto) , Differential Total Cells Counted 100, Neutrophils % ( Manual) 95H, Lymphocytes % (Manual) 3L, Monocytes % (Manual) 1, Eosinophils % ( Manual) 1, Basophils % (Manual) 0, Band Neutrophils 0, Platelet Estimate Adequate, Platelet Morphology Normal, Hypochromasia 2+, Anisocytosis 1+, Sodium Level 138, Potassium Level 3.3L, Chloride Level 100, Carbon Dioxide Level 20, Anion Gap 18H, Blood Urea Nitrogen 18, Creatinine 0.9, Estimat Glomerular Filtration Rate > 60, Glucose Level 113H, Calcium Level 7.7L Height (Feet): 5 Height (Inches): 6.00 Weight (Pounds): 195 Objective debilitated AA woman NCAT (+) trach CTA RRR obese soft abd, (+) GT OBS LISA BALL Jul 22, 2016 14:22
[2016-07-22 16:00] VITALS: BP 98/64
--- NOTE | 2016-07-22 18:16 | General Progress Note ---
Assessment/Plan Assessment/Plan IMPRESSION: 1. Sepsis. 2. Respiratory failure. 3. Tracheostomy. 4. Metabolic acidosis. 5. Severe protein-calorie malnutrition. 6. Evidence of hypoxemia. 7. Leukocytosis. 8. Anemia of unclear etiology. 9. reduced K 10. MRSA bacteremia 11. tachycardia PLAN care noted IV antibiotics per ID WBC better monitor lytes; replace KCL GI follow up; on feeds follow up labs rate control ID follow up for dc planning once stable on triple antibiotics TOO care Subjective ROS Limited/Unobtainable: Yes Allergies: Coded Allergies: SULFA (SULFONAMIDE ANTIBIOTICS) (Verified Allergy, Intermediate, 02/07/16) Subjective remains ill poor LOC overall labs better tachycardia better Objective Last 24 Hour Vital Signs Date Time Temp Pulse Resp B/P Pulse Ox O2 Delivery O2 Flow Rate FiO2 07/22/16 18:07 111 107/54 07/22/16 17:08 111 20 35 07/22/16 15:55 40 07/22/16 15:20 100 27 100 Mechanical Ventilator 07/22/16 15:16 100 27 35 07/22/16 15:12 99 25 100 Mechanical Ventilator 35 07/22/16 13:42 102 107/54 07/22/16 12:36 100 25 35 07/22/16 12:00 96.8 97 20 96/55 100 Mechanical Ventilator 40 07/22/16 11:46 102 07/22/16 11:46 40 07/22/16 11:12 97 18 100 Mechanical Ventilator 07/22/16 10:34 100 20 40 07/22/16 10:34 100 25 100 Mechanical Ventilator 40 07/22/16 09:06 102 18 40 07/22/16 08:00 108 07/22/16 08:00 40 07/22/16 08:00 97.5 102 22 107/54 100 Mechanical Ventilator 40 07/22/16 06:38 106 18 100 Mechanical Ventilator 07/22/16 06:30 109 25 100 Mechanical Ventilator 40 07/22/16 06:30 108 25 40 07/22/16 06:07 104 121/66 07/22/16 04:40 116 17 50 07/22/16 04:00 97.4 104 22 121/66 100 Mechanical Ventilator 40 07/22/16 04:00 114 07/22/16 04:00 40 07/22/16 03:10 114 24 100 Mechanical Ventilator 07/22/16 02:46 113 26 100 Mechanical Ventilator 35 07/22/16 02:45 114 27 50 07/22/16 00:54 113 18 50 07/22/16 00:23 110 110/52 07/22/16 00:00 40 07/22/16 00:00 108 07/22/16 00:00 97.7 110 16 110/52 100 Mechanical Ventilator 40 07/21/16 23:13 114 24 100 Mechanical Ventilator 07/21/16 22:59 111 25 100 Mechanical Ventilator 35 07/21/16 22:58 111 25 50 07/21/16 20:57 114 19 50 07/21/16 20:00 118 07/21/16 20:00 98.2 112 17 108/77 100 Mechanical Ventilator 40 07/21/16 20:00 40 07/21/16 19:30 113 24 100 Mechanical Ventilator 07/21/16 19:14 110 26 100 Mechanical Ventilator 35 07/21/16 19:13 110 27 50 07/21/16 18:30 114 102/58 Intake and Output 07/21/16 07/22/16 19:00 07:00 Intake Total 410 ml 500 ml Output Total 450 ml 300 ml Balance -40 ml 200 ml IV Total 110 ml 110 ml Tube Feeding 210 ml 360 ml Other 90 ml 30 ml Output Urine Total 450 ml 300 ml # Bowel Movements 2 1 Laboratory Tests 07/22/16 04:15: White Blood Count 16.7H, Red Blood Count 3.51L, Hemoglobin 9.6L, Hematocrit 30.1L, Mean Corpuscular Volume 86, Mean Corpuscular Hemoglobin 27.4, Mean Corpuscular Hemoglobin Concent 32.0, Red Cell Distribution Width 17.2H, Platelet Count 320, Mean Platelet Volume 7.6, Neutrophils (%) (Auto) , Lymphocytes (%) (Auto) , Monocytes (%) (Auto) , Eosinophils (%) (Auto) , Basophils (%) (Auto) , Differential Total Cells Counted 100, Neutrophils % ( Manual) 95H, Lymphocytes % (Manual) 3L, Monocytes % (Manual) 1, Eosinophils % ( Manual) 1, Basophils % (Manual) 0, Band Neutrophils 0, Platelet Estimate Adequate, Platelet Morphology Normal, Hypochromasia 2+, Anisocytosis 1+, Sodium Level 138, Potassium Level 3.3L, Chloride Level 100, Carbon Dioxide Level 20, Anion Gap 18H, Blood Urea Nitrogen 18, Creatinine 0.9, Estimat Glomerular Filtration Rate > 60, Glucose Level 113H, Calcium Level 7.7L Height (Feet): 5 Height (Inches): 6.00 Weight (Pounds): 195 Objective GENERAL: The patient is ill appearing female, chronically ill, older than her stated age. HEENT: Tracheostomy is in midline. NECK: Supple. LUNGS: Coarse breath sounds. symmetric CARDIAC: S1 and S2. Tachycardia recurrent ABDOMEN: Soft. G-tube. EXTREMITIES: Significant contractures overall. MARIO ARIAS Jul 22, 2016 18:16
[2016-07-22 20:00] VITALS: BP 96/55
[2016-07-23] VITALS: BP 98/51
[2016-07-23] MEDS: traMADol 50mg tab GT PRN (00:32)
[2016-07-23 04:00] VITALS: BP 96/55
[2016-07-23] MEDS: Metoclopramide 10mg/2ml Inj IVP SCH ×3 (05:28→17:53)
[2016-07-23] MEDS: metroNIDAZOLE 500mg tab ORAL SCH ×3 (05:28→21:19)
[2016-07-23 08:00] VITALS: BP 100/53
[2016-07-23] MEDS: Zinc Sulfate 220mg cap GT SCH (09:00)
[2016-07-23] MEDS: Milk of Magnesia 30ml Ud GT SCH (09:00)
[2016-07-23] MEDS: Aspirin Baby 81mg GT SCH (09:00)
[2016-07-23] MEDS: Ascorbic Acid 500mg tab GT SCH (09:00)
--- NOTE | 2016-07-23 09:01 | General Progress Note ---
Assessment/Plan Assessment/Plan IMPRESSION: 1. Sepsis. 2. Respiratory failure. 3. Tracheostomy. 4. Metabolic acidosis. 5. Severe protein-calorie malnutrition. 6. Evidence of hypoxemia. 7. Leukocytosis. 8. Anemia of unclear etiology. 9. reduced K 10. MRSA bacteremia 11. tachycardia PLAN care noted IV antibiotics per ID WBC better; recheck today monitor lytes; replace KCL and follow GI follow up; on feeds follow up labs rate control ID follow up for dc planning once stable on triple antibiotics and hope to taper TOO care Subjective ROS Limited/Unobtainable: Yes Allergies: Coded Allergies: SULFA (SULFONAMIDE ANTIBIOTICS) (Verified Allergy, Intermediate, 02/07/16) Subjective remains ill poor LOC overall labs better tachycardia borderline Objective Last 24 Hour Vital Signs Date Time Temp Pulse Resp B/P Pulse Ox O2 Delivery O2 Flow Rate FiO2 07/23/16 08:07 40 07/23/16 08:07 89 07/23/16 07:04 108 24 35 07/23/16 05:28 97 96/62 07/23/16 05:06 104 29 35 07/23/16 04:00 97 07/23/16 04:00 97.3 94 24 96/55 100 07/23/16 04:00 40 07/23/16 02:50 104 28 35 07/23/16 00:59 103 20 35 07/23/16 00:00 104 07/23/16 00:00 40 07/23/16 00:00 96.8 106 26 98/51 100 07/22/16 23:49 106 98/51 07/22/16 23:01 104 19 35 07/22/16 20:43 107 21 35 07/22/16 20:00 97.2 103 19 96/55 100 07/22/16 20:00 108 07/22/16 20:00 40 07/22/16 19:17 109 24 100 Mechanical Ventilator 07/22/16 19:07 114 24 100 Mechanical Ventilator 35 07/22/16 19:06 114 22 35 07/22/16 18:07 111 107/54 07/22/16 17:08 111 20 35 07/22/16 16:00 98.2 102 20 98/64 100 Mechanical Ventilator 40 07/22/16 15:55 40 07/22/16 15:20 100 27 100 Mechanical Ventilator 07/22/16 15:16 100 27 35 07/22/16 15:12 99 25 100 Mechanical Ventilator 35 07/22/16 13:42 102 107/54 07/22/16 12:36 100 25 35 07/22/16 12:00 96.8 97 20 96/55 100 Mechanical Ventilator 40 07/22/16 11:46 102 07/22/16 11:46 40 07/22/16 11:12 97 18 100 Mechanical Ventilator 07/22/16 10:34 100 20 40 07/22/16 10:34 100 25 100 Mechanical Ventilator 40 07/22/16 09:06 102 18 40 Intake and Output 07/22/16 07/23/16 19:00 07:00 Intake Total 360 ml 280 ml Output Total 550 ml 450 ml Balance -190 ml -170 ml Free Water 50 ml IV Total 110 ml Tube Feeding 360 ml 120 ml Output Urine Total 550 ml 450 ml Laboratory Tests 07/23/16 05:45: Random Vancomycin Level 47.4 Height (Feet): 5 Height (Inches): 6.00 Weight (Pounds): 194 Objective GENERAL: The patient is ill appearing female, chronically ill, older than her stated age. HEENT: Tracheostomy is in midline. NECK: Supple. LUNGS: Coarse breath sounds. symmetric CARDIAC: S1 and S2. Tachycardia recurrent ABDOMEN: Soft. G-tube. EXTREMITIES: Significant contractures overall. MARIO ARIAS July 23, 2016 09:01
--- NOTE | 2016-07-23 09:01 | Infectious Diseases Prog Note ---
Assessment/Plan Assessment/Plan A: MRSA sepsis Infected pressure ulcer pneumonia with Acinetobacter & Providencia VDRF Encephalopathy Left hydronephrosis Fecal impaction P; Continue Vancomycin , Cefepime & Flagyl Subjective ROS Limited/Unobtainable: Yes Allergies: Coded Allergies: SULFA (SULFONAMIDE ANTIBIOTICS) (Verified Allergy, Intermediate, 02/07/16) Objective Vital Signs Last 24 Hour Vital Signs Date Time Temp Pulse Resp B/P Pulse Ox O2 Delivery O2 Flow Rate FiO2 07/23/16 08:07 40 07/23/16 08:07 89 07/23/16 07:04 108 24 35 07/23/16 05:28 97 96/62 07/23/16 05:06 104 29 35 07/23/16 04:00 97 07/23/16 04:00 97.3 94 24 96/55 100 07/23/16 04:00 40 07/23/16 02:50 104 28 35 07/23/16 00:59 103 20 35 07/23/16 00:00 104 07/23/16 00:00 40 07/23/16 00:00 96.8 106 26 98/51 100 07/22/16 23:49 106 98/51 07/22/16 23:01 104 19 35 07/22/16 20:43 107 21 35 07/22/16 20:00 97.2 103 19 96/55 100 07/22/16 20:00 108 07/22/16 20:00 40 07/22/16 19:17 109 24 100 Mechanical Ventilator 07/22/16 19:07 114 24 100 Mechanical Ventilator 35 07/22/16 19:06 114 22 35 07/22/16 18:07 111 107/54 07/22/16 17:08 111 20 35 07/22/16 16:00 98.2 102 20 98/64 100 Mechanical Ventilator 40 07/22/16 15:55 40 07/22/16 15:20 100 27 100 Mechanical Ventilator 07/22/16 15:16 100 27 35 07/22/16 15:12 99 25 100 Mechanical Ventilator 35 07/22/16 13:42 102 107/54 07/22/16 12:36 100 25 35 07/22/16 12:00 96.8 97 20 96/55 100 Mechanical Ventilator 40 07/22/16 11:46 102 07/22/16 11:46 40 07/22/16 11:12 97 18 100 Mechanical Ventilator 07/22/16 10:34 100 20 40 07/22/16 10:34 100 25 100 Mechanical Ventilator 40 07/22/16 09:06 102 18 40 Height (Feet): 5 Height (Inches): 6.00 Weight (Pounds): 194 HEENT: status post trach Respiratory/Chest: lungs clear, other - on ventilator Cardiovascular: normal rate Abdomen: soft, non tender, other - GT in place Extremities: other - edema of arms, left arm PICCline Neurologic/Psychiatric: pronator drift, other - awake Laboratory Tests Test 07/23/16 05:45 Random Vancomycin Level 47.4 ug/mL Current Medications Medications (Trade) Dose Ordered Sig/Daljit Route PRN Reason Start Time Stop Time Status Last Admin Dose Admin Ascorbic Acid (Vitamin C) 500 mg DAILY GT 07/18/16 09:00 08/17/16 08:59 07/22/16 08:38 Aspirin (ASA) 81 mg DAILY GT 07/18/16 09:00 08/17/16 08:59 07/22/16 08:38 Atorvastatin Calcium (Lipitor) 10 mg BEDTIME GT 07/17/16 21:00 08/16/16 20:59 07/22/16 20:59 Cefepime HCl/ Dextrose (Maxipime/D5W) 55 ml @ 110 mls/hr EVERY 12 HOURS IVPB 07/19/16 21:00 07/26/16 20:59 07/22/16 20:59 Diltiazem HCl (Cardizem) 60 mg Q6HR GT 07/18/16 00:00 08/17/16 00:00 07/23/16 05:28 Lansoprazole 30 mg 30 mg DAILY GT 07/18/16 09:00 08/17/16 08:59 07/22/16 08:38 Magnesium Hydroxide (Mom) 30 ml DAILY GT 07/18/16 09:00 08/17/16 08:59 07/21/16 09:32 Metoclopramide HCl (Reglan) 5 mg Q6HR IVP 07/18/16 00:00 08/17/16 00:00 07/23/16 05:28 Metronidazole (Flagyl) 500 mg EVERY 8 HOURS ORAL 07/20/16 14:00 07/27/16 13:59 07/23/16 05:28 Tramadol HCl (Ultram) 50 mg Q6H PRN GT For Pain 07/17/16 19:30 07/24/16 19:29 07/23/16 00:32 Vancomycin HCl (Vanco rx to dose) 1 ea DAILY PRN MISC Per rx protocol 07/17/16 19:30 08/16/16 19:29 Zinc Sulfate (Zinc Sulfate) 220 mg DAILY GT 07/18/16 09:00 08/17/16 08:59 07/22/16 08:38 KAIDEN MOHAN July 23, 2016 09:01
--- NOTE | 2016-07-23 09:28 | Pre-Procedure Note/Attestation ---
Pre-Procedure Note/Attestation Complete Prior to Procedure Planned Procedure: not applicable Procedure Narrative: esophagogastroduodenoscopy, G to J, Indications for Procedure Pre-Operative Diagnosis: TF intolerance Attestation I attest that I discussed the nature of the procedure; its benefits; risks and complications; and alternatives (and the risks and benefits of such alternatives ), prior to the procedure, with the patient (or the patient's legal livestock sales representative). I attest that, if there was a reasonable possibility of needing a blood transfusion, the patient (or the patient's legal livestock sales representative) was given the [facility] standardized written summary, pursuant to the [place] Blood Safety Act ([place] Health and Safety Code # 1645, as amended). I attest that I re-evaluated the patient just prior to the surgery and that there has been no change in the patient's H&P, except as documented below: LISA BALL July 23, 2016 09:28
[2016-07-23] MEDS ORDERED: fentaNYL 100 mcg/2 mL IV ONE (09:45)
[2016-07-23] MEDS ORDERED: Propofol 10mg/ml 20ml IV ONE (09:45)
[2016-07-23] MEDS ORDERED: NS 550ML IV ONE (09:50)
--- NOTE | 2016-07-23 10:41 | General Progress Note ---
Assessment/Plan Assessment/Plan Assessment - Gastroparesis / TF intolerance - Anemia, OB (+) - Leukocytosis - Resp failure / trach - dysphagia / GT - TF intolerance - rectal stool impaction - hydro vs ureterocele Recommendations - GT drainage and JT feeds - Reglan - monitor CBC - abx - laxatives Subjective Allergies: Coded Allergies: SULFA (SULFONAMIDE ANTIBIOTICS) (Verified Allergy, Intermediate, 02/07/16) Subjective NPO for EGD EGD performed this am Findings: - Bile reflux - poor gastric motility - G to J conversion performed Objective Last 24 Hour Vital Signs Date Time Temp Pulse Resp B/P Pulse Ox O2 Delivery O2 Flow Rate FiO2 07/23/16 08:44 107 22 35 07/23/16 08:07 40 07/23/16 08:07 89 07/23/16 08:00 97.3 91 21 100/53 100 07/23/16 07:04 108 24 35 07/23/16 05:28 97 96/62 07/23/16 05:06 104 29 35 07/23/16 04:00 97 07/23/16 04:00 97.3 94 24 96/55 100 07/23/16 04:00 40 07/23/16 02:50 104 28 35 07/23/16 00:59 103 20 35 07/23/16 00:00 104 07/23/16 00:00 40 07/23/16 00:00 96.8 106 26 98/51 100 07/22/16 23:49 106 98/51 07/22/16 23:01 104 19 35 07/22/16 20:43 107 21 35 07/22/16 20:00 97.2 103 19 96/55 100 07/22/16 20:00 108 07/22/16 20:00 40 07/22/16 19:17 109 24 100 Mechanical Ventilator 07/22/16 19:07 114 24 100 Mechanical Ventilator 35 07/22/16 19:06 114 22 35 07/22/16 18:07 111 107/54 07/22/16 17:08 111 20 35 07/22/16 16:00 98.2 102 20 98/64 100 Mechanical Ventilator 40 07/22/16 15:55 40 07/22/16 15:20 100 27 100 Mechanical Ventilator 07/22/16 15:16 100 27 35 07/22/16 15:12 99 25 100 Mechanical Ventilator 35 07/22/16 13:42 102 107/54 07/22/16 12:36 100 25 35 07/22/16 12:00 96.8 97 20 96/55 100 Mechanical Ventilator 40 07/22/16 11:46 102 07/22/16 11:46 40 07/22/16 11:12 97 18 100 Mechanical Ventilator Intake and Output 07/22/16 07/23/16 19:00 07:00 Intake Total 360 ml 280 ml Output Total 550 ml 450 ml Balance -190 ml -170 ml Free Water 50 ml IV Total 110 ml Tube Feeding 360 ml 120 ml Output Urine Total 550 ml 450 ml Laboratory Tests 07/23/16 05:45: Random Vancomycin Level 47.4 Height (Feet): 5 Height (Inches): 6.00 Weight (Pounds): 194 Objective debilitated AA woman NCAT (+) trach CTA RRR obese soft abd, (+) GT OBS LISA BALL July 23, 2016 10:41
--- NOTE | 2016-07-23 10:42 | Anethesia Preoperative Eval ---
Anesthesia Pre-op PMH/ROS General Date of Evaluation: July 23, 2016 Time of Evaluation: 09:42 Anesthesiologist: Nadeem ASA Score: ASA 4 Mallampati Score Class I : Soft palate, uvula, fauces, pillars visible Class II: Soft palate, uvula, fauces visible Class III: Soft palate, base of uvula visible Class IV: Only hard plate visible Mallampati Classification: Class III Surgeon: Rafal Diagnosis: dysphagia Surgical Procedure: EGD Jejunal feeding tube placement Anesthesia History: none Family History: no anesthesia problems Allergies: Coded Allergies: SULFA (SULFONAMIDE ANTIBIOTICS) (Verified Allergy, Intermediate, 02/07/16) Medications: see eMAR Past Medical History Cardiovascular: Reports: CAD, HTN, arrhythmia Pulmonary: Reports: BETHANY, other - respiratory failure Gastrointestinal/Genitourinary: Reports: CRI, GERD Neurologic/Psychiatric: Reports: CVA, dementia, Denies: TIA, depression/anxiety, other Endocrine: Reports: DM, hypothyroidism, Denies: other, steroids HEENT: Denies: SYCUAN (L), SYCUAN (R), cataract (L), cataract (R), glaucoma, other Hematology/Immune: Reports: anemia, Denies: DVT, bleeding disorder, other Musculoskeletal/Integumentary: Reports: DJD Other: obesity PMH Narrative: as above PSxH Narrative: see chart Anesthesia Pre-op Phys. Exam Physician Exam Last Vital Signs Date Time Temp Pulse Resp B/P Pulse Ox O2 Delivery O2 Flow Rate FiO2 07/23/16 08:44 107 22 35 07/23/16 08:00 97.3 100/53 100 07/22/16 19:17 Mechanical Ventilator Constitutional: NAD Neurologic: other - unable to obtaine Cardiovascular: RRR Respiratory: other - diffuse weezing and rhonky Gastrointestinal: other - obesity Airway Exam Mallampati Score: Class III MO: limited Neck: tracheostomy in place ROM: limited Teeth: missing Dentures: no lower, no upper Anesthesia Pre-op A/P Labs see chart Risk Assessment & Plan Assessment: ASA 4 Plan: MAC Status Change Before Surgery: No Pre-Antibiotics Drug: none KEL DUFFY M.D. July 23, 2016 10:42
--- NOTE | 2016-07-23 10:44 | Immediate Post-Op Evaluation ---
Immediate Post-Op Evalulation Immediate Post-Op Evalulation Procedure: EGD J-tube placement Date of Evaluation: July 23, 2016 Time of Evaluation: 10:43 IV Fluids: 200 Blood Products: none Estimated Blood Loss: none Urinary Output: none Blood Pressure Systolic: 96 Blood Pressure Diastolic: 48 Pulse Rate: 89 Respiratory Rate: 16 O2 Sat by Pulse Oximetry: 98 Temperature (Fahrenheit): 97.5 Pain Score (1-10): 1 Nausea: No Vomiting: No Complications none Patient Status: no response, ventilated, none Hydration Status: adequate KEL DUFFY M.D. July 23, 2016 10:44
--- NOTE | 2016-07-23 10:48 | Endoscopy Procedure Note ---
Endoscopy Procedure Note Indication for Procedure: TF intolerance Procedures Performed: EGD Operative Findings/Diagnosis: G--> J Specimen: none Pt Tolerated Procedure Well: Yes Estimated Blood Loss: none Anesthesiologist: present Anesthesia: MAC Medication Given: see anesthesia record Implant(s) used?: No 50 yrs or older w/o bx or poly: Not Applicable 10yrs. F/U not recommended: Not Applicable If not recommended, why?: LISA BALL July 23, 2016 10:48
--- NOTE | 2016-07-23 10:50 | Brief Operative Note ---
Immediate Post Operative Note Operative Note Chief Complaint: dysphagia Pre-op Diagnosis: TF intolerance Procedure: EGD, G to J Post-op Diagnosis: gastroparesis Surgeon: anna Anesthesiologist: see report Anesthesia: MAC Specimen: none Complications: none Condition: stable Drains: none Implant(s) used?: No LISA BALL July 23, 2016 10:50
--- NOTE | 2016-07-23 11:03 | 48 Hour Post Anesthesia Eval ---
Post Anesthesia Evaluation Procedure: EGD J-tube placement Date of Evaluation: July 23, 2016 Time of Evaluation: 11:02 Blood Pressure Systolic: 104 0: 56 Pulse Rate: 78 Respiratory Rate: 22 Temperature (Fahrenheit): 97.6 O2 Sat by Pulse Oximetry: 98 Airway: other - tracheostomy Nausea: No Vomiting: No Pain Intensity: 1 Hydration Status: adequate Cardiopulmonary Status: stable Mental Status/LOC: patient returned to baseline Follow-up Care/Observations: n/a Post-Anesthesia Complications: none Follow-up care needed: N/A KEL DUFFY M.D. July 23, 2016 11:03
[2016-07-23] MEDS: Cefepime HCl 1 GM in D5W 55 ML IVPB SCH ×2 (11:36→21:20)
[2016-07-23 12:00] VITALS: BP 95/60
[2016-07-23 16:00] VITALS: BP 94/54
[2016-07-23 20:47] VITALS: BP 99/59
[2016-07-24] VITALS (7 sets, daily range): BP systolic 91–123; BP diastolic 50–76
[2016-07-24] MEDS: Metoclopramide 10mg/2ml Inj IVP SCH ×4 (00:33→17:39)
[2016-07-24 04:49] LABS: MEAN CORPUSCULAR HEMOGLOBIN 26.7 PG (27.0-31.0); MEAN CORPUSCULAR HGB CONC 31.2 G/DL (32.0-36.0); MEAN CORPUSCULAR VOLUME 86 FL (80-99); PLATELET COUNT 342 K/UL (150-450); RED BLOOD COUNT 3.82 M/UL (4.20-5.40); RED CELL DISTRIBUTION WIDTH 17.6 % (11.6-14.8)
[2016-07-24 05:10] LABS: CREATININE 1.2 mg/dL (0.5-0.9); POTASSIUM 3.4 mEQ/L (3.4-4.9)
[2016-07-24] MEDS: metroNIDAZOLE 500mg tab ORAL SCH ×3 (06:03→22:20)
--- NOTE | 2016-07-24 08:37 | General Progress Note ---
Assessment/Plan Assessment/Plan IMPRESSION: 1. Sepsis. 2. Respiratory failure. 3. Tracheostomy. 4. Metabolic acidosis. 5. Severe protein-calorie malnutrition. 6. Evidence of hypoxemia. 7. Leukocytosis. 8. Anemia of unclear etiology. 9. reduced K 10. MRSA bacteremia 11. tachycardia PLAN care noted IV antibiotics per ID WBC better; recheck in am monitor lytes; replace KCL and follow GI follow up; on feeds follow up labs rate control- now near normal ID follow up for dc planning once stable still not ready for dc TOO care Subjective ROS Limited/Unobtainable: Yes Allergies: Coded Allergies: SULFA (SULFONAMIDE ANTIBIOTICS) (Verified Allergy, Intermediate, 02/07/16) Subjective remains ill poor LOC overall labs slowly improving tachycardia borderline Objective Last 24 Hour Vital Signs Date Time Temp Pulse Resp B/P Pulse Ox O2 Delivery O2 Flow Rate FiO2 07/24/16 07:09 102 27 35 07/24/16 06:00 100 94/54 07/24/16 05:18 105 22 35 07/24/16 04:00 97.0 101 22 94/54 100 Mechanical Ventilator 40 07/24/16 03:36 112 07/24/16 02:42 107 26 35 07/24/16 00:33 104 23 35 07/24/16 00:29 105 123/76 07/24/16 00:06 40 07/24/16 00:00 40 07/24/16 00:00 97.0 105 22 123/76 99 Mechanical Ventilator 40 07/23/16 23:54 104 07/23/16 23:00 107 25 35 07/23/16 20:47 95.5 100 22 99/59 99 Mechanical Ventilator 40 07/23/16 20:40 106 27 35 07/23/16 20:00 100 07/23/16 20:00 40 07/23/16 19:10 108 26 35 07/23/16 17:53 107 95/60 07/23/16 17:16 107 23 35 07/23/16 16:00 96.4 95 22 94/54 100 Mechanical Ventilator 40 07/23/16 16:00 40 07/23/16 16:00 88 07/23/16 15:06 106 20 35 07/23/16 12:43 109 22 35 07/23/16 12:00 96.8 87 20 95/60 100 Mechanical Ventilator 40 07/23/16 11:35 90 104/56 07/23/16 11:27 40 07/23/16 11:27 90 07/23/16 11:03 78 22 98 07/23/16 10:44 89 16 98 07/23/16 10:32 103 21 35 07/23/16 10:32 117 18 Nasal Cannula 4.0 36 07/23/16 08:44 107 22 35 Intake and Output 07/23/16 07/24/16 19:00 07:00 Intake Total 505 ml 710 ml Output Total 350 ml 200 ml Balance 155 ml 510 ml Free Water 100 ml 150 ml IV Total 110 ml Tube Feeding 405 ml 450 ml Output Urine Total 350 ml 200 ml # Bowel Movements 1 4 Laboratory Tests 07/24/16 04:10: White Blood Count 15.0H, Red Blood Count 3.82L, Hemoglobin 10.2L, Hematocrit 32.8L, Mean Corpuscular Volume 86, Mean Corpuscular Hemoglobin 26.7L, Mean Corpuscular Hemoglobin Concent 31.2L, Red Cell Distribution Width 17.6H, Platelet Count 342, Mean Platelet Volume 8.0, Neutrophils (%) (Auto) , Lymphocytes (%) (Auto) , Monocytes (%) (Auto) , Eosinophils (%) (Auto) , Basophils (%) (Auto) , Sodium Level 137, Potassium Level 3.4, Chloride Level 101 , Carbon Dioxide Level 16L, Anion Gap 20H, Blood Urea Nitrogen 26H, Creatinine 1.2H, Estimat Glomerular Filtration Rate 56.0, Glucose Level 181H, Calcium Level 8.0L Height (Feet): 5 Height (Inches): 6.00 Weight (Pounds): 194 Objective GENERAL: The patient is ill appearing female, chronically ill, older than her stated age. HEENT: Tracheostomy is in midline. NECK: Supple. LUNGS: Coarse breath sounds. symmetric CARDIAC: S1 and S2. Tachycardia recurrent ABDOMEN: Soft. G-tube. EXTREMITIES: Significant contractures overall. MARIO ARIAS July 24, 2016 08:37
[2016-07-24] MEDS: Zinc Sulfate 220mg cap GT SCH (10:31)
[2016-07-24] MEDS: Aspirin Baby 81mg GT SCH (10:31)
[2016-07-24] MEDS: Milk of Magnesia 30ml Ud GT SCH (10:31)
[2016-07-24] MEDS: Ascorbic Acid 500mg tab GT SCH (10:35)
--- NOTE | 2016-07-24 12:14 | Infectious Diseases Prog Note ---
"Assessment/Plan Assessment/Plan antibiotics : vancomycin iv, cefepime, flagyl A 1. MRSA sepsis 2. acenitobacter | providencia pneumonia 3. respiratory failure 4. leucocytosis improving 5. encephalopathy P 1. continue vancomycin iv 2. conitnue cefepime, flagyl 4 more days 3. will follow up cultures Subjective ROS Limited/Unobtainable: Yes Allergies: Coded Allergies: SULFA (SULFONAMIDE ANTIBIOTICS) (Verified Allergy, Intermediate, 02/07/16) Objective Vital Signs Last 24 Hour Vital Signs Date Time Temp Pulse Resp B/P Pulse Ox O2 Delivery O2 Flow Rate FiO2 07/24/16 11:38 40 07/24/16 11:38 108 07/24/16 10:47 104 26 35 07/24/16 08:50 102 29 35 07/24/16 08:00 108 07/24/16 08:00 40 07/24/16 08:00 97.5 108 27 93/54 100 Mechanical Ventilator 40 07/24/16 07:09 102 27 35 07/24/16 06:00 100 94/54 07/24/16 05:18 105 22 35 07/24/16 04:00 97.0 101 22 94/54 100 Mechanical Ventilator 40 07/24/16 03:36 112 07/24/16 02:42 107 26 35 07/24/16 00:33 104 23 35 07/24/16 00:29 105 123/76 07/24/16 00:06 40 07/24/16 00:00 40 07/24/16 00:00 97.0 105 22 123/76 99 Mechanical Ventilator 40 07/23/16 23:54 104 07/23/16 23:00 107 25 35 07/23/16 20:47 95.5 100 22 99/59 99 Mechanical Ventilator 40 07/23/16 20:40 106 27 35 07/23/16 20:00 100 07/23/16 20:00 40 07/23/16 19:10 108 26 35 07/23/16 17:53 107 95/60 07/23/16 17:16 107 23 35 07/23/16 16:00 96.4 95 22 94/54 100 Mechanical Ventilator 40 07/23/16 16:00 40 07/23/16 16:00 88 07/23/16 15:06 106 20 35 07/23/16 12:43 109 22 35 Height (Feet): 5 Height (Inches): 6.00 Weight (Pounds): 194 HEENT: status post trach Respiratory/Chest: lungs clear Cardiovascular: normal rate, regular rhythm, no gallop/murmur Abdomen: soft, non tender, other - GT Extremities: no edema, other - left arm PICC Microbiology Date/Time Source Procedure Growth Status 07/21/16 17:00 Stool Clostridium difficile Toxin Assay - Final Complete Laboratory Tests Test 07/24/16 04:10 White Blood Count 15.0 K/UL (4.8-10.8) H Red Blood Count 3.82 M/UL (4.20-5.40) L Hemoglobin 10.2 G/DL (12.0-16.0) L Hematocrit 32.8 % (37.0-47.0) L Mean Corpuscular Volume 86 FL (80-99) Mean Corpuscular Hemoglobin 26.7 PG (27.0-31.0) L Mean Corpuscular Hemoglobin Concent 31.2 G/DL (32.0-36.0) L Red Cell Distribution Width 17.6 % (11.6-14.8) H Platelet Count 342 K/UL (150-450) Mean Platelet Volume 8.0 FL (6.5-10.1) Neutrophils (%) (Auto) % (45.0-75.0) Lymphocytes (%) (Auto) % (20.0-45.0) Monocytes (%) (Auto) % (1.0-10.0) Eosinophils (%) (Auto) % (0.0-3.0) Basophils (%) (Auto) % (0.0-2.0) Sodium Level 137 mEQ/L (135-145) Potassium Level 3.4 mEQ/L (3.4-4.9) Chloride Level 101 mEQ/L (98-107) Carbon Dioxide Level 16 mEQ/L (20-30) L Anion Gap 20 (5-15) H Blood Urea Nitrogen 26 mg/dL (7-23) H Creatinine 1.2 mg/dL (0.5-0.9) H Estimat Glomerular Filtration Rate 56.0 mL/min (>60) Glucose Level 181 mg/dL (74-106) H Calcium Level 8.0 mg/dL (8.6-10.2) L BAY,SHAKUNTALA July 24, 2016 12:14"
[2016-07-24] MEDS: Cefepime HCl 1 GM in D5W 55 ML IVPB SCH ×2 (12:51→22:20)
[2016-07-24] MEDS ORDERED: NS 275ml ONE (17:54)
[2016-07-24] MEDS ORDERED: Sterile Water Irrig 1000ml IRRIG ONE (17:54)
--- NOTE | 2016-07-24 21:43 | General Progress Note ---
Assessment/Plan Assessment/Plan Assessment - Gastroparesis / TF intolerance - s/p G --> J conversion - Anemia, OB (+) - Leukocytosis - Resp failure / trach - dysphagia / GT - TF intolerance - rectal stool impaction - hydro vs ureterocele Recommendations - GT drainage and JT feeds - Reglan - monitor CBC - abx - laxatives Subjective Allergies: Coded Allergies: SULFA (SULFONAMIDE ANTIBIOTICS) (Verified Allergy, Intermediate, 02/07/16) Subjective ON tube feeds via J port tolerating well Objective Last 24 Hour Vital Signs Date Time Temp Pulse Resp B/P Pulse Ox O2 Delivery O2 Flow Rate FiO2 07/24/16 20:47 111 22 35 07/24/16 19:00 102 23 35 07/24/16 18:00 40 07/24/16 18:00 106 07/24/16 17:35 110 91/50 07/24/16 16:51 107 21 35 07/24/16 16:00 110 07/24/16 16:00 40 07/24/16 16:00 97.5 110 21 91/50 98 Mechanical Ventilator 40 07/24/16 14:38 110 26 35 07/24/16 14:00 40 07/24/16 12:50 111 102/58 07/24/16 12:48 105 21 35 07/24/16 12:00 111 07/24/16 12:00 97.9 111 29 102/58 100 Mechanical Ventilator 40 07/24/16 12:00 40 07/24/16 12:00 111 07/24/16 12:00 40 07/24/16 11:38 40 07/24/16 11:38 108 07/24/16 10:47 104 26 35 07/24/16 10:00 97.9 111 29 102/58 100 Mechanical Ventilator 40 07/24/16 08:50 102 29 35 07/24/16 08:00 108 07/24/16 08:00 40 07/24/16 08:00 97.5 108 27 93/54 100 Mechanical Ventilator 40 07/24/16 07:09 102 27 35 07/24/16 06:00 100 94/54 07/24/16 05:18 105 22 35 07/24/16 04:00 97.0 101 22 94/54 100 Mechanical Ventilator 40 07/24/16 03:36 112 07/24/16 02:42 107 26 35 07/24/16 00:33 104 23 35 07/24/16 00:29 105 123/76 07/24/16 00:06 40 07/24/16 00:00 40 07/24/16 00:00 97.0 105 22 123/76 99 Mechanical Ventilator 40 07/23/16 23:54 104 07/23/16 23:00 107 25 35 Intake and Output 07/23/16 07/24/16 19:00 07:00 Intake Total 505 ml 710 ml Output Total 350 ml 200 ml Balance 155 ml 510 ml Free Water 100 ml 150 ml IV Total 110 ml Tube Feeding 405 ml 450 ml Output Urine Total 350 ml 200 ml # Bowel Movements 1 4 Laboratory Tests 07/24/16 04:10: White Blood Count 15.0H, Red Blood Count 3.82L, Hemoglobin 10.2L, Hematocrit 32.8L, Mean Corpuscular Volume 86, Mean Corpuscular Hemoglobin 26.7L, Mean Corpuscular Hemoglobin Concent 31.2L, Red Cell Distribution Width 17.6H, Platelet Count 342, Mean Platelet Volume 8.0, Neutrophils (%) (Auto) , Lymphocytes (%) (Auto) , Monocytes (%) (Auto) , Eosinophils (%) (Auto) , Basophils (%) (Auto) , Sodium Level 137, Potassium Level 3.4, Chloride Level 101 , Carbon Dioxide Level 16L, Anion Gap 20H, Blood Urea Nitrogen 26H, Creatinine 1.2H, Estimat Glomerular Filtration Rate 56.0, Glucose Level 181H, Calcium Level 8.0L 07/24/16 16:20: Random Vancomycin Level 46.5 Height (Feet): 5 Height (Inches): 6.00 Weight (Pounds): 194 Objective debilitated AA woman NCAT (+) trach CTA RRR obese soft abd, (+) GJT OBS NAILALISA SOLIS July 24, 2016 21:43
[2016-07-25 00:18] VITALS: BP 96/57
[2016-07-25] MEDS: Metoclopramide 10mg/2ml Inj IVP SCH ×4 (00:53→17:55)
[2016-07-25 04:00] VITALS: BP 98/61
[2016-07-25] MEDS: metroNIDAZOLE 500mg tab ORAL SCH ×3 (06:23→22:27)
[2016-07-25 08:00] VITALS: BP 130/94
[2016-07-25] MEDS: Ascorbic Acid 500mg tab GT SCH (08:17)
[2016-07-25] MEDS: Zinc Sulfate 220mg cap GT SCH (08:17)
[2016-07-25] MEDS: Aspirin Baby 81mg GT SCH (08:17)
[2016-07-25] MEDS: Cefepime HCl 1 GM in D5W 55 ML IVPB SCH ×2 (08:26→22:28)
--- NOTE | 2016-07-25 08:35 | General Progress Note ---
Assessment/Plan Assessment/Plan IMPRESSION: 1. Sepsis. 2. Respiratory failure. 3. Tracheostomy. 4. Metabolic acidosis. 5. Severe protein-calorie malnutrition. 6. Evidence of hypoxemia. 7. Leukocytosis. 8. Anemia of unclear etiology. 9. reduced K 10. MRSA bacteremia 11. tachycardia PLAN care noted IV antibiotics per ID WBC still elevated monitor lytes; GI follow up; on feeds follow up labs rate control ID follow up for dc planning once stable still not ready for dc with current labs and vital signs TOO care Subjective ROS Limited/Unobtainable: Yes Allergies: Coded Allergies: SULFA (SULFONAMIDE ANTIBIOTICS) (Verified Allergy, Intermediate, 02/07/16) Subjective remains ill poor LOC overall labs still with leukocytosis tachycardia still mild Objective Last 24 Hour Vital Signs Date Time Temp Pulse Resp B/P Pulse Ox O2 Delivery O2 Flow Rate FiO2 07/25/16 06:35 104 28 40 07/25/16 06:00 98/61 07/25/16 05:06 97 27 35 07/25/16 04:00 97.7 99 18 98/61 88 Mechanical Ventilator 07/25/16 04:00 102 07/25/16 04:00 40 07/25/16 03:18 98 33 35 07/25/16 01:11 101 22 35 07/25/16 00:21 96/57 07/25/16 00:18 97.2 96 19 96/57 89 Mechanical Ventilator 07/25/16 00:00 98 07/25/16 00:00 40 07/24/16 23:28 98 23 35 07/24/16 20:47 111 22 35 07/24/16 20:00 96.8 96 19 93/54 87 Mechanical Ventilator 07/24/16 19:48 97 07/24/16 19:00 102 23 35 07/24/16 18:00 40 07/24/16 18:00 106 07/24/16 17:35 110 91/50 07/24/16 16:51 107 21 35 07/24/16 16:00 110 07/24/16 16:00 40 07/24/16 16:00 97.5 110 21 91/50 98 Mechanical Ventilator 40 07/24/16 14:38 110 26 35 07/24/16 14:00 40 07/24/16 12:50 111 102/58 07/24/16 12:48 105 21 35 07/24/16 12:00 111 07/24/16 12:00 97.9 111 29 102/58 100 Mechanical Ventilator 40 07/24/16 12:00 40 07/24/16 12:00 111 07/24/16 12:00 40 07/24/16 11:38 40 07/24/16 11:38 108 07/24/16 10:47 104 26 35 07/24/16 10:00 97.9 111 29 102/58 100 Mechanical Ventilator 40 07/24/16 08:50 102 29 35 Intake and Output 07/24/16 07/25/16 19:00 07:00 Intake Total 140 ml 890 ml Output Total 150 ml 500 ml Balance -10 ml 390 ml Free Water 50 ml 350 ml Tube Feeding 90 ml 540 ml Output Urine Total 150 ml 500 ml # Bowel Movements 1 1 Laboratory Tests 07/24/16 16:20: Random Vancomycin Level 46.5 Height (Feet): 5 Height (Inches): 6.00 Weight (Pounds): 194 Objective GENERAL: The patient is ill appearing female, chronically ill, older than her stated age. HEENT: Tracheostomy is in midline. NECK: Supple. LUNGS: Coarse breath sounds. symmetric CARDIAC: S1 and S2. Tachycardia recurrent ABDOMEN: Soft. G-tube. EXTREMITIES: Significant contractures overall. MARIO ARIAS July 25, 2016 08:35
[2016-07-25] MEDS: Milk of Magnesia 30ml Ud GT SCH (08:41)
--- NOTE | 2016-07-25 11:54 | Infectious Diseases Prog Note ---
"Assessment/Plan Assessment/Plan antibiotics : vancomycin iv, cefepime, flagyl A 1. MRSA sepsis 2. acenitobacter | providencia pneumonia 3. respiratory failure 4. leucocytosis improving 5. encephalopathy P 1. continue vancomycin iv 2. conitnue cefepime, flagyl 3 more days 3. will follow up cultures Subjective ROS Limited/Unobtainable: Yes Allergies: Coded Allergies: SULFA (SULFONAMIDE ANTIBIOTICS) (Verified Allergy, Intermediate, 02/07/16) Objective Vital Signs Last 24 Hour Vital Signs Date Time Temp Pulse Resp B/P Pulse Ox O2 Delivery O2 Flow Rate FiO2 07/25/16 10:32 95 29 40 07/25/16 08:42 96 28 40 07/25/16 08:01 97 07/25/16 08:00 40 07/25/16 08:00 96.6 100 28 130/94 94 Mechanical Ventilator 40 07/25/16 06:35 104 28 40 07/25/16 06:00 98/61 07/25/16 05:06 97 27 35 07/25/16 04:00 97.7 99 18 98/61 88 Mechanical Ventilator 07/25/16 04:00 102 07/25/16 04:00 40 07/25/16 03:18 98 33 35 07/25/16 01:11 101 22 35 07/25/16 00:21 96/57 07/25/16 00:18 97.2 96 19 96/57 89 Mechanical Ventilator 07/25/16 00:00 98 07/25/16 00:00 40 07/24/16 23:28 98 23 35 07/24/16 20:47 111 22 35 07/24/16 20:00 96.8 96 19 93/54 87 Mechanical Ventilator 07/24/16 19:48 97 07/24/16 19:00 102 23 35 07/24/16 18:00 40 07/24/16 18:00 106 07/24/16 17:35 110 91/50 07/24/16 16:51 107 21 35 07/24/16 16:00 110 07/24/16 16:00 40 07/24/16 16:00 97.5 110 21 91/50 98 Mechanical Ventilator 40 07/24/16 14:38 110 26 35 07/24/16 14:00 40 07/24/16 12:50 111 102/58 07/24/16 12:48 105 21 35 07/24/16 12:00 111 07/24/16 12:00 97.9 111 29 102/58 100 Mechanical Ventilator 40 07/24/16 12:00 40 07/24/16 12:00 111 07/24/16 12:00 40 Height (Feet): 5 Height (Inches): 6.00 Weight (Pounds): 194 HEENT: status post trach Respiratory/Chest: lungs clear Cardiovascular: normal rate, regular rhythm, no gallop/murmur Abdomen: soft, non tender, other - GT Extremities: other - + edema, left arm PICC Laboratory Tests Test 07/24/16 16:20 Random Vancomycin Level 46.5 ug/mL KIMBERLI HERMOSILLO July 25, 2016 11:54"
[2016-07-25 12:54] VITALS: BP 122/56
[2016-07-25 16:00] VITALS: BP 105/58
[2016-07-25 16:28] LABS: MEAN CORPUSCULAR HEMOGLOBIN 29.1 PG (27.0-31.0); MEAN CORPUSCULAR HGB CONC 33.2 G/DL (32.0-36.0); MEAN CORPUSCULAR VOLUME 88 FL (80-99); MEAN PLATELET VOLUME 7.1 FL (6.5-10.1); PLATELET COUNT 217 K/UL (150-450); RED BLOOD COUNT 3.16 M/UL (4.20-5.40); RED CELL DISTRIBUTION WIDTH 17.4 % (11.6-14.8); WHITE BLOOD COUNT 12.3 K/UL (4.8-10.8)
[2016-07-25 16:48] LABS: INR 2.3 (0.9-1.1)
[2016-07-25 17:02] LABS: ANISOCYTOSIS 1+; BAND NEUTROPHILS % (MANUAL) 15 % (0-8); HYPOCHROMASIA 1+; LYMPHOCYTES % (MANUAL) 12 % (20-45); NEUTROPHILS % (MANUAL) 69 % (45-75); NUCLEATED RED BLOOD CELLS 1 /100 WBC; TOTAL CELLS COUNTED 100
[2016-07-25 17:03] LABS: BASOPHILS % (MANUAL) 0 % (0-2); EOSINOPHILS % (MANUAL) 0 % (0-3); PLATELET ESTIMATE ADEQUATE; PLATELET MORPHOLOGY NORMAL
--- NOTE | 2016-07-25 17:09 | General Progress Note ---
Assessment/Plan Assessment/Plan Assessment - Gastroparesis / TF intolerance - s/p G --> J conversion - Anemia, OB (+) - Leukocytosis - Resp failure / trach - dysphagia / GT - TF intolerance - rectal stool impaction - hydro vs ureterocele Recommendations - GT drainage and JT feeds - Reglan - monitor CBC - abx - laxatives Subjective Allergies: Coded Allergies: SULFA (SULFONAMIDE ANTIBIOTICS) (Verified Allergy, Intermediate, 02/07/16) Subjective ON tube feeds via J port tolerating well advised RN to place GT port to gravity 600 cc of gastric residuals drained Objective Last 24 Hour Vital Signs Date Time Temp Pulse Resp B/P Pulse Ox O2 Delivery O2 Flow Rate FiO2 07/25/16 16:49 99 29 40 07/25/16 14:30 96 27 40 07/25/16 12:54 97.2 93 26 122/56 92 Mechanical Ventilator 40 07/25/16 12:52 98 31 40 07/25/16 12:00 40 07/25/16 12:00 93 122/56 07/25/16 10:32 95 29 40 07/25/16 08:42 96 28 40 07/25/16 08:01 97 07/25/16 08:00 40 07/25/16 08:00 96.6 100 28 130/94 94 Mechanical Ventilator 40 07/25/16 06:35 104 28 40 07/25/16 06:00 98/61 07/25/16 05:06 97 27 35 07/25/16 04:00 97.7 99 18 98/61 88 Mechanical Ventilator 07/25/16 04:00 102 07/25/16 04:00 40 07/25/16 03:18 98 33 35 07/25/16 01:11 101 22 35 07/25/16 00:21 96/57 07/25/16 00:18 97.2 96 19 96/57 89 Mechanical Ventilator 07/25/16 00:00 98 07/25/16 00:00 40 07/24/16 23:28 98 23 35 07/24/16 20:47 111 22 35 07/24/16 20:00 96.8 96 19 93/54 87 Mechanical Ventilator 07/24/16 19:48 97 07/24/16 19:00 102 23 35 07/24/16 18:00 40 07/24/16 18:00 106 07/24/16 17:35 110 91/50 Intake and Output 07/24/16 07/25/16 19:00 07:00 Intake Total 140 ml 935 ml Output Total 150 ml 500 ml Balance -10 ml 435 ml Free Water 50 ml 350 ml Tube Feeding 90 ml 585 ml Output Urine Total 150 ml 500 ml # Bowel Movements 1 1 Laboratory Tests 07/25/16 16:15: White Blood Count 12.3H, Red Blood Count 3.16L, Hemoglobin 9.2L, Hematocrit 27.7L, Mean Corpuscular Volume 88, Mean Corpuscular Hemoglobin 29.1, Mean Corpuscular Hemoglobin Concent 33.2, Red Cell Distribution Width 17.4H, Platelet Count 217, Mean Platelet Volume 7.1, Neutrophils (%) (Auto) , Lymphocytes (%) (Auto) , Monocytes (%) (Auto) , Eosinophils (%) (Auto) , Basophils (%) (Auto) , Differential Total Cells Counted 100, Neutrophils % ( Manual) 69, Lymphocytes % (Manual) 12L, Monocytes % (Manual) 4, Eosinophils % ( Manual) 0, Basophils % (Manual) 0, Band Neutrophils 15H, Nucleated Red Blood Cells 1, Platelet Estimate Adequate, Platelet Morphology Normal, Hypochromasia 1 +, Anisocytosis 1+, Prothrombin Time 24.0H, Prothromb Time International Ratio 2.3H, Activated Partial Thromboplast Time 42H, Sodium Level [Pending], Potassium Level [Pending], Chloride Level [Pending], Carbon Dioxide Level [ Pending], Blood Urea Nitrogen [Pending], Creatinine [Pending], Estimat Glomerular Filtration Rate [Pending], Glucose Level [Pending], Calcium Level [ Pending] Height (Feet): 5 Height (Inches): 6.00 Weight (Pounds): 194 Objective debilitated AA woman NCAT (+) trach CTA RRR obese soft abd, (+) GJT OBS LISA BALL July 25, 2016 17:09
[2016-07-25 17:21] LABS: CALCIUM 7.9 mg/dL (8.6-10.2); CREATININE 1.6 mg/dL (0.5-0.9); GLOMERULAR FILTRATION RATE 40.1 mL/min (>60); POTASSIUM 3.9 mEQ/L (3.4-4.9)
--- NOTE | 2016-07-25 19:45 | Consultation ---
Consult Note Consult Note HEMATOLOGY CONSULT DATE OF CONSULTATION: 07/25/16 CHIEF COMPLAINT: Anemia, coagulopathy REGAN MALIN: HUGO ID: 56-year-old female intubated with a history of chronic respiratory failure, on a vent and PEG, who was transferred to the hospital because of tachycardia and hypotension. She was found to be profoundly anemic, so GI consult was requested for evaluation. Had a G-->J conversion. More recently had MRSA septicemia, was placed on abx. Since then was noted to have coagulopathy on checking PT/PTT and INR was 2.4. She remains anemic, occult blood was + and creatinine has uptrended, therefore hematology called for evaluation of blood dyscrasia PAST MEDICAL HISTORY: 1. Respiratory failure, chronically on vent. 2. Dysphagia with gastrostomy tube. 3. GERD. 4. History of osteomyelitis. 5. Arthritis. ALLERGIES: Sulfa. MEDICATIONS: Please see medication reconciliation list. SOCIAL HISTORY: Currently lives in a shelter. No recent history of tobacco, alcohol, or IV drug abuse. PAST SURGICAL HISTORY: Tracheostomy. FAMILY HISTORY: Noncontributory. REVIEW OF SYSTEMS: Unable to obtain. PHYSICAL EXAMINATION: GENERAL: This is a well-developed female, on a vent . VITAL SIGNS: Reviewed and are stable HEENT: Normocephalic. Eyes, pale conjunctivae. NECK: Supple. There is tracheostomy in place. CARDIOVASCULAR: Tachy. Regular rate. Plus S1 and S2. LUNGS: Decreased somewhat and diffusely. ABDOMEN: Soft and nontender. G-tube in place. No rebound. No guarding. EXTREMITIES: No cyanosis. No clubbing. No edema. LABORATORY DATA: Laboratory Tests Test 07/25/16 16:15 White Blood Count 12.3 K/UL (4.8-10.8) H Red Blood Count 3.16 M/UL (4.20-5.40) L Hemoglobin 9.2 G/DL (12.0-16.0) L Hematocrit 27.7 % (37.0-47.0) L Mean Corpuscular Volume 88 FL (80-99) Mean Corpuscular Hemoglobin 29.1 PG (27.0-31.0) Mean Corpuscular Hemoglobin Concent 33.2 G/DL (32.0-36.0) Red Cell Distribution Width 17.4 % (11.6-14.8) H Platelet Count 217 K/UL (150-450) Mean Platelet Volume 7.1 FL (6.5-10.1) Neutrophils (%) (Auto) % (45.0-75.0) Lymphocytes (%) (Auto) % (20.0-45.0) Monocytes (%) (Auto) % (1.0-10.0) Eosinophils (%) (Auto) % (0.0-3.0) Basophils (%) (Auto) % (0.0-2.0) Differential Total Cells Counted 100 Neutrophils % (Manual) 69 % (45-75) Lymphocytes % (Manual) 12 % (20-45) L Monocytes % (Manual) 4 % (1-10) Eosinophils % (Manual) 0 % (0-3) Basophils % (Manual) 0 % (0-2) Band Neutrophils 15 % (0-8) H Nucleated Red Blood Cells 1 /100 WBC Platelet Estimate Adequate Platelet Morphology Normal Hypochromasia 1+ Anisocytosis 1+ Prothrombin Time 24.0 SEC (9.30-11.50) H Prothromb Time International Ratio 2.3 (0.9-1.1) H Activated Partial Thromboplast Time 42 SEC (23-33) H Sodium Level 140 mEQ/L (135-145) Potassium Level 3.9 mEQ/L (3.4-4.9) Chloride Level 102 mEQ/L (98-107) Carbon Dioxide Level 17 mEQ/L (20-30) L Anion Gap 21 (5-15) H Blood Urea Nitrogen 40 mg/dL (7-23) H Creatinine 1.6 mg/dL (0.5-0.9) H Estimat Glomerular Filtration Rate 40.1 mL/min (>60) Glucose Level 163 mg/dL (74-106) H Calcium Level 7.9 mg/dL (8.6-10.2) L ASSESSMENT AND RECS: # Coagulopathy, profound - is likely multifactorial, given both elevation of PT and PTT means that there is global factor deficiency and problem with both extrinsic and intrinsic pathways --> most likely is related to vitamin K deficiency and malnutrition. Could be cirrhosis v medication effect as well therefore will check abd us and give VIT K stat 10mg. Will check a DIC panel as well # Anemia secondary to gi bleed - OB (+) - has been evaluted by Gi, current h/h is stable # Leukocytosis - secondary to infection, now improved # Respiratory failure s/p vent/trach # Gastroparesis / TF intolerance # s/p G --> J conversion # Resp failure / trach # Dysphagia / GT # TF intolerance # Rectal stool impaction # I want to thank Dr. Bartolome Lynch for this kind referral. Devon Durant July 25, 2016 19:45
[2016-07-25 20:00] VITALS: BP 95/45
[2016-07-25 23:33] LABS: INR 2.2 (0.9-1.1); PROTHROMBIN TIME 22.7 SEC (9.30-11.50)
[2016-07-26] VITALS (26 sets, daily range): BP systolic 34–97; BP diastolic 14–53
[2016-07-26 00:16] LABS: PATH BLOOD SMEAR/OMC SENT TO PATHOLOGIST
[2016-07-26] MEDS: Metoclopramide 10mg/2ml Inj IVP SCH ×4 (00:30→17:22)
[2016-07-26 06:04] LABS: MEAN CORPUSCULAR HEMOGLOBIN 26.7 PG (27.0-31.0); MEAN CORPUSCULAR HGB CONC 30.8 G/DL (32.0-36.0); MEAN CORPUSCULAR VOLUME 87 FL (80-99); MEAN PLATELET VOLUME 10.9 FL (6.5-10.1); PLATELET COUNT 179 K/UL (150-450); RED BLOOD COUNT 2.74 M/UL (4.20-5.40); RED CELL DISTRIBUTION WIDTH 18.5 % (11.6-14.8); WHITE BLOOD COUNT 9.6 K/UL (4.8-10.8)
[2016-07-26 06:37] LABS: CALCIUM 8.5 mg/dL (8.6-10.2); CREATININE 1.6 mg/dL (0.5-0.9); GLOMERULAR FILTRATION RATE 40.1 mL/min (>60); POTASSIUM 3.2 mEQ/L (3.4-4.9)
[2016-07-26] MEDS: metroNIDAZOLE 500mg tab ORAL SCH ×3 (06:37→22:00)
[2016-07-26 06:50] LABS: INR 1.7 (0.9-1.1); PROTHROMBIN TIME 18.1 SEC (9.30-11.50)
--- NOTE | 2016-07-26 08:14 | General Progress Note ---
Assessment/Plan Assessment/Plan IMPRESSION: 1. Sepsis. 2. Respiratory failure. 3. Tracheostomy. 4. Metabolic acidosis. 5. Severe protein-calorie malnutrition. 6. Evidence of hypoxemia. 7. Leukocytosis. 8. Anemia of unclear etiology. 9. reduced K 10. MRSA bacteremia 11. tachycardia 12. coagulopathy 13. anemia PLAN care noted IV antibiotics per ID WBC still elevated monitor lytes; GI follow up; on feeds follow up labs rate control ID follow up for dc planning once stable still not ready for dc FFP given transfuse PRBC d/w daughter heme appreciated Subjective Allergies: Coded Allergies: SULFA (SULFONAMIDE ANTIBIOTICS) (Verified Allergy, Intermediate, 02/07/16) Subjective remains ill poor LOC overall labs with coagulopathy and anemia d/w daughter; reviewed care in detail Objective Last 24 Hour Vital Signs Date Time Temp Pulse Resp B/P Pulse Ox O2 Delivery O2 Flow Rate FiO2 07/26/16 06:43 99 25 40 07/26/16 06:00 99 91/47 07/26/16 05:25 99 31 40 07/26/16 04:00 96 07/26/16 04:00 95.5 100 28 91/47 99 Mechanical Ventilator 40 07/26/16 04:00 40 07/26/16 03:10 102 28 40 07/26/16 01:17 101 26 40 07/26/16 00:00 101 07/26/16 00:00 96.4 108 28 82/53 99 Mechanical Ventilator 40 07/26/16 00:00 40 07/26/16 00:00 107 95/48 07/25/16 23:03 103 26 40 07/25/16 21:00 102 28 40 07/25/16 20:18 102 29 40 07/25/16 20:00 102 07/25/16 20:00 40 07/25/16 20:00 97.5 107 28 95/45 99 Mechanical Ventilator 40 07/25/16 19:00 99 32 40 07/25/16 17:51 99 122/56 07/25/16 16:49 99 29 40 07/25/16 16:00 100 07/25/16 16:00 97.7 104 34 105/58 96 Mechanical Ventilator 40 07/25/16 16:00 40 07/25/16 14:30 96 27 40 07/25/16 12:54 97.2 93 26 122/56 92 Mechanical Ventilator 40 07/25/16 12:52 98 31 40 07/25/16 12:00 40 07/25/16 12:00 93 122/56 07/25/16 10:32 95 29 40 07/25/16 08:42 96 28 40 Intake and Output 07/25/16 07/26/16 19:00 07:00 Intake Total 655 ml 1110 ml Output Total 1150 ml 500 ml Balance -495 ml 610 ml Free Water 150 ml 100 ml IV Total 100 ml 605 ml Tube Feeding 405 ml 405 ml Output Urine Total 100 ml 50 ml Other 1050 ml 450 ml # Bowel Movements 1 Laboratory Tests 07/25/16 16:15: White Blood Count 12.3H, Red Blood Count 3.16L, Hemoglobin 9.2L, Hematocrit 27.7L, Mean Corpuscular Volume 88, Mean Corpuscular Hemoglobin 29.1, Mean Corpuscular Hemoglobin Concent 33.2, Red Cell Distribution Width 17.4H, Platelet Count 217, Mean Platelet Volume 7.1, Neutrophils (%) (Auto) , Lymphocytes (%) (Auto) , Monocytes (%) (Auto) , Eosinophils (%) (Auto) , Basophils (%) (Auto) , Differential Total Cells Counted 100, Neutrophils % ( Manual) 69, Lymphocytes % (Manual) 12L, Monocytes % (Manual) 4, Eosinophils % ( Manual) 0, Basophils % (Manual) 0, Band Neutrophils 15H, Nucleated Red Blood Cells 1, Platelet Estimate Adequate, Platelet Morphology Normal, Hypochromasia 1 +, Anisocytosis 1+, Prothrombin Time 24.0H, Prothromb Time International Ratio 2.3H, Activated Partial Thromboplast Time 42H, Sodium Level 140, Potassium Level 3.9, Chloride Level 102, Carbon Dioxide Level 17L, Anion Gap 21H, Blood Urea Nitrogen 40H, Creatinine 1.6H, Estimat Glomerular Filtration Rate 40.1, Glucose Level 163H, Calcium Level 7.9L 07/25/16 21:00: Prothrombin Time 22.7H, Prothromb Time International Ratio 2.2H, Reticulocyte Count 0.7, Haptoglobin 205H, Fibrinogen 650H, D-Dimer 990H, Ferritin 1909H, Total Bilirubin 0.3, HIV (1&2) Antibody Rapid Negative 07/26/16 05:15: White Blood Count 9.6, Red Blood Count 2.74L, Hemoglobin 7.3L, Hematocrit 23.7L , Mean Corpuscular Volume 87, Mean Corpuscular Hemoglobin 26.7L, Mean Corpuscular Hemoglobin Concent 30.8L, Red Cell Distribution Width 18.5H, Platelet Count 179, Mean Platelet Volume 10.9H, Neutrophils (%) (Auto) , Lymphocytes (%) (Auto) , Monocytes (%) (Auto) , Eosinophils (%) (Auto) , Basophils (%) (Auto) , Neutrophils % (Manual) [Pending], Lymphocytes % (Manual) [Pending], Platelet Estimate [Pending], Platelet Morphology [Pending], Prothrombin Time 18.1H, Prothromb Time International Ratio 1.7H, Activated Partial Thromboplast Time 39H, Sodium Level 139, Potassium Level 3.2L, Chloride Level 102, Carbon Dioxide Level 18L, Anion Gap 19H, Blood Urea Nitrogen 43H, Creatinine 1.6H, Estimat Glomerular Filtration Rate 40.1, Glucose Level 183H, Calcium Level 8.5L, Random Vancomycin Level 34.0 Height (Feet): 5 Height (Inches): 6.00 Weight (Pounds): 194 Objective GENERAL: The patient is ill appearing female, chronically ill, older than her stated age. HEENT: Tracheostomy is in midline. NECK: Supple. LUNGS: Coarse breath sounds. symmetric without change CARDIAC: S1 and S2. Tachycardia better ABDOMEN: Soft. G-tube. EXTREMITIES: Significant contractures overall. MARIO ARIAS July 26, 2016 08:14
[2016-07-26 08:47] LABS: ANISOCYTOSIS 2+; BAND NEUTROPHILS % (MANUAL) 0 % (0-8); BASOPHILS % (MANUAL) 0 % (0-2); EOSINOPHILS % (MANUAL) 1 % (0-3); HYPOCHROMASIA 3+; LYMPHOCYTES % (MANUAL) 9 % (20-45); NEUTROPHILS % (MANUAL) 88 % (45-75); PLATELET ESTIMATE ADEQUATE; PLATELET MORPHOLOGY NORMAL; TOTAL CELLS COUNTED 100
[2016-07-26] MEDS: Cefepime HCl 1 GM in D5W 55 ML IVPB SCH ×3 (09:00→21:31)
[2016-07-26] MEDS: Milk of Magnesia 30ml Ud GT SCH (10:28)
[2016-07-26] MEDS: Zinc Sulfate 220mg cap GT SCH (10:28)
[2016-07-26] MEDS: Ascorbic Acid 500mg tab GT SCH (10:28)
--- NOTE | 2016-07-26 11:50 | General Progress Note ---
Assessment/Plan Assessment/Plan Assessment - Gastroparesis / TF intolerance - s/p G --> J conversion, but failing j tube feeds - Anemia, OB (+) - Leukocytosis - Resp failure / trach - dysphagia / GT - TF intolerance - rectal stool impaction - hydro vs ureterocele Recommendations - check SBFT via J port - Reglan - monitor CBC - abx - laxatives PRN Subjective Allergies: Coded Allergies: SULFA (SULFONAMIDE ANTIBIOTICS) (Verified Allergy, Intermediate, 02/07/16) Subjective ON tube feeds via J port RN reports TF coming out of G port Objective Last 24 Hour Vital Signs Date Time Temp Pulse Resp B/P Pulse Ox O2 Delivery O2 Flow Rate FiO2 07/26/16 11:02 99 27 40 07/26/16 08:49 98 25 40 07/26/16 08:00 96.0 98 23 97/52 98 Mechanical Ventilator 40 07/26/16 08:00 96.0 106 23 97/52 98 Mechanical Ventilator 40 07/26/16 06:43 99 25 40 07/26/16 06:00 99 91/47 07/26/16 05:25 99 31 40 07/26/16 04:00 96 07/26/16 04:00 95.5 100 28 91/47 99 Mechanical Ventilator 40 07/26/16 04:00 40 07/26/16 03:10 102 28 40 07/26/16 01:17 101 26 40 07/26/16 00:00 101 07/26/16 00:00 96.4 108 28 82/53 99 Mechanical Ventilator 40 07/26/16 00:00 40 07/26/16 00:00 107 95/48 07/25/16 23:03 103 26 40 07/25/16 21:00 102 28 40 07/25/16 20:18 102 29 40 07/25/16 20:00 102 07/25/16 20:00 40 07/25/16 20:00 97.5 107 28 95/45 99 Mechanical Ventilator 40 07/25/16 19:00 99 32 40 07/25/16 17:51 99 122/56 07/25/16 16:49 99 29 40 07/25/16 16:00 100 07/25/16 16:00 97.7 104 34 105/58 96 Mechanical Ventilator 40 07/25/16 16:00 40 5/3/17 14:30 96 27 40 07/25/16 12:54 97.2 93 26 122/56 92 Mechanical Ventilator 40 07/25/16 12:52 98 31 40 07/25/16 12:00 40 07/25/16 12:00 93 122/56 Intake and Output 07/25/16 07/26/16 19:00 07:00 Intake Total 655 ml 1110 ml Output Total 1150 ml 500 ml Balance -495 ml 610 ml Free Water 150 ml 100 ml IV Total 100 ml 605 ml Tube Feeding 405 ml 405 ml Output Urine Total 100 ml 50 ml Other 1050 ml 450 ml # Bowel Movements 1 Laboratory Tests 07/25/16 16:15: White Blood Count 12.3H, Red Blood Count 3.16L, Hemoglobin 9.2L, Hematocrit 27.7L, Mean Corpuscular Volume 88, Mean Corpuscular Hemoglobin 29.1, Mean Corpuscular Hemoglobin Concent 33.2, Red Cell Distribution Width 17.4H, Platelet Count 217, Mean Platelet Volume 7.1, Neutrophils (%) (Auto) , Lymphocytes (%) (Auto) , Monocytes (%) (Auto) , Eosinophils (%) (Auto) , Basophils (%) (Auto) , Differential Total Cells Counted 100, Neutrophils % ( Manual) 69, Lymphocytes % (Manual) 12L, Monocytes % (Manual) 4, Eosinophils % ( Manual) 0, Basophils % (Manual) 0, Band Neutrophils 15H, Nucleated Red Blood Cells 1, Platelet Estimate Adequate, Platelet Morphology Normal, Hypochromasia 1 +, Anisocytosis 1+, Prothrombin Time 24.0H, Prothromb Time International Ratio 2.3H, Activated Partial Thromboplast Time 42H, Sodium Level 140, Potassium Level 3.9, Chloride Level 102, Carbon Dioxide Level 17L, Anion Gap 21H, Blood Urea Nitrogen 40H, Creatinine 1.6H, Estimat Glomerular Filtration Rate 40.1, Glucose Level 163H, Calcium Level 7.9L 07/25/16 21:00: Prothrombin Time 22.7H, Prothromb Time International Ratio 2.2H, Reticulocyte Count 0.7, Haptoglobin 205H, Fibrinogen 650H, D-Dimer 990H, Ferritin 1909H, Total Bilirubin 0.3, HIV (1&2) Antibody Rapid Negative 07/26/16 05:15: White Blood Count 9.6, Red Blood Count 2.74L, Hemoglobin 7.3L, Hematocrit 23.7L , Mean Corpuscular Volume 87, Mean Corpuscular Hemoglobin 26.7L, Mean Corpuscular Hemoglobin Concent 30.8L, Red Cell Distribution Width 18.5H, Platelet Count 179, Mean Platelet Volume 10.9H, Neutrophils (%) (Auto) , Lymphocytes (%) (Auto) , Monocytes (%) (Auto) , Eosinophils (%) (Auto) , Basophils (%) (Auto) , Differential Total Cells Counted 100, Neutrophils % ( Manual) 88H, Lymphocytes % (Manual) 9L, Monocytes % (Manual) 2, Eosinophils % ( Manual) 1, Basophils % (Manual) 0, Band Neutrophils 0, Platelet Estimate Adequate, Platelet Morphology Normal, Hypochromasia 3+, Anisocytosis 2+, Prothrombin Time 18.1H, Prothromb Time International Ratio 1.7H, Activated Partial Thromboplast Time 39H, Sodium Level 139, Potassium Level 3.2L, Chloride Level 102, Carbon Dioxide Level 18L, Anion Gap 19H, Blood Urea Nitrogen 43H, Creatinine 1.6H, Estimat Glomerular Filtration Rate 40.1, Glucose Level 183H, Calcium Level 8.5L, Random Vancomycin Level 34.0 Height (Feet): 5 Height (Inches): 6.00 Weight (Pounds): 194 Objective debilitated AA woman NCAT (+) trach CTA RRR obese soft abd, (+) GJ Tube OBS LISA BALL July 26, 2016 11:50
--- NOTE | 2016-07-26 12:57 | Infectious Diseases Prog Note ---
Assessment/Plan Assessment/Plan A: Hypotension, shock MRSA sepsis Infected pressure ulcer pneumonia with Acinetobacter & Providencia VDRF Encephalopathy Left hydronephrosis Fecal impaction Acute renal failure P; Continue Vancomycin , Cefepime & Flagyl repeat CXR, urine culture & blood culture Subjective ROS Limited/Unobtainable: Yes Cardiovascular: Reports: other - hypotensive Genitourinary: Reports: other - oliguric Hematologic: Reports: other - anemic, receiving blood transfusion Allergies: Coded Allergies: SULFA (SULFONAMIDE ANTIBIOTICS) (Verified Allergy, Intermediate, 02/07/16) Objective Vital Signs Last 24 Hour Vital Signs Date Time Temp Pulse Resp B/P Pulse Ox O2 Delivery O2 Flow Rate FiO2 07/26/16 12:14 97.4 102 22 54/30 90 Mechanical Ventilator 40 07/26/16 12:00 58/30 07/26/16 11:02 99 27 40 07/26/16 08:49 98 25 40 07/26/16 08:00 96.0 98 23 97/52 98 Mechanical Ventilator 40 07/26/16 08:00 96.0 106 23 97/52 98 Mechanical Ventilator 40 07/26/16 06:43 99 25 40 07/26/16 06:00 99 91/47 07/26/16 05:25 99 31 40 07/26/16 04:00 96 07/26/16 04:00 95.5 100 28 91/47 99 Mechanical Ventilator 40 07/26/16 04:00 40 07/26/16 03:10 102 28 40 07/26/16 01:17 101 26 40 07/26/16 00:00 101 07/26/16 00:00 96.4 108 28 82/53 99 Mechanical Ventilator 40 07/26/16 00:00 40 07/26/16 00:00 107 95/48 07/25/16 23:03 103 26 40 07/25/16 21:00 102 28 40 07/25/16 20:18 102 29 40 07/25/16 20:00 102 07/25/16 20:00 40 07/25/16 20:00 97.5 107 28 95/45 99 Mechanical Ventilator 40 07/25/16 19:00 99 32 40 07/25/16 17:51 99 122/56 07/25/16 16:49 99 29 40 07/25/16 16:00 100 07/25/16 16:00 97.7 104 34 105/58 96 Mechanical Ventilator 40 07/25/16 16:00 40 07/25/16 14:30 96 27 40 07/25/16 12:54 97.2 93 26 122/56 92 Mechanical Ventilator 40 Height (Feet): 5 Height (Inches): 6.00 Weight (Pounds): 194 HEENT: status post trach Respiratory/Chest: lungs clear, other - on ventilator Cardiovascular: tachycardia Abdomen: soft, non tender Extremities: other - left arm PICC line, generalized edema Neurologic/Psychiatric: unresponsiveness Laboratory Tests Test 07/25/16 16:15 07/25/16 21:00 07/26/16 05:15 White Blood Count 12.3 K/UL (4.8-10.8) H 9.6 K/UL (4.8-10.8) Red Blood Count 3.16 M/UL (4.20-5.40) L 2.74 M/UL (4.20-5.40) L Hemoglobin 9.2 G/DL (12.0-16.0) L 7.3 G/DL (12.0-16.0) L Hematocrit 27.7 % (37.0-47.0) L 23.7 % (37.0-47.0) L Mean Corpuscular Volume 88 FL (80-99) 87 FL (80-99) Mean Corpuscular Hemoglobin 29.1 PG (27.0-31.0) 26.7 PG (27.0-31.0) L Mean Corpuscular Hemoglobin Concent 33.2 G/DL (32.0-36.0) 30.8 G/DL (32.0-36.0) L Red Cell Distribution Width 17.4 % (11.6-14.8) H 18.5 % (11.6-14.8) H Platelet Count 217 K/UL (150-450) 179 K/UL (150-450) Mean Platelet Volume 7.1 FL (6.5-10.1) 10.9 FL (6.5-10.1) H Neutrophils (%) (Auto) % (45.0-75.0) % (45.0-75.0) Lymphocytes (%) (Auto) % (20.0-45.0) % (20.0-45.0) Monocytes (%) (Auto) % (1.0-10.0) % (1.0-10.0) Eosinophils (%) (Auto) % (0.0-3.0) % (0.0-3.0) Basophils (%) (Auto) % (0.0-2.0) % (0.0-2.0) Differential Total Cells Counted 100 100 Neutrophils % (Manual) 69 % (45-75) 88 % (45-75) H Lymphocytes % (Manual) 12 % (20-45) L 9 % (20-45) L Monocytes % (Manual) 4 % (1-10) 2 % (1-10) Eosinophils % (Manual) 0 % (0-3) 1 % (0-3) Basophils % (Manual) 0 % (0-2) 0 % (0-2) Band Neutrophils 15 % (0-8) H 0 % (0-8) Nucleated Red Blood Cells 1 /100 WBC Platelet Estimate Adequate Adequate Platelet Morphology Normal Normal Hypochromasia 1+ 3+ Anisocytosis 1+ 2+ Prothrombin Time 24.0 SEC (9.30-11.50) H 22.7 SEC (9.30-11.50) H 18.1 SEC (9.30-11.50) H Prothromb Time International Ratio 2.3 (0.9-1.1) H 2.2 (0.9-1.1) H 1.7 (0.9-1.1) H Activated Partial Thromboplast Time 42 SEC (23-33) H 39 SEC (23-33) H Sodium Level 140 mEQ/L (135-145) 139 mEQ/L (135-145) Potassium Level 3.9 mEQ/L (3.4-4.9) 3.2 mEQ/L (3.4-4.9) L Chloride Level 102 mEQ/L (98-107) 102 mEQ/L (98-107) Carbon Dioxide Level 17 mEQ/L (20-30) L 18 mEQ/L (20-30) L Anion Gap 21 (5-15) H 19 (5-15) H Blood Urea Nitrogen 40 mg/dL (7-23) H 43 mg/dL (7-23) H Creatinine 1.6 mg/dL (0.5-0.9) H 1.6 mg/dL (0.5-0.9) H Estimat Glomerular Filtration Rate 40.1 mL/min (>60) 40.1 mL/min (>60) Glucose Level 163 mg/dL (74-106) H 183 mg/dL (74-106) H Calcium Level 7.9 mg/dL (8.6-10.2) L 8.5 mg/dL (8.6-10.2) L Reticulocyte Count 0.7 % (0.0-2.0) Haptoglobin 205 mg/dL (30-200) H Fibrinogen 650 mg/dL (200-400) H D-Dimer 990 ng/mL (<500) H Ferritin 1909 ng/mL (13-150) H Total Bilirubin 0.3 mg/dL (0.0-1.2) HIV (1&2) Antibody Rapid Negative (NEGATIVE) Random Vancomycin Level 34.0 ug/mL Current Medications Medications (Trade) Dose Ordered Sig/Daljit Route PRN Reason Start Time Stop Time Status Last Admin Dose Admin Ascorbic Acid (Vitamin C) 500 mg DAILY GT 07/18/16 09:00 08/17/16 08:59 07/26/16 10:28 Atorvastatin Calcium (Lipitor) 10 mg BEDTIME GT 07/17/16 21:00 08/16/16 20:59 07/25/16 22:27 Cefepime HCl/ Dextrose (Maxipime/D5W) 55 ml @ 110 mls/hr EVERY 12 HOURS IVPB 07/25/16 21:00 08/01/16 23:59 07/26/16 09:00 Diltiazem HCl (Cardizem) 60 mg Q6HR GT 07/18/16 00:00 08/17/16 00:00 07/25/16 00:21 Lansoprazole 30 mg 30 mg DAILY GT 07/18/16 09:00 08/17/16 08:59 07/26/16 10:28 Magnesium Hydroxide (Mom) 30 ml DAILY GT 07/18/16 09:00 08/17/16 08:59 07/26/16 10:28 Metoclopramide HCl (Reglan) 5 mg Q6HR IVP 07/18/16 00:00 08/17/16 00:00 07/26/16 06:37 Metronidazole 500 mg 500 mg EVERY 8 HOURS ORAL 07/25/16 14:00 08/01/16 23:59 07/26/16 06:37 Sodium Chloride (Sodium Chloride 1000ml bag) 1,000 ml @ 100 mls/hr Q10H IV 07/25/16 19:00 08/24/16 18:59 07/26/16 04:30 Vancomycin HCl (Vanco rx to dose) 1 ea DAILY PRN MISC Per rx protocol 07/17/16 19:30 08/16/16 19:29 Zinc Sulfate (Zinc Sulfate) 220 mg DAILY GT 07/18/16 09:00 08/17/16 08:59 07/26/16 10:28 KAIDEN MOHAN July 26, 2016 12:57
--- NOTE | 2016-07-26 14:44 | Diagnostic Imaging Report ---
Indications: Shortness of breath Technique: Portable AP chest Findings: Comparison: 07/14/16 Cardiomegaly, pulmonary vascular redistribution, bilateral interstitial infiltrates, bibasal pleural effusions, left retrocardiac consolidation persists, unchanged. Lines and tubes remain in place. No new abnormality identified. IMPRESSION: Bilateral congestive changes, persistent versus recurrent since previous exam Left retrocardiac opacification--atelectasis versus pneumonia, persistent versus recurrent
[2016-07-26] MEDS ORDERED: Levophed 4mg/4mL Inj IV ONE (19:36)
[2016-07-26] MEDS: Hydrocortisone 100mg Inj IV SCH (21:58)
[2016-07-26] MEDS: Phenylephrine 50 MG in D5W 245 ML IV SCH (22:23)
[2016-07-27] VITALS (75 sets, daily range): BP systolic 47–113; BP diastolic 17–93
[2016-07-27] MEDS: Metoclopramide 10mg/2ml Inj IVP SCH ×4 (00:07→18:03)
[2016-07-27] MEDS ORDERED: Phenylephrine 10mg/ml 5ml vial IV ONE (01:39)
[2016-07-27 05:31] LABS: MEAN CORPUSCULAR VOLUME 88 FL (80-99); MEAN PLATELET VOLUME 10.5 FL (6.5-10.1); PLATELET COUNT 208 K/UL (150-450); RED BLOOD COUNT 3.89 M/UL (4.20-5.40); RED CELL DISTRIBUTION WIDTH 16.6 % (11.6-14.8); WHITE BLOOD COUNT 19.4 K/UL (4.8-10.8)
[2016-07-27 05:38] LABS: INR 2.2 (0.9-1.1); PROTHROMBIN TIME 22.5 SEC (9.30-11.50)
[2016-07-27] MEDS: metroNIDAZOLE 500mg tab ORAL SCH ×3 (05:54→22:00)
[2016-07-27] MEDS: Phenylephrine 50 MG in D5W 245 ML IV SCH ×5 (05:57→23:31)
[2016-07-27] MEDS: Hydrocortisone 100mg Inj IV SCH ×3 (05:57→21:59)
[2016-07-27 06:04] LABS: CREATININE 1.4 mg/dL (0.5-0.9); GLOMERULAR FILTRATION RATE 46.9 mL/min (>60)
--- NOTE | 2016-07-27 08:18 | General Progress Note ---
Assessment/Plan Assessment/Plan IMPRESSION: 1. Sepsis. with shock 2. Respiratory failure. 3. Tracheostomy. 4. Metabolic acidosis. 5. Severe protein-calorie malnutrition. 6. Evidence of hypoxemia. 7. Leukocytosis. 8. Anemia of unclear etiology. 9. reduced K 10. MRSA bacteremia 11. tachycardia 12. coagulopathy 13. anemia PLAN care noted IV antibiotics per ID WBC still elevated monitor lytes; pressors GI follow up; on feeds as tolerated follow up labs rate control very ill; prognosis poor d/w daughter heme appreciated Subjective ROS Limited/Unobtainable: Yes Allergies: Coded Allergies: SULFA (SULFONAMIDE ANTIBIOTICS) (Verified Allergy, Intermediate, 02/07/16) Subjective care noted hypotensive overnight doing poorly on 2 pressors d/w daughter; reviewed care in detail Objective Last 24 Hour Vital Signs Date Time Temp Pulse Resp B/P Pulse Ox O2 Delivery O2 Flow Rate FiO2 07/27/16 08:00 99 07/27/16 08:00 50 07/27/16 07:25 100 21 50 07/27/16 07:00 102 25 60/43 96 Mechanical Ventilator 50 07/27/16 06:45 101 25 59/40 96 Mechanical Ventilator 50 07/27/16 06:30 101 25 62/42 96 Mechanical Ventilator 50 07/27/16 06:15 102 23 59/44 97 Mechanical Ventilator 50 07/27/16 06:00 103 23 55/45 96 Mechanical Ventilator 50 07/27/16 05:57 102 80/41 07/27/16 05:54 102 80/41 07/27/16 05:45 103 24 47/17 96 Mechanical Ventilator 50 07/27/16 05:30 105 25 84/65 94 Mechanical Ventilator 50 07/27/16 05:15 107 28 79/29 94 Mechanical Ventilator 50 07/27/16 05:00 118 28 95/69 93 Mechanical Ventilator 50 07/27/16 04:55 117 24 50 07/27/16 04:45 112 24 75/37 97 Mechanical Ventilator 50 07/27/16 04:30 102 24 70/17 98 Mechanical Ventilator 50 07/27/16 04:15 104 25 70/17 97 Mechanical Ventilator 50 07/27/16 04:00 102 07/27/16 04:00 105 07/27/16 04:00 50 07/27/16 04:00 97.0 102 25 67/33 97 Mechanical Ventilator 50 5/5/17 03:45 103 26 64/42 97 Mechanical Ventilator 50 5/5/17 03:30 104 26 67/45 97 Mechanical Ventilator 50 5/5/17 03:15 105 27 65/44 97 Mechanical Ventilator 50 5/5/17 03:00 105 25 62/38 97 Mechanical Ventilator 50 5/5/17 02:50 104 24 50 5/5/17 02:45 105 26 67/43 98 Mechanical Ventilator 50 5/5/17 02:30 105 26 67/43 97 Mechanical Ventilator 50 5/5/17 02:15 104 25 64/36 97 Mechanical Ventilator 50 5/5/17 02:00 104 26 80/50 97 Mechanical Ventilator 50 5/5/17 01:45 104 28 70/45 97 Mechanical Ventilator 50 5/5/17 01:36 71/48 5/5/17 01:30 102 28 79/45 97 Mechanical Ventilator 50 5/5/17 01:15 103 28 72/44 97 Mechanical Ventilator 50 5/5/17 01:00 104 28 72/44 97 Mechanical Ventilator 50 5/5/17 00:58 104 28 50 5/5/17 00:45 104 30 66/49 97 Mechanical Ventilator 50 5/5/17 00:30 105 31 65/41 97 Mechanical Ventilator 50 5/5/17 00:15 106 32 68/45 96 Mechanical Ventilator 50 5/5/17 00:00 97.5 108 32 66/50 97 Mechanical Ventilator 50 5/5/17 00:00 104 5/5/17 00:00 70/22 5/5/17 00:00 50 5/4/17 23:51 107 67/45 5/4/17 23:45 108 29 66/30 96 Mechanical Ventilator 50 5/4/17 23:30 109 28 66/50 97 Mechanical Ventilator 50 5/4/17 23:15 109 27 66/50 97 Mechanical Ventilator 50 5/4/17 23:00 64/14 5/4/17 23:00 109 27 64/14 97 Mechanical Ventilator 50 5/4/17 22:45 110 28 59/45 97 Mechanical Ventilator 50 5/4/17 22:36 115 26 50 5/4/17 22:30 111 28 67/28 97 Mechanical Ventilator 50 5/4/17 22:23 110 54/20 5/4/17 22:15 111 28 54/20 96 Mechanical Ventilator 50 5/4/17 22:00 54/20 5/4/17 22:00 110 27 54/20 96 Mechanical Ventilator 50 5/4/17 21:45 110 27 71/42 97 Mechanical Ventilator 50 5/4/17 21:30 111 28 68/38 97 Mechanical Ventilator 50 5/4/17 21:15 108 27 69/41 97 Mechanical Ventilator 50 5/4/17 21:00 65/51 5/4/17 21:00 108 28 65/51 97 Mechanical Ventilator 50 5/4/17 20:53 105 24 50 5/4/17 20:45 107 26 76/44 97 Mechanical Ventilator 50 5/4/17 20:30 106 26 68/41 98 Mechanical Ventilator 50 5/4/17 20:15 105 25 34/16 98 Mechanical Ventilator 50 5/4/17 20:00 50 5/4/17 20:00 97.5 106 25 52/16 99 Mechanical Ventilator 50 5/4/17 20:00 110 54/17 20:00 52/16 5/17 19:45 48/24 5/17 19:45 107 26 76/44 97 Mechanical Ventilator 50 5/4/17 19:30 105 26 48/24 99 Mechanical Ventilator 50 5/4/17 19:15 105 24 48/24 100 Mechanical Ventilator 50 5/4/17 19:00 104 25 68/28 99 Mechanical Ventilator 50 5/4/17 18:40 97 20 50 5/4/17 17:22 104 54/37 5/4/17 16:48 104 21 50 5/4/17 16:43 97.6 102 25 54/37 97 Mechanical Ventilator 50 5/4/17 16:00 4.0 50 5/4/17 16:00 4.0 50 5/4/17 16:00 102 5/4/17 15:56 97.6 106 26 68/44 95 Mechanical Ventilator 50 5/4/17 15:18 101 26 50 5/4/17 12:30 105 25 50 5/4/17 12:14 97.4 102 22 54/30 90 Mechanical Ventilator 40 5/4/17 12:00 104 5/4/17 12:00 58/30 54/17 12:00 4.0 40 5/4/17 11:02 99 27 40 5/4/17 08:49 98 25 40 Intake and Output 07/26/16 07/27/16 19:00 07:00 Intake Total 1710 ml 1935.05 ml Output Total 50 ml 480 ml Balance 1660 ml 1455.05 ml IV Total 1000 ml 1935.05 ml Tube Feeding 0 ml Blood Product 710 ml Output Urine Total 50 ml 120 ml Gastric Drainage Total 360 ml # Bowel Movements 1 1 Laboratory Tests 07/27/16 04:15: White Blood Count 19.4#H, Red Blood Count 3.89L, Hemoglobin 11.3#L, Hematocrit 34.2#L, Mean Corpuscular Volume 88, Mean Corpuscular Hemoglobin 29.0, Mean Corpuscular Hemoglobin Concent 33.0, Red Cell Distribution Width 16.6H, Platelet Count 208, Mean Platelet Volume 10.5H, Neutrophils (%) (Auto) , Lymphocytes (%) (Auto) , Monocytes (%) (Auto) , Eosinophils (%) (Auto) , Basophils (%) (Auto) , Neutrophils % (Manual) [Pending], Lymphocytes % (Manual) [Pending], Platelet Estimate [Pending], Platelet Morphology [Pending], Prothrombin Time 22.5H, Prothromb Time International Ratio 2.2H, Sodium Level 142, Potassium Level 5.0#H, Chloride Level 107, Carbon Dioxide Level 13L, Anion Gap 22H, Blood Urea Nitrogen 41H, Creatinine 1.4H, Estimat Glomerular Filtration Rate 46.9, Glucose Level 107H, Calcium Level 8.0L Height (Feet): 5 Height (Inches): 6.00 Weight (Pounds): 194 Objective GENERAL: The patient is ill appearing female, chronically ill, older than her stated age. HEENT: Tracheostomy is in midline. NECK: Supple. LUNGS: Coarse breath sounds. symmetric without change CARDIAC: S1 and S2. Tachycardia ABDOMEN: Soft. G-tube. EXTREMITIES: Significant contractures overall. significant edema poor loc MARIO ARIAS July 27, 2016 08:18
[2016-07-27] MEDS: Milk of Magnesia 30ml Ud GT SCH (08:30)
[2016-07-27] MEDS: Ascorbic Acid 500mg tab GT SCH (08:30)
[2016-07-27] MEDS: Zinc Sulfate 220mg cap GT SCH (08:30)
[2016-07-27] MEDS: Cefepime HCl 1 GM in D5W 55 ML IVPB SCH ×2 (09:00→21:59)
[2016-07-27 11:43] LABS: ANISOCYTOSIS 1+; BAND NEUTROPHILS % (MANUAL) 9 % (0-8); BASOPHILS % (MANUAL) 0 % (0-2); EOSINOPHILS % (MANUAL) 0 % (0-3); HYPOCHROMASIA 1+; LYMPHOCYTES % (MANUAL) 10 % (20-45); NEUTROPHILS % (MANUAL) 77 % (45-75); NUCLEATED RED BLOOD CELLS 4 /100 WBC; PLATELET ESTIMATE ADEQUATE; PLATELET MORPHOLOGY NORMAL; TOTAL CELLS COUNTED 100
--- NOTE | 2016-07-27 12:55 | Diagnostic Imaging Report ---
Indication:Abdominal pain Technique: Grayscale and duplex Doppler imaging of the abdomen performed. Comparison: None Findings: The examination was significantly limited by bowel gas. The liver is enlarged measuring about 18 cm. Color-flow measures of the main portal vein show patency. The pancreas was not seen well. Aorta was also not seen well. No gross abnormalities of either kidney demonstrated. There is no hydronephrosis. The gallbladder is not visualized. No biliary ductal patient is seen. CBD is 6 mm. No obvious splenomegaly identified. There is no free fluid. No biliary ductal dilatation is seen. Impression: No acute findings demonstrated on this very limited study. Hepatomegaly noted. Apparent cholecystectomy.
[2016-07-27] MEDS ORDERED: Sterile Water Irrig 1000ml IRRIG ONE (15:35)
[2016-07-27] MEDS ORDERED: Tubing Blood Filter IV ONE (15:35)
[2016-07-27] MEDS ORDERED: NS Irrig 1000ml ONE (15:35)
[2016-07-27] MEDS ORDERED: NS 275ml ONE (15:35)
[2016-07-27] MEDS ORDERED: D5W 275ml ONE (15:45)
[2016-07-27] MEDS ORDERED: Tubing IV Secondary IV ONE (15:45)
--- NOTE | 2016-07-27 17:06 | General Progress Note ---
Assessment/Plan Status Narrative ASSESSMENT AND RECS: # Coagulopathy, profound - is likely multifactorial, given both elevation of PT and PTT means that there is global factor deficiency and problem with both extrinsic and intrinsic pathways --> most likely is related to vitamin K deficiency and malnutrition. No evidence for cirrhosis and no DIC either # Anemia secondary to gi bleed - OB (+) - has been evaluted by Gi, current h/h is stable # Leukocytosis - secondary to infection, now improved # Respiratory failure s/p vent/trach # Gastroparesis / TF intolerance # s/p G --> J conversion # Resp failure / trach # Dysphagia / GT # TF intolerance # Rectal stool impaction # Thank you Dr. Bartolome Lynch for this kind referral. Subjective Constitutional: Reports: no symptoms HEENT: Reports: no symptoms Cardiovascular: Reports: no symptoms Respiratory: Reports: no symptoms Gastrointestinal/Abdominal: Reports: poor appetite Genitourinary: Reports: no symptoms Neurologic/Psychiatric: Reports: no symptoms Endocrine: Reports: no symptoms Hematologic/Lymphatic: Reports: anemia Allergies: Coded Allergies: SULFA (SULFONAMIDE ANTIBIOTICS) (Verified Allergy, Intermediate, 02/07/16) Subjective stable, no fevers or chills reported Objective Last 24 Hour Vital Signs Date Time Temp Pulse Resp B/P Pulse Ox O2 Delivery O2 Flow Rate FiO2 07/27/16 16:00 50 07/27/16 16:00 104 07/27/16 15:25 102 23 50 07/27/16 15:00 103 22 62/43 96 Mechanical Ventilator 50 07/27/16 14:23 100 49/13 07/27/16 14:00 49/13 07/27/16 14:00 104 22 55/42 96 Mechanical Ventilator 50 07/27/16 13:00 104 22 52/39 96 Mechanical Ventilator 50 07/27/16 12:34 102 23 50 07/27/16 12:00 95.6 103 22 48/32 96 Mechanical Ventilator 50 07/27/16 12:00 102 07/27/16 12:00 105 65/43 07/27/16 12:00 50 07/27/16 11:46 103 24 50 07/27/16 11:45 103 22 60/50 96 Mechanical Ventilator 50 07/27/16 11:30 104 22 62/50 96 Mechanical Ventilator 50 07/27/16 11:15 103 22 60/50 96 Mechanical Ventilator 50 5/5/17 11:00 102 22 64/43 96 Mechanical Ventilator 50 5/5/17 10:45 102 22 68/42 96 Mechanical Ventilator 50 5/5/17 10:30 102 22 61/50 96 Mechanical Ventilator 50 5/5/17 10:15 101 22 68/44 97 Mechanical Ventilator 50 5/5/17 10:00 101 22 61/28 97 Mechanical Ventilator 50 5/5/17 09:45 101 22 61/40 96 Mechanical Ventilator 50 5/5/17 09:30 102 24 58/22 95 Mechanical Ventilator 50 5/5/17 09:15 116 25 64/44 97 Mechanical Ventilator 50 5/5/17 09:01 62/41 5/5/17 09:00 98 62/41 5/5/17 09:00 99 25 64/74 96 Mechanical Ventilator 50 5/5/17 08:59 100 20 50 5/5/17 08:45 98 20 62/43 96 Mechanical Ventilator 50 5/5/17 08:30 98 21 62/41 96 Mechanical Ventilator 50 5/5/17 08:15 98 21 65/42 96 Mechanical Ventilator 50 5/5/17 08:00 99 5/5/17 08:00 50 5/5/17 08:00 96.0 99 22 68/47 96 Mechanical Ventilator 50 5/5/17 07:45 101 23 61/43 96 Mechanical Ventilator 50 5/5/17 07:30 101 23 61/45 96 Mechanical Ventilator 50 5/5/17 07:25 100 21 50 5/5/17 07:15 102 23 65/93 96 Mechanical Ventilator 50 5/5/17 07:00 102 25 60/43 96 Mechanical Ventilator 50 5/5/17 06:45 101 25 59/40 96 Mechanical Ventilator 50 5/5/17 06:30 101 25 62/42 96 Mechanical Ventilator 50 5/5/17 06:15 102 23 59/44 97 Mechanical Ventilator 50 5/5/17 06:00 103 23 55/45 96 Mechanical Ventilator 50 5/5/17 05:57 102 80/41 5/5/17 05:54 102 80/41 5/5/17 05:45 103 24 47/17 96 Mechanical Ventilator 50 5/5/17 05:30 105 25 84/65 94 Mechanical Ventilator 50 5/5/17 05:15 107 28 79/29 94 Mechanical Ventilator 50 5/5/17 05:00 118 28 95/69 93 Mechanical Ventilator 50 5/5/17 04:55 117 24 50 5/5/17 04:45 112 24 75/37 97 Mechanical Ventilator 50 5/5/17 04:30 102 24 70/17 98 Mechanical Ventilator 50 5/5/17 04:15 104 25 70/17 97 Mechanical Ventilator 50 5/5/17 04:00 102 5/5/17 04:00 105 5/5/17 04:00 50 5/5/17 04:00 97.0 102 25 67/33 97 Mechanical Ventilator 50 5/5/17 03:45 103 26 64/42 97 Mechanical Ventilator 50 5/5/17 03:30 104 26 67/45 97 Mechanical Ventilator 50 5/5/17 03:15 105 27 65/44 97 Mechanical Ventilator 50 5/5/17 03:00 105 25 62/38 97 Mechanical Ventilator 50 5/5/17 02:50 104 24 50 5/5/17 02:45 105 26 67/43 98 Mechanical Ventilator 50 5/5/17 02:30 105 26 67/43 97 Mechanical Ventilator 50 5/5/17 02:15 104 25 64/36 97 Mechanical Ventilator 50 5/5/17 02:00 104 26 80/50 97 Mechanical Ventilator 50 5/5/17 01:45 104 28 70/45 97 Mechanical Ventilator 50 5/5/17 01:36 71/48 5/5/17 01:30 102 28 79/45 97 Mechanical Ventilator 50 5/5/17 01:15 103 28 72/44 97 Mechanical Ventilator 50 5/5/17 01:00 104 28 72/44 97 Mechanical Ventilator 50 5/5/17 00:58 104 28 50 5/5/17 00:45 104 30 66/49 97 Mechanical Ventilator 50 5/5/17 00:30 105 31 65/41 97 Mechanical Ventilator 50 5/5/17 00:15 106 32 68/45 96 Mechanical Ventilator 50 5/5/17 00:00 97.5 108 32 66/50 97 Mechanical Ventilator 50 5/5/17 00:00 104 5/5/17 00:00 70/22 5/5/17 00:00 50 5/4/17 23:51 107 67/45 5/4/17 23:45 108 29 66/30 96 Mechanical Ventilator 50 5/07/09 23:30 109 28 66/50 97 Mechanical Ventilator 50 5/4/17 23:15 109 27 66/50 97 Mechanical Ventilator 50 5 23:00 64/14 17 23:00 109 27 64/14 97 Mechanical Ventilator 50 5/17 22:45 110 28 59/45 97 Mechanical Ventilator 50 5/17 22:36 115 26 50 07/26/17 22:30 111 28 67/28 97 Mechanical Ventilator 50 517 22:23 110 54/20 5/17 22:15 111 28 54/20 96 Mechanical Ventilator 50 5 22:00 54/20 07/26/17 22:00 110 27 54/20 96 Mechanical Ventilator 50 17 21:45 110 27 71/42 97 Mechanical Ventilator 50 5 21:30 111 28 68/38 97 Mechanical Ventilator 50 5/ 21:15 108 27 69/41 97 Mechanical Ventilator 50 5 21:00 65/51 5/17 21:00 108 28 65/51 97 Mechanical Ventilator 50 5 20:53 105 24 50 07/26/17 20:45 107 26 76/44 97 Mechanical Ventilator 50 07/26/17 20:30 106 26 68/41 98 Mechanical Ventilator 50 07/26/16 20:15 105 25 34/16 98 Mechanical Ventilator 50 07/26/16 20:00 50 07/26/16 20:00 97.5 106 25 52/16 99 Mechanical Ventilator 50 17 20:00 110 07/26/16 20:00 52/16 07/26/16 19:45 48/24 07/26/16 19:45 107 26 76/44 97 Mechanical Ventilator 50 17 19:30 105 26 48/24 99 Mechanical Ventilator 50 07/26/17 19:15 105 24 48/24 100 Mechanical Ventilator 50 07/26/16 19:00 104 25 68/28 99 Mechanical Ventilator 50 07/26/16 18:40 97 20 50 5/17 17:22 104 54/37 Intake and Output 07/26/16 5 19:00 07:00 Intake Total 1710 ml 1935.05 ml Output Total 50 ml 480 ml Balance 1660 ml 1455.05 ml IV Total 1000 ml 1935.05 ml Tube Feeding 0 ml Blood Product 710 ml Output Urine Total 50 ml 120 ml Gastric Drainage Total 360 ml # Bowel Movements 1 1 Laboratory Tests 07/27/16 04:15: White Blood Count 19.4#H, Red Blood Count 3.89L, Hemoglobin 11.3#L, Hematocrit 34.2#L, Mean Corpuscular Volume 88, Mean Corpuscular Hemoglobin 29.0, Mean Corpuscular Hemoglobin Concent 33.0, Red Cell Distribution Width 16.6H, Platelet Count 208, Mean Platelet Volume 10.5H, Neutrophils (%) (Auto) , Lymphocytes (%) (Auto) , Monocytes (%) (Auto) , Eosinophils (%) (Auto) , Basophils (%) (Auto) , Differential Total Cells Counted 100, Neutrophils % ( Manual) 77H, Lymphocytes % (Manual) 10L, Monocytes % (Manual) 4, Eosinophils % ( Manual) 0, Basophils % (Manual) 0, Band Neutrophils 9H, Nucleated Red Blood Cells 4, Platelet Estimate Adequate, Platelet Morphology Normal, Hypochromasia 1 +, Anisocytosis 1+, Prothrombin Time 22.5H, Prothromb Time International Ratio 2.2H, Sodium Level 142, Potassium Level 5.0#H, Chloride Level 107, Carbon Dioxide Level 13L, Anion Gap 22H, Blood Urea Nitrogen 41H, Creatinine 1.4H, Estimat Glomerular Filtration Rate 46.9, Glucose Level 107H, Calcium Level 8.0L Height (Feet): 5 Height (Inches): 6.00 Weight (Pounds): 194 General Appearance: no apparent distress EENT: pharynx normal Neck: normal alignment Cardiovascular: normal rate Respiratory/Chest: normal breath sounds Abdomen: non tender Extremities: normal range of motion Edema: 1+ Leg (L), 1+ Leg (R) Neurologic: alert Skin: warm/dry Devon Durant July 27, 2016 17:06
--- NOTE | 2016-07-27 18:46 | General Progress Note ---
Assessment/Plan Assessment/Plan Assessment - Gastroparesis / TF intolerance - s/p G --> J conversion, but failing j tube feeds - sepsis / shock - Anemia, OB (+) - coagulopathy - Leukocytosis - Resp failure / trach - dysphagia / GT - rectal stool impaction - hydro vs ureterocele Recommendations - supportive care - prognosis extremely poor - Reglan - monitor CBC - abx - laxatives PRN Subjective Allergies: Coded Allergies: SULFA (SULFONAMIDE ANTIBIOTICS) (Verified Allergy, Intermediate, 02/07/16) Subjective in ICU doing poorly on high dose pressors Objective Last 24 Hour Vital Signs Date Time Temp Pulse Resp B/P Pulse Ox O2 Delivery O2 Flow Rate FiO2 07/27/16 18:00 106 23 60/31 97 Mechanical Ventilator 50 07/27/16 18:00 106 57/22 07/27/16 17:23 108 27 50 07/27/16 17:00 109 22 60/38 96 Mechanical Ventilator 50 07/27/16 16:00 50 07/27/16 16:00 96.0 105 22 57/30 96 Mechanical Ventilator 50 07/27/16 16:00 104 07/27/16 15:25 102 23 50 07/27/16 15:00 103 22 62/43 96 Mechanical Ventilator 50 07/27/16 14:23 100 49/13 07/27/16 14:00 49/13 07/27/16 14:00 104 22 55/42 96 Mechanical Ventilator 50 07/27/16 13:00 104 22 52/39 96 Mechanical Ventilator 50 07/27/16 12:34 102 23 50 07/27/16 12:00 95.6 103 22 48/32 96 Mechanical Ventilator 50 07/27/16 12:00 102 07/27/16 12:00 105 65/43 07/27/16 12:00 50 07/27/16 11:46 103 24 50 07/27/16 11:45 103 22 60/50 96 Mechanical Ventilator 50 07/27/16 11:30 104 22 62/50 96 Mechanical Ventilator 50 07/27/16 11:15 103 22 60/50 96 Mechanical Ventilator 50 07/27/16 11:00 102 22 64/43 96 Mechanical Ventilator 50 07/27/16 10:45 102 22 68/42 96 Mechanical Ventilator 50 07/27/16 10:30 102 22 61/50 96 Mechanical Ventilator 50 5/5/17 10:15 101 22 68/44 97 Mechanical Ventilator 50 5/5/17 10:00 101 22 61/28 97 Mechanical Ventilator 50 5/5/17 09:45 101 22 61/40 96 Mechanical Ventilator 50 5/5/17 09:30 102 24 58/22 95 Mechanical Ventilator 50 5/5/17 09:15 116 25 64/44 97 Mechanical Ventilator 50 5/5/17 09:01 62/41 5/5/17 09:00 98 62/41 5/5/17 09:00 99 25 64/74 96 Mechanical Ventilator 50 5/5/17 08:59 100 20 50 5/5/17 08:45 98 20 62/43 96 Mechanical Ventilator 50 5/5/17 08:30 98 21 62/41 96 Mechanical Ventilator 50 5/5/17 08:15 98 21 65/42 96 Mechanical Ventilator 50 5/5/17 08:00 99 5/5/17 08:00 50 5/5/17 08:00 96.0 99 22 68/47 96 Mechanical Ventilator 50 5/5/17 07:45 101 23 61/43 96 Mechanical Ventilator 50 5/5/17 07:30 101 23 61/45 96 Mechanical Ventilator 50 5/5/17 07:25 100 21 50 5/5/17 07:15 102 23 65/93 96 Mechanical Ventilator 50 5/5/17 07:00 102 25 60/43 96 Mechanical Ventilator 50 5/5/17 06:45 101 25 59/40 96 Mechanical Ventilator 50 5/5/17 06:30 101 25 62/42 96 Mechanical Ventilator 50 5/5/17 06:15 102 23 59/44 97 Mechanical Ventilator 50 5/5/17 06:00 103 23 55/45 96 Mechanical Ventilator 50 5/5/17 05:57 102 80/41 5/5/17 05:54 102 80/41 5/5/17 05:45 103 24 47/17 96 Mechanical Ventilator 50 5/5/17 05:30 105 25 84/65 94 Mechanical Ventilator 50 5/5/17 05:15 107 28 79/29 94 Mechanical Ventilator 50 5/5/17 05:00 118 28 95/69 93 Mechanical Ventilator 50 5/5/17 04:55 117 24 50 5/5/17 04:45 112 24 75/37 97 Mechanical Ventilator 50 5/5/17 04:30 102 24 70/17 98 Mechanical Ventilator 50 5/5/17 04:15 104 25 70/17 97 Mechanical Ventilator 50 5/5/17 04:00 102 5/5/17 04:00 105 5/5/17 04:00 50 5/5/17 04:00 97.0 102 25 67/33 97 Mechanical Ventilator 50 5/5/17 03:45 103 26 64/42 97 Mechanical Ventilator 50 5/5/17 03:30 104 26 67/45 97 Mechanical Ventilator 50 5/5/17 03:15 105 27 65/44 97 Mechanical Ventilator 50 5/5/17 03:00 105 25 62/38 97 Mechanical Ventilator 50 5/5/17 02:50 104 24 50 5/5/17 02:45 105 26 67/43 98 Mechanical Ventilator 50 5/5/17 02:30 105 67/43 97 Mechanical Ventilator 50 5/5/17 02:15 104 25 64/36 97 Mechanical Ventilator 50 5/5/17 02:00 104 26 80/50 97 Mechanical Ventilator 50 5/5/17 01:45 104 28 70/45 97 Mechanical Ventilator 50 5/5/17 01:36 71/48 5/5/17 01:30 102 28 79/45 97 Mechanical Ventilator 50 5/5/17 01:15 103 28 72/44 97 Mechanical Ventilator 50 5/5/17 01:00 104 28 72/44 97 Mechanical Ventilator 50 5/5/17 00:58 104 28 50 5/5/17 00:45 104 30 66/49 97 Mechanical Ventilator 50 5/5/17 00:30 105 31 65/41 97 Mechanical Ventilator 50 5/5/17 00:15 106 32 68/45 96 Mechanical Ventilator 50 5/5/17 00:00 97.5 108 32 66/50 97 Mechanical Ventilator 50 5/5/17 00:00 104 5/5/17 00:00 70/22 5/5/17 00:00 50 5/4/17 23:51 107 67/45 5/4/17 23:45 108 29 66/30 96 Mechanical Ventilator 50 5/4/17 23:30 109 28 66/50 97 Mechanical Ventilator 50 5/4/17 23:15 109 27 66/50 97 Mechanical Ventilator 50 5/4/17 23:00 64/14 5/4/17 23:00 109 27 64/14 97 Mechanical Ventilator 50 5/4/17 22:45 110 28 59/45 97 Mechanical Ventilator 50 07/26/16 22:36 115 26 50 07/26/16 22:30 111 28 67/28 97 Mechanical Ventilator 50 07/26/16 22:23 110 54/20 07/26/16 22:15 111 28 54/20 96 Mechanical Ventilator 50 07/26/16 22:00 54/20 07/26/16 22:00 110 27 54/20 96 Mechanical Ventilator 50 07/26/16 21:45 110 27 71/42 97 Mechanical Ventilator 50 07/26/16 21:30 111 28 68/38 97 Mechanical Ventilator 50 07/26/16 21:15 108 27 69/41 97 Mechanical Ventilator 50 07/26/16 21:00 65/51 07/26/16 21:00 108 28 65/51 97 Mechanical Ventilator 50 07/26/16 20:53 105 24 50 07/26/16 20:45 107 26 76/44 97 Mechanical Ventilator 50 07/26/16 20:30 106 26 68/41 98 Mechanical Ventilator 50 07/26/16 20:15 105 25 34/16 98 Mechanical Ventilator 50 07/26/16 20:00 50 07/26/16 20:00 97.5 106 25 52/16 99 Mechanical Ventilator 50 07/26/16 20:00 110 07/26/16 20:00 52/16 07/26/16 19:45 48/24 07/26/16 19:45 107 26 76/44 97 Mechanical Ventilator 50 07/26/16 19:30 105 26 48/24 99 Mechanical Ventilator 50 07/26/16 19:15 105 24 48/24 100 Mechanical Ventilator 50 07/26/16 19:00 104 25 68/28 99 Mechanical Ventilator 50 Intake and Output 07/26/16 07/27/16 19:00 07:00 Intake Total 1710 ml 1935.05 ml Output Total 50 ml 480 ml Balance 1660 ml 1455.05 ml IV Total 1000 ml 1935.05 ml Tube Feeding 0 ml Blood Product 710 ml Output Urine Total 50 ml 120 ml Gastric Drainage Total 360 ml # Bowel Movements 1 1 Laboratory Tests 07/27/16 04:15: White Blood Count 19.4#H, Red Blood Count 3.89L, Hemoglobin 11.3#L, Hematocrit 34.2#L, Mean Corpuscular Volume 88, Mean Corpuscular Hemoglobin 29.0, Mean Corpuscular Hemoglobin Concent 33.0, Red Cell Distribution Width 16.6H, Platelet Count 208, Mean Platelet Volume 10.5H, Neutrophils (%) (Auto) , Lymphocytes (%) (Auto) , Monocytes (%) (Auto) , Eosinophils (%) (Auto) , Basophils (%) (Auto) , Differential Total Cells Counted 100, Neutrophils % ( Manual) 77H, Lymphocytes % (Manual) 10L, Monocytes % (Manual) 4, Eosinophils % ( Manual) 0, Basophils % (Manual) 0, Band Neutrophils 9H, Nucleated Red Blood Cells 4, Platelet Estimate Adequate, Platelet Morphology Normal, Hypochromasia 1 +, Anisocytosis 1+, Prothrombin Time 22.5H, Prothromb Time International Ratio 2.2H, Sodium Level 142, Potassium Level 5.0#H, Chloride Level 107, Carbon Dioxide Level 13L, Anion Gap 22H, Blood Urea Nitrogen 41H, Creatinine 1.4H, Estimat Glomerular Filtration Rate 46.9, Glucose Level 107H, Calcium Level 8.0L Height (Feet): 5 Height (Inches): 6.00 Weight (Pounds): 194 Objective debilitated AA woman NCAT (+) trach CTA RRR obese soft abd, (+) GJ Tube OBS LISA BALL July 27, 2016 18:46
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
[2016-07-28] VITALS (53 sets, daily range): BP systolic 42–84; BP diastolic 16–50
[2016-07-28] MEDS: Metoclopramide 10mg/2ml Inj IVP SCH ×4 (00:50→18:34)
[2016-07-28] MEDS: Phenylephrine 50 MG in D5W 245 ML IV SCH ×4 (03:01→15:18)
[2016-07-28] MEDS ORDERED: Phenylephrine 10mg/ml 5ml vial IV ONE (06:25)
[2016-07-28] MEDS: metroNIDAZOLE 500mg tab ORAL SCH ×3 (06:32→22:00)
[2016-07-28] MEDS: Hydrocortisone 100mg Inj IV SCH ×3 (06:32→22:00)
--- NOTE | 2016-07-28 09:21 | General Progress Note ---
Assessment/Plan Assessment/Plan IMPRESSION: 1. Sepsis. with shock 2. Respiratory failure. 3. Tracheostomy. 4. Metabolic acidosis. 5. Severe protein-calorie malnutrition. 6. Evidence of hypoxemia. 7. Leukocytosis. 8. Anemia of unclear etiology. 9. reduced K 10. MRSA bacteremia 11. tachycardia 12. coagulopathy 13. anemia PLAN care noted IV antibiotics per ID WBC noted monitor lytes; pressors as is rate control very ill; prognosis poor d/w daughter- still full code terminal Subjective ROS Limited/Unobtainable: Yes Allergies: Coded Allergies: SULFA (SULFONAMIDE ANTIBIOTICS) (Verified Allergy, Intermediate, 02/07/16) Subjective care noted hypotensive overnight doing poorly on 2 pressors and still hypotensive d/w daughter; aware of poor and terminal prognosis she has DPOA and would like to discuss with family Objective Last 24 Hour Vital Signs Date Time Temp Pulse Resp B/P Pulse Ox O2 Delivery O2 Flow Rate FiO2 07/28/16 07:28 58/34 07/28/16 07:15 106 23 50 07/28/16 07:00 59/39 07/28/16 07:00 106 23 59/39 99 Mechanical Ventilator 50 07/28/16 06:45 106 23 57/19 99 Mechanical Ventilator 50 07/28/16 06:31 112 50/34 07/28/16 06:31 59/39 07/28/16 06:30 107 23 51/20 99 Mechanical Ventilator 50 07/28/16 06:15 109 23 50/34 99 Mechanical Ventilator 50 07/28/16 06:00 109 23 50/34 99 Mechanical Ventilator 50 07/28/16 06:00 112 50/34 07/28/16 06:00 50/34 07/28/16 05:47 112 26 50 07/28/16 05:45 111 23 53/31 99 Mechanical Ventilator 50 07/28/16 05:30 115 22 70/45 98 Mechanical Ventilator 50 07/28/16 05:15 110 22 84/50 98 Mechanical Ventilator 50 07/28/16 05:00 84/50 07/28/16 05:00 110 22 84/50 98 Mechanical Ventilator 50 07/28/16 04:45 109 22 73/37 98 Mechanical Ventilator 50 07/28/16 04:30 109 22 72/36 98 Mechanical Ventilator 50 07/28/16 04:15 109 22 77/49 98 Mechanical Ventilator 50 5/6/17 04:00 109 22 77/42 98 Mechanical Ventilator 50 5/6/17 04:00 109 5/6/17 04:00 50 5/6/17 04:00 97.4 5/6/17 04:00 77/42 5/6/17 03:45 109 22 77/42 98 Mechanical Ventilator 50 5/6/17 03:30 109 22 77/42 99 Mechanical Ventilator 50 5/6/17 03:15 111 22 64/41 99 Mechanical Ventilator 50 5/6/17 03:09 114 26 50 5/6/17 03:01 114 69/44 5/6/17 03:01 69/44 5/6/17 03:00 110 22 66/41 99 Mechanical Ventilator 50 5/6/17 02:45 107 22 69/44 98 Mechanical Ventilator 50 5/6/17 02:30 107 22 69/44 98 Mechanical Ventilator 50 5/6/17 02:15 107 22 69/40 98 Mechanical Ventilator 50 5/6/17 02:00 107 22 65/47 98 Mechanical Ventilator 50 5/6/17 02:00 62/47 5/6/17 01:45 107 22 62/47 97 Mechanical Ventilator 50 5/6/17 01:30 108 22 71/39 97 Mechanical Ventilator 50 5/6/17 01:15 108 22 67/42 97 Mechanical Ventilator 50 5/6/17 01:07 108 26 50 5/6/17 01:00 108 22 68/36 97 Mechanical Ventilator 50 5/6/17 01:00 68/36 5/6/17 00:45 107 22 63/45 97 Mechanical Ventilator 50 5/6/17 00:30 107 22 65/30 97 Mechanical Ventilator 50 5/6/17 00:15 107 22 68/30 97 Mechanical Ventilator 50 5/6/17 00:00 108 5/6/17 00:00 97.6 108 24 68/30 97 Mechanical Ventilator 50 5/6/17 00:00 68/36 5/6/17 00:00 50 5/5/17 23:47 107 56/39 5/5/17 23:45 108 24 62/42 97 Mechanical Ventilator 50 5/5/17 23:31 107 56/39 5/5/17 23:30 108 24 59/44 97 Mechanical Ventilator 50 5/5/17 23:15 108 24 56/39 97 Mechanical Ventilator 50 5/5/17 23:11 108 24 50 5/5/17 23:00 109 24 67/35 97 Mechanical Ventilator 50 5/5/17 23:00 67/35 5/5/17 22:45 108 24 62/42 97 Mechanical Ventilator 50 5/5/17 22:31 56/39 5/5/17 22:30 109 24 60/41 97 Mechanical Ventilator 50 5/5/17 22:15 109 23 65/48 97 Mechanical Ventilator 50 5/5/17 22:00 109 23 69/39 97 Mechanical Ventilator 50 5/5/17 21:45 112 23 71/42 97 Mechanical Ventilator 50 5/5/17 21:30 109 23 47/20 97 Mechanical Ventilator 50 5/5/17 21:15 109 23 66/48 97 Mechanical Ventilator 50 5/5/17 21:01 109 25 50 5/5/17 21:00 109 23 113/83 97 Mechanical Ventilator 50 5/5/17 20:45 108 23 66/44 97 Mechanical Ventilator 50 5/5/17 20:30 107 23 56/45 97 Mechanical Ventilator 50 5/5/17 20:15 107 23 83/44 97 Mechanical Ventilator 50 5/5/17 20:05 55 83/44 5/5/17 20:00 107 5/5/17 20:00 97.5 112 23 58/39 97 Mechanical Ventilator 50 5/5/17 20:00 50 5/5/17 19:45 112 23 58/39 97 Mechanical Ventilator 50 5/5/17 19:30 115 23 71/28 97 Mechanical Ventilator 50 5/5/17 19:15 108 23 64/35 97 Mechanical Ventilator 50 5/5/17 19:06 105 26 50 5/5/17 19:01 66/45 5/5/17 19:00 83/44 5/5/17 19:00 106 23 59/33 97 Mechanical Ventilator 50 5/5/17 18:00 106 23 60/31 97 Mechanical Ventilator 50 5/5/17 18:00 106 57/22 5/5/17 17:23 108 27 50 5/5/17 17:00 109 22 60/38 96 Mechanical Ventilator 50 5/5/17 16:00 50 5/5/17 16:00 96.0 105 22 57/30 96 Mechanical Ventilator 50 5/5/17 16:00 104 5/5/17 15:25 102 23 50 07/27/16 15:00 103 22 62/43 96 Mechanical Ventilator 50 07/27/16 14:23 100 49/13 07/27/16 14:00 49/13 07/27/16 14:00 104 22 55/42 96 Mechanical Ventilator 50 07/27/16 13:00 104 22 52/39 96 Mechanical Ventilator 50 07/27/16 12:34 102 23 50 07/27/16 12:00 95.6 103 22 48/32 96 Mechanical Ventilator 50 07/27/16 12:00 102 07/27/16 12:00 105 65/43 07/27/16 12:00 50 07/27/16 11:46 103 24 50 07/27/16 11:45 103 22 60/50 96 Mechanical Ventilator 50 07/27/16 11:30 104 22 62/50 96 Mechanical Ventilator 50 07/27/16 11:15 103 22 60/50 96 Mechanical Ventilator 50 07/27/16 11:00 102 22 64/43 96 Mechanical Ventilator 50 07/27/16 10:45 102 22 68/42 96 Mechanical Ventilator 50 07/27/16 10:30 102 22 61/50 96 Mechanical Ventilator 50 07/27/16 10:15 101 22 68/44 97 Mechanical Ventilator 50 07/27/16 10:00 101 22 61/28 97 Mechanical Ventilator 50 07/27/16 09:45 101 22 61/40 96 Mechanical Ventilator 50 07/27/16 09:30 102 24 58/22 95 Mechanical Ventilator 50 Intake and Output 07/27/16 07/28/16 19:00 07:00 Intake Total 2425.50 ml 2545.00 ml Output Total 425 ml 95 ml Balance 2000.50 ml 2450.00 ml Free Water 50 ml 50 ml IV Total 2315.50 ml 2495.00 ml Other 60 ml Output Urine Total 25 ml 95 ml Gastric Drainage Total 400 ml # Bowel Movements 1 Labs Test 07/25/16 16:15 07/25/16 21:00 07/26/16 05:15 07/27/16 04:15 White Blood Count 12.3 K/UL (4.8-10.8) 9.6 K/UL (4.8-10.8) 19.4 K/UL (4.8-10.8) Red Blood Count 3.16 M/UL (4.20-5.40) 2.74 M/UL (4.20-5.40) 3.89 M/UL (4.20-5.40) Hemoglobin 9.2 G/DL (12.0-16.0) 7.3 G/DL (12.0-16.0) 11.3 G/DL (12.0-16.0) Hematocrit 27.7 % (37.0-47.0) 23.7 % (37.0-47.0) 34.2 % (37.0-47.0) Mean Corpuscular Volume 88 FL (80-99) 87 FL (80-99) 88 FL (80-99) Mean Corpuscular Hemoglobin 29.1 PG (27.0-31.0) 26.7 PG (27.0-31.0) 29.0 PG (27.0-31.0) Mean Corpuscular Hemoglobin Concent 33.2 G/DL (32.0-36.0) 30.8 G/DL (32.0-36.0) 33.0 G/DL (32.0-36.0) Red Cell Distribution Width 17.4 % (11.6-14.8) 18.5 % (11.6-14.8) 16.6 % (11.6-14.8) Platelet Count 217 K/UL (150-450) 179 K/UL (150-450) 208 K/UL (150-450) Mean Platelet Volume 7.1 FL (6.5-10.1) 10.9 FL (6.5-10.1) 10.5 FL (6.5-10.1) Neutrophils (%) (Auto) % (45.0-75.0) % (45.0-75.0) % (45.0-75.0) Lymphocytes (%) (Auto) % (20.0-45.0) % (20.0-45.0) % (20.0-45.0) Monocytes (%) (Auto) % (1.0-10.0) % (1.0-10.0) % (1.0-10.0) Eosinophils (%) (Auto) % (0.0-3.0) % (0.0-3.0) % (0.0-3.0) Basophils (%) (Auto) % (0.0-2.0) % (0.0-2.0) % (0.0-2.0) Differential Total Cells Counted 100 100 100 Neutrophils % (Manual) 69 % (45-75) 88 % (45-75) 77 % (45-75) Lymphocytes % (Manual) 12 % (20-45) 9 % (20-45) 10 % (20-45) Monocytes % (Manual) 4 % (1-10) 2 % (1-10) 4 % (1-10) Eosinophils % (Manual) 0 % (0-3) 1 % (0-3) 0 % (0-3) Basophils % (Manual) 0 % (0-2) 0 % (0-2) 0 % (0-2) Band Neutrophils 15 % (0-8) 0 % (0-8) 9 % (0-8) Nucleated Red Blood Cells 1 /100 WBC 4 /100 WBC Platelet Estimate Adequate Adequate Adequate Platelet Morphology Normal Normal Normal Hypochromasia 1+ 3+ 1+ Anisocytosis 1+ 2+ 1+ Prothrombin Time 24.0 SEC (9.30-11.50) 22.7 SEC (9.30-11.50) 18.1 SEC (9.30-11.50) 22.5 SEC (9.30-11.50) Prothromb Time International Ratio 2.3 (0.9-1.1) 2.2 (0.9-1.1) 1.7 (0.9-1.1) 2.2 (0.9-1.1) Activated Partial Thromboplast Time 42 SEC (23-33) 39 SEC (23-33) Sodium Level 140 mEQ/L (135-145) 139 mEQ/L (135-145) 142 mEQ/L (135-145) Potassium Level 3.9 mEQ/L (3.4-4.9) 3.2 mEQ/L (3.4-4.9) 5.0 mEQ/L (3.4-4.9) Chloride Level 102 mEQ/L (98-107) 102 mEQ/L (98-107) 107 mEQ/L (98-107) Carbon Dioxide Level 17 mEQ/L (20-30) 18 mEQ/L (20-30) 13 mEQ/L (20-30) Anion Gap 21 (5-15) 19 (5-15) 22 (5-15) Blood Urea Nitrogen 40 mg/dL (7-23) 43 mg/dL (7-23) 41 mg/dL (7-23) Creatinine 1.6 mg/dL (0.5-0.9) 1.6 mg/dL (0.5-0.9) 1.4 mg/dL (0.5-0.9) Estimat Glomerular Filtration Rate 40.1 mL/min (>60) 40.1 mL/min (>60) 46.9 mL/min (>60) Glucose Level 163 mg/dL (74-106) 183 mg/dL (74-106) 107 mg/dL (74-106) Calcium Level 7.9 mg/dL (8.6-10.2) 8.5 mg/dL (8.6-10.2) 8.0 mg/dL (8.6-10.2) Reticulocyte Count 0.7 % (0.0-2.0) Haptoglobin 205 mg/dL (30-200) Fibrinogen 650 mg/dL (200-400) D-Dimer 990 ng/mL (<500) Ferritin 1909 ng/mL (13-150) Total Bilirubin 0.3 mg/dL (0.0-1.2) HIV (1&2) Antibody Rapid Negative (NEGATIVE) Random Vancomycin Level 34.0 ug/mL Height (Feet): 5 Height (Inches): 6.00 Weight (Pounds): 194 Objective GENERAL: The patient is ill appearing female, chronically ill, older than her stated age. HEENT: Tracheostomy is in midline. NECK: Supple. LUNGS: Coarse breath sounds. symmetric without change CARDIAC: S1 and S2. Tachycardia ABDOMEN: Soft. G-tube. EXTREMITIES: Significant contractures overall. significant edema poor loc MARIO ARIAS July 28, 2016 09:21
[2016-07-28] MEDS: Zinc Sulfate 220mg cap GT SCH (09:27)
[2016-07-28] MEDS: Milk of Magnesia 30ml Ud GT SCH (09:27)
[2016-07-28] MEDS: Ascorbic Acid 500mg tab GT SCH (09:27)
[2016-07-28] MEDS: Cefepime HCl 1 GM in D5W 55 ML IVPB SCH ×2 (09:28→22:22)
[2016-07-28 10:21] LABS: APPEARANCE,URINE SLIGHTLY CLOUDY; KETONES,URINE 1+ (NEGATIVE); LEUKOCYTE ESTERASE ,URINE 3+ (NEGATIVE); NITRITE,URINE NEGATIVE (NEGATIVE); PH,URINE 5 (4.5-8.0); PROTEIN,URINE 3+ (NEGATIVE); UROBILINOGEN,URINE NORMAL MG/DL (0.0-1.0)
[2016-07-28 10:42] LABS: BACTERIA,URINE FEW /HPF; SQUAMOUS EPITHELIAL CELL,UR FEW /LPF (NONE/OCC); WBC,URINE 20-30 /HPF (0 - 2)
[2016-07-28 10:43] LABS: ICTOTEST NEGATIVE; YEAST,URINE MODERATE /HPF
--- NOTE | 2016-07-28 17:13 | General Progress Note ---
Assessment/Plan Assessment/Plan Assessment - Gastroparesis / TF intolerance - likely secondary to shock - s/p G --> J conversion - sepsis / shock - Anemia, OB (+) - coagulopathy - Leukocytosis - Resp failure / trach - dysphagia / GT - rectal stool impaction - hydro vs ureterocele Recommendations - supportive care - prognosis extremely poor - Reglan - monitor CBC - abx Subjective Allergies: Coded Allergies: SULFA (SULFONAMIDE ANTIBIOTICS) (Verified Allergy, Intermediate, 02/07/16) Subjective in ICU doing poorly on high dose pressors d/w RN Objective Last 24 Hour Vital Signs Date Time Temp Pulse Resp B/P Pulse Ox O2 Delivery O2 Flow Rate FiO2 07/28/16 16:00 97.8 109 20 57/43 98 Mechanical Ventilator 50 07/28/16 16:00 50 07/28/16 15:30 107 23 55/27 98 Mechanical Ventilator 50 07/28/16 15:18 112 53/38 07/28/16 15:10 110 22 50 07/28/16 15:00 110 23 62/31 97 Mechanical Ventilator 50 07/28/16 14:30 106 22 53/16 98 Mechanical Ventilator 50 07/28/16 14:00 107 21 53/35 98 Mechanical Ventilator 50 07/28/16 13:30 107 22 56/24 98 Mechanical Ventilator 50 07/28/16 13:15 107 21 50 07/28/16 13:00 107 21 51/33 99 Mechanical Ventilator 50 07/28/16 12:30 108 23 50/30 97 Mechanical Ventilator 50 07/28/16 12:16 45/23 07/28/16 12:00 109 07/28/16 12:00 50 07/28/16 12:00 110 45/23 07/28/16 12:00 97.8 108 24 45/23 97 Mechanical Ventilator 50 07/28/16 11:30 108 22 59/32 99 Mechanical Ventilator 50 07/28/16 11:15 108 23 50 07/28/16 11:00 112 44/25 07/28/16 11:00 112 22 54/35 99 Mechanical Ventilator 50 07/28/16 10:30 109 24 49/35 98 Mechanical Ventilator 50 07/28/16 10:20 113 24 Mechanical Ventilator 50 07/28/16 10:00 113 25 61/39 98 Mechanical Ventilator 50 07/28/16 09:30 109 22 58/33 100 Mechanical Ventilator 50 5/6/17 09:15 113 24 50 5/6/17 09:00 107 23 56/35 100 Mechanical Ventilator 50 5/6/17 08:30 108 21 51/30 100 Mechanical Ventilator 50 5/6/17 08:00 50 5/6/17 08:00 107 5/6/17 08:00 97.6 109 23 60/29 100 Mechanical Ventilator 50 5/6/17 07:30 107 22 53/17 100 Mechanical Ventilator 50 5/6/17 07:28 58/34 5/6/17 07:15 106 23 50 5/6/17 07:00 59/39 5/6/17 07:00 106 23 59/39 99 Mechanical Ventilator 50 5/6/17 06:45 106 23 57/19 99 Mechanical Ventilator 50 5/6/17 06:31 112 50/34 5/6/17 06:31 59/39 5/6/17 06:30 107 23 51/20 99 Mechanical Ventilator 50 5/6/17 06:15 109 23 50/34 99 Mechanical Ventilator 50 5/6/17 06:00 109 23 50/34 99 Mechanical Ventilator 50 5/6/17 06:00 112 50/34 5/6/17 06:00 50/34 5/6/17 05:47 112 26 50 5/6/17 05:45 111 23 53/31 99 Mechanical Ventilator 50 5/6/17 05:30 115 22 70/45 98 Mechanical Ventilator 50 5/6/17 05:15 110 22 84/50 98 Mechanical Ventilator 50 5/6/17 05:00 84/50 5/6/17 05:00 110 22 84/50 98 Mechanical Ventilator 50 5/6/17 04:45 109 22 73/37 98 Mechanical Ventilator 50 5/6/17 04:30 109 22 72/36 98 Mechanical Ventilator 50 5/6/17 04:15 109 22 77/49 98 Mechanical Ventilator 50 5/6/17 04:00 109 22 77/42 98 Mechanical Ventilator 50 5/6/17 04:00 109 5/6/17 04:00 50 5/6/17 04:00 97.4 5/6/17 04:00 77/42 5/6/17 03:45 109 22 77/42 98 Mechanical Ventilator 50 5/6/17 03:30 109 22 77/42 99 Mechanical Ventilator 50 5/6/17 03:15 111 22 64/41 99 Mechanical Ventilator 50 5/6/17 03:09 114 26 50 5/6/17 03:01 114 69/44 5/6/17 03:01 69/44 5/6/17 03:00 110 22 66/41 99 Mechanical Ventilator 50 5/6/17 02:45 107 22 69/44 98 Mechanical Ventilator 50 5/6/17 02:30 107 22 69/44 98 Mechanical Ventilator 50 5/6/17 02:15 107 22 69/40 98 Mechanical Ventilator 50 5/6/17 02:00 107 22 65/47 98 Mechanical Ventilator 50 5/6/17 02:00 62/47 5/6/17 01:45 107 22 62/47 97 Mechanical Ventilator 50 5/6/17 01:30 108 22 71/39 97 Mechanical Ventilator 50 5/6/17 01:15 108 22 67/42 97 Mechanical Ventilator 50 5/6/17 01:07 108 26 50 5/6/17 01:00 108 22 68/36 97 Mechanical Ventilator 50 5/6/17 01:00 68/36 5/6/17 00:45 107 22 63/45 97 Mechanical Ventilator 50 5/6/17 00:30 107 22 65/30 97 Mechanical Ventilator 50 5/6/17 00:15 107 22 68/30 97 Mechanical Ventilator 50 5/6/17 00:00 108 5/6/17 00:00 97.6 108 24 68/30 97 Mechanical Ventilator 50 5/6/17 00:00 68/36 5/6/17 00:00 50 5/5/17 23:47 107 56/39 5/5/17 23:45 108 24 62/42 97 Mechanical Ventilator 50 5/5/17 23:31 107 56/39 5/5/17 23:30 108 24 59/44 97 Mechanical Ventilator 50 5/5/17 23:15 108 24 56/39 97 Mechanical Ventilator 50 5/5/17 23:11 108 24 50 5/5/17 23:00 109 24 67/35 97 Mechanical Ventilator 50 5/5/17 23:00 67/35 5/5/17 22:45 108 24 62/42 97 Mechanical Ventilator 50 5/5/17 22:31 56/39 5/5/17 22:30 109 24 60/41 97 Mechanical Ventilator 50 5/5/17 22:15 109 23 65/48 97 Mechanical Ventilator 50 07/27/16 22:00 109 23 69/39 97 Mechanical Ventilator 50 07/27/16 21:45 112 23 71/42 97 Mechanical Ventilator 50 07/27/16 21:30 109 23 47/20 97 Mechanical Ventilator 50 07/27/16 21:15 109 23 66/48 97 Mechanical Ventilator 50 07/27/16 21:01 109 25 50 07/27/16 21:00 109 23 113/83 97 Mechanical Ventilator 50 07/27/16 20:45 108 23 66/44 97 Mechanical Ventilator 50 07/27/16 20:30 107 23 56/45 97 Mechanical Ventilator 50 07/27/16 20:15 107 23 83/44 97 Mechanical Ventilator 50 07/27/16 20:05 55 83/44 07/27/16 20:00 107 07/27/16 20:00 97.5 112 23 58/39 97 Mechanical Ventilator 50 07/27/16 20:00 50 07/27/16 19:45 112 23 58/39 97 Mechanical Ventilator 50 07/27/16 19:30 115 23 71/28 97 Mechanical Ventilator 50 07/27/16 19:15 108 23 64/35 97 Mechanical Ventilator 50 07/27/16 19:06 105 26 50 07/27/16 19:01 66/45 07/27/16 19:00 83/44 07/27/16 19:00 106 23 59/33 97 Mechanical Ventilator 50 07/27/16 18:00 106 23 60/31 97 Mechanical Ventilator 50 07/27/16 18:00 106 57/22 07/27/16 17:23 108 27 50 Intake and Output 07/27/16 07/28/16 19:00 07:00 Intake Total 2425.50 ml 2545.00 ml Output Total 425 ml 95 ml Balance 2000.50 ml 2450.00 ml Free Water 50 ml 50 ml IV Total 2315.50 ml 2495.00 ml Other 60 ml Output Urine Total 25 ml 95 ml Gastric Drainage Total 400 ml # Bowel Movements 1 Laboratory Tests 07/28/16 06:00: Urine Color Yellow, Urine Appearance Slightly cloudy, Urine pH 5, Urine Specific [place] 1.020, Urine Protein 3+H, Urine Glucose (UA) Negative, Urine Ketones 1+H, Urine Occult Blood 5+H, Urine Nitrite Negative, Urine Bilirubin 1+H , Urine Ictotest Negative, Urine Urobilinogen Normal, Urine Leukocyte Esterase 3 +H, Urine RBC 5-10H, Urine WBC 20-30H, Urine Squamous Epithelial Cells Few, Urine Bacteria Few, Urine Yeast ModerateH Height (Feet): 5 Height (Inches): 6.00 Weight (Pounds): 194 Objective debilitated AA woman NCAT (+) trach CTA RRR obese soft abd, (+) GJ Tube OBS LISA BALL July 28, 2016 17:13
--- NOTE | 2016-07-28 17:31 | General Progress Note ---
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 No evidence for cirrhosis and no DIC either # Anemia secondary to gi bleed - OB (+) - has been evaluted by Gi, current h/h is stable # Leukocytosis - secondary to infection, now improved # Respiratory failure s/p vent/trach # Gastroparesis / TF intolerance # s/p G --> J conversion # Resp failure / trach # Dysphagia / GT # TF intolerance # Rectal stool impaction Tsering Durant M.D. Subjective Constitutional: Reports: no symptoms HEENT: Reports: no symptoms Cardiovascular: Reports: no symptoms Respiratory: Reports: no symptoms Gastrointestinal/Abdominal: Reports: no symptoms Genitourinary: Reports: no symptoms Neurologic/Psychiatric: Reports: no symptoms Endocrine: Reports: no symptoms Hematologic/Lymphatic: Reports: no symptoms Allergies: Coded Allergies: SULFA (SULFONAMIDE ANTIBIOTICS) (Verified Allergy, Intermediate, 02/07/16) Objective Last 24 Hour Vital Signs Date Time Temp Pulse Resp B/P Pulse Ox O2 Delivery O2 Flow Rate FiO2 07/28/16 16:00 97.8 109 20 57/43 98 Mechanical Ventilator 50 07/28/16 16:00 50 07/28/16 15:30 107 23 55/27 98 Mechanical Ventilator 50 07/28/16 15:18 112 53/38 07/28/16 15:10 110 22 50 07/28/16 15:00 110 23 62/31 97 Mechanical Ventilator 50 07/28/16 14:30 106 22 53/16 98 Mechanical Ventilator 50 07/28/16 14:00 107 21 53/35 98 Mechanical Ventilator 50 07/28/16 13:30 107 22 56/24 98 Mechanical Ventilator 50 07/28/16 13:15 107 21 50 07/28/16 13:00 107 21 51/33 99 Mechanical Ventilator 50 07/28/16 12:30 108 23 50/30 97 Mechanical Ventilator 50 07/28/16 12:16 45/23 07/28/16 12:00 109 07/28/16 12:00 50 07/28/16 12:00 110 45/23 07/28/16 12:00 97.8 108 24 45/23 97 Mechanical Ventilator 50 5/6/17 11:30 108 22 59/32 99 Mechanical Ventilator 50 5/6/17 11:15 108 23 50 5/6/17 11:00 112 44/25 5/6/17 11:00 112 22 54/35 99 Mechanical Ventilator 50 5/6/17 10:30 109 24 49/35 98 Mechanical Ventilator 50 5/6/17 10:20 113 24 Mechanical Ventilator 50 5/6/17 10:00 113 25 61/39 98 Mechanical Ventilator 50 5/6/17 09:30 109 22 58/33 100 Mechanical Ventilator 50 5/6/17 09:15 113 24 50 5/6/17 09:00 107 23 56/35 100 Mechanical Ventilator 50 5/6/17 08:30 108 21 51/30 100 Mechanical Ventilator 50 5/6/17 08:00 50 5/6/17 08:00 107 5/6/17 08:00 97.6 109 23 60/29 100 Mechanical Ventilator 50 5/6/17 07:30 107 22 53/17 100 Mechanical Ventilator 50 5/6/17 07:28 58/34 5/6/17 07:15 106 23 50 5/6/17 07:00 59/39 5/6/17 07:00 106 23 59/39 99 Mechanical Ventilator 50 5/6/17 06:45 106 23 57/19 99 Mechanical Ventilator 50 5/6/17 06:31 112 50/34 5/6/17 06:31 59/39 5/6/17 06:30 107 23 51/20 99 Mechanical Ventilator 50 5/6/17 06:15 109 23 50/34 99 Mechanical Ventilator 50 5/6/17 06:00 109 23 50/34 99 Mechanical Ventilator 50 5/6/17 06:00 112 50/34 5/6/17 06:00 50/34 5/6/17 05:47 112 26 50 5/6/17 05:45 111 23 53/31 99 Mechanical Ventilator 50 5/6/17 05:30 115 22 70/45 98 Mechanical Ventilator 50 5/6/17 05:15 110 22 84/50 98 Mechanical Ventilator 50 5/6/17 05:00 84/50 5/6/17 05:00 110 22 84/50 98 Mechanical Ventilator 50 5/6/17 04:45 109 22 73/37 98 Mechanical Ventilator 50 5/6/17 04:30 109 22 72/36 98 Mechanical Ventilator 50 5/6/17 04:15 109 22 77/49 98 Mechanical Ventilator 50 5/6/17 04:00 109 22 77/42 98 Mechanical Ventilator 50 5/6/17 04:00 109 5/6/17 04:00 50 5/6/17 04:00 97.4 5/6/17 04:00 [id number] 5/6/17 03:45 109 22 77/42 98 Mechanical Ventilator 50 5/6/17 03:30 109 22 77/42 99 Mechanical Ventilator 50 5/6/17 03:15 111 22 64/41 99 Mechanical Ventilator 50 5/6/17 03:09 114 26 50 5/6/17 03:01 114 69/44 5/6/17 03:01 69/44 5/6/17 03:00 110 22 66/41 99 Mechanical Ventilator 50 5/6/17 02:45 107 22 69/44 98 Mechanical Ventilator 50 5/6/17 02:30 107 22 69/44 98 Mechanical Ventilator 50 5/6/17 02:15 107 22 69/40 98 Mechanical Ventilator 50 5/6/17 02:00 107 22 65/47 98 Mechanical Ventilator 50 5/6/17 02:00 62/47 5/6/17 01:45 107 22 62/47 97 Mechanical Ventilator 50 5/6/17 01:30 108 22 71/39 97 Mechanical Ventilator 50 5/6/17 01:15 108 22 67/42 97 Mechanical Ventilator 50 5/6/17 01:07 108 26 50 5/6/17 01:00 108 22 68/36 97 Mechanical Ventilator 50 5/6/17 01:00 68/36 5/6/17 00:45 107 22 63/45 97 Mechanical Ventilator 50 5/6/17 00:30 107 22 65/30 97 Mechanical Ventilator 50 5/6/17 00:15 107 22 68/30 97 Mechanical Ventilator 50 5/6/17 00:00 108 5/6/17 00:00 97.6 108 24 68/30 97 Mechanical Ventilator 50 5/6/17 00:00 68/36 5/6/17 00:00 50 5/5/17 23:47 107 56/39 5/5/17 23:45 108 24 62/42 97 Mechanical Ventilator 50 5/5/17 23:31 107 56/39 5/5/17 23:30 108 24 59/44 97 Mechanical Ventilator 50 5/5/17 23:15 108 24 56/39 97 Mechanical Ventilator 50 5/5/17 23:11 108 24 50 5/5/17 23:00 109 24 67/35 97 Mechanical Ventilator 50 5/5/17 23:00 67/35 5/5/17 22:45 108 24 62/42 97 Mechanical Ventilator 50 5/5/17 22:31 56/39 5/5/17 22:30 109 24 60/41 97 Mechanical Ventilator 50 5/5/17 22:15 109 23 65/48 97 Mechanical Ventilator 50 5/5/17 22:00 109 23 69/39 97 Mechanical Ventilator 50 5/5/17 21:45 112 23 71/42 97 Mechanical Ventilator 50 5/5/17 21:30 109 23 47/20 97 Mechanical Ventilator 50 5/5/17 21:15 109 23 66/48 97 Mechanical Ventilator 50 5/5/17 21:01 109 25 50 5/5/17 21:00 109 23 113/83 97 Mechanical Ventilator 50 5/5/17 20:45 108 23 66/44 97 Mechanical Ventilator 50 5/5/17 20:30 107 23 56/45 97 Mechanical Ventilator 50 5/5/17 20:15 107 23 83/44 97 Mechanical Ventilator 50 5/5/17 20:05 55 83/44 5/5/17 20:00 107 5/5/17 20:00 97.5 112 23 58/39 97 Mechanical Ventilator 50 5/5/17 20:00 50 5/5/17 19:45 112 23 58/39 97 Mechanical Ventilator 50 5/5/17 19:30 115 23 71/28 97 Mechanical Ventilator 50 5/5/17 19:15 108 23 64/35 97 Mechanical Ventilator 50 5/5/17 19:06 105 26 50 5/5/17 19:01 66/45 5/5/17 19:00 83/44 5/5/17 19:00 106 23 59/33 97 Mechanical Ventilator 50 5/5/17 18:00 106 23 60/31 97 Mechanical Ventilator 50 5/5/17 18:00 106 57/22 Intake and Output 5/5/17 5/6/17 19:00 07:00 Intake Total 2425.50 ml 2545.00 ml Output Total 425 ml 95 ml Balance 2000.50 ml 2450.00 ml Free Water 50 ml 50 ml IV Total 2315.50 ml 2495.00 ml Other 60 ml Output Urine Total 25 ml 95 ml Gastric Drainage Total 400 ml # Bowel Movements 1 Laboratory Tests 07/28/16 06:00: Urine Color Yellow, Urine Appearance Slightly cloudy, Urine pH 5, Urine Specific Canvas 1.020, Urine Protein 3+H, Urine Glucose (UA) Negative, Urine Ketones 1+H, Urine Occult Blood 5+H, Urine Nitrite Negative, Urine Bilirubin 1+H , Urine Ictotest Negative, Urine Urobilinogen Normal, Urine Leukocyte Esterase 3 +H, Urine RBC 5-10H, Urine WBC 20-30H, Urine Squamous Epithelial Cells Few, Urine Bacteria Few, Urine Yeast ModerateH Height (Feet): 5 Height (Inches): 6.00 Weight (Pounds): 194 General Appearance: no apparent distress EENT: TMs normal Neck: supple Cardiovascular: regular rhythm Respiratory/Chest: lungs clear Abdomen: non tender Extremities: non-tender Edema: no edema noted Arm (L), no edema noted Arm (R), no edema noted Leg (L), no edema noted Leg (R), no edema noted Pedal (L), no edema noted Pedal (R), no edema noted Generalized Edema: mild edema Neurologic: abnormal gait Skin: warm/dry Lymphatic: normal anterior cervical (L), normal anterior cervical (R), normal axillary (L), normal axillary (R), normal inguinal (L), normal inguinal (R), normal other, normal posterior cervical (L), normal posterior cervical (R), normal submandibular (L), normal submandibular (R), normal supraclavicular (L), normal supraclavicular (R) TSERING DURANT July 28, 2016 17:31
[2016-07-28] MEDS ORDERED: PCA Morphine 1mg/ml 30 ML IV PRN (18:35)
[2016-07-29] MEDS: Metoclopramide 10mg/2ml Inj IVP SCH
--- NOTE | 2016-07-29 06:08 | Emergency Room Report ---
Physical Exam Vital Signs Date Time Temp Pulse Resp B/P Pulse Ox O2 Delivery O2 Flow Rate FiO2 07/13/16 10:04 140 45 107/66 91 Ambu-Bag 07/13/16 10:21 100 07/13/16 14:00 95.8 07/23/16 10:32 4.0 Medical Decision Making Diagnostic Impression: Primary Impression: Severe sepsis ER Course I was called to the ICU to pronounce this patient. Patient was made comfort care. Patient has a trach and is on the ventilator. Patient at 2:26 AM. I evaluated the patient and noted the patient no longer has a pulse and rhythm on the monitor shows asystole. Patient has Last Vital Signs Date Time Temp Pulse Resp B/P Pulse Ox O2 Delivery O2 Flow Rate FiO2 07/29/16 01:00 66 16 50 07/28/16 21:00 54/27 07/28/16 18:30 96 Mechanical Ventilator 07/28/16 16:00 97.8 07/26/16 16:00 4.0 Status: worsened Disposition: Condition: Referrals: MARIO ARIAS (PCP) MILADYS ARNETT M.D. July 29, 2016 06:08
--- NOTE | 2016-07-31 07:49 | Discharge Summary 2 SIG ---
DATE OF ADMISSION: 07/13/2016 DATE OF EXPIRATION: 07/29/2016. REASON FOR ADMISSION: 56-year-old female brought from the subacute facility where she resided with a complaint of hypoxemia. The patient with chronic ventilator-dependent respiratory failure and tracheostomy status. Upon presentation, she was tachycardic, tachypneic, and hypotensive. Laboratory workup revealed white blood count of 20.2. Lactic acid was 4.0. The patient was admitted with a severe sepsis. Chest x-ray revealed evidence of pneumonia. Potassium- 6.1. Troponin was negative. Laboratory work revealed evidence of anemia. Septic workup was initiated in the emergency room. The patient was started on fluid resuscitation, pancultured and started on broad-spectrum antibiotics. Kayexalate was given for high potassium. The patient was admitted to ICU for further management. ADMITTING DIAGNOSES: 1. Severe sepsis. 2. Ilptm-mp-njklogg respiratory failure ventilator-dependent with tracheostomy status. 4. Pneumonia. 5. Anemia. 6. Hyperkalemia 7. Protein-calorie malnutrition. Hospital Stay: The patient was initially Full Code. Admitted to ICU. The patient had an evidence of metabolic acidosis on admission. Ventilator support was provided. Tracheostomy care was provided. Pulmonary toilet was administered. Baseline ABG was done upon admission and ventilator settings were titrated as needed, based on daily ABG. The patient was started on empiric antibiotic. ID consult was requested. The patient was on the IV hydration. Antibiotic regimen further optimized, based on culture. Sputum culture revealed Providencia and Acinetobacter. Blood culture revealed MRSA. Stool for C. difficile was negative. Urine culture with Martina likely colonized, as per ID. The patient was required to have packed red blood cells transfusion. The patient was transfused a total of 4 units of packed red blood cells. Stool for OB was positive. GI consult was requested. The patient had undergone EGD and found to have erosive gastritis. The patient has G-tube, however, was intolerant of tube feeding and required another EGD with a converting G-tube to J-tube. The patient with evidence of coagulopathy as well and elevated D-dimer. Hematology consult was requested. Venous duplex bilateral lower extremities was negative. According to scada operator, coagulopathy was likely multifactorial. 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 After blood transfusion, hemoglobin and hematocrit remained stable. GI prophylaxis was provided. Wound care nurse seen and evaluated the patient due to the presence on admission sacral , coccyx stage IV decubitus ulcer and left trochanteric stage III decubitus ulcer. Wound care was provided as per wound care nurse recommendation. Abdominal ultrasound revealed no acute findings, but showed hepatomegaly. CT of the abdomen and pelvis revealed moderate left hydronephrosis, anasarca, fecal impaction, and basilar consolidation. Last chest x-ray revealed persistent or recurrent bilateral congestive changes and left retrocardiac opacification persistent or recurrent. The patient's condition overall was worsening. The patient became hypotensive and required vasopressors for hemodynamic support. The patient was on Levophed and phenylephrine, started on 07/26/2016 till 07/28/2016. Leukocytosis up to 19.4 and INR up to 2.2. The patient's condition was discussed with her daughter, including gravity of prognosis and seriousness of the condition. Daughter changed the code status to DNR and requested comfort measure. The patient became DNR on 07/28/2016 at 1805. Pressors were stopped. The patient was started on the morphine drip and comfort measure. The patient on 07/29/2016 at 2:26 a.m. Cause of :cardiopulmonary arrest. DISCHARGE DIAGNOSES: Include, 1. Septic shock. 2. Sepsis with bacteremia with methicillin resistant Staphylococcus aureus. 3. Pneumonia with Providencia and Acinetobacter. 4. Metabolic acidosis. 5. Baqxj-ag-mosfnqt ventilator-dependent respiratory failure/tracheostomy status. 6. Hypokalemia, 7. Anemia secondary to gastrointestinal bleeding. 8. Status post blood transfusion. 9. Chronic encephalopathy. 10. Coagulopathy, possibly disseminated intravascular coagulation. 11. Gastrointestinal bleeding. 12. Dysphagia, gastrostomy tube. 13. Status post endoscopy on 07/16/2016. 14. Acute erosive gastritis. 15. Gastrostomy tube feeding intolerance/gastroparesis. 16. Status post esophagogastroduodenoscopy with converting gastrostomy tube to jejunostomy tube. 17. Severe protein-calorie malnutrition. 18. Sacral-coccyx stage IV decubitus ulcer, present on admission. 19. Left trochanteric stage III decubitus ulcer, present on admission. Bartolome Lynch M.D. I have been assigned to dictate discharge summary on this account and I was not involved in the patient's management. Karla Martinez N.P. ([place]te[place]) DR: MILVIA JOB#: [id number] CC: BUCKY
--- NOTE | 2016-07-31 16:23 | Cardiology Report ---
APPROVED REPORT EKG Measurement Heart [id number] Sinus tachycardia Nonspecific ST and T wave abnormality Abnormal ECG
--- NOTE | 2016-08-11 17:31 | Operative Note - Dictated ---
DATE OF OPERATION: 07/23/2016 GASTROLOGY PROCEDURE PROCEDURE: Upper gastroendoscopy with conversion of gastrostomy tube to jejunostomy tube. SURGEON: Samantha Nichole M.D. ANESTHESIA: Please see the separate anesthesiologist notes for details. PRE-ENDOSCOPIC DIAGNOSIS: Gastrostomy tube feeding problems. POST-ENDOSCOPIC DIAGNOSIS: Status post gastrostomy tube to jejunostomy conversion. PROCEDURE: The procedure, its risks, indications, alternatives, and possible complications were explained and informed consent obtained. The patient was then sedated in supine position. A diagnostic upper endoscope was introduced through the oropharynx and advanced to the stomach. The gastrostomy tube was identified and removed and replaced with jejunostomy catheter. The tip was taken to the duodenum and sutured with Endoclip into the small bowel. The endoscope was removed and the patient was sent to recovery in good condition. COMPLICATIONS: None. RECOMMENDATIONS: 1. Begin jejunostomy tube feeding. 2. Gastrostomy tube. Samantha Nichole M.D. DR: CHRIS JOB#: [id number] CC:
== END 2016-07-29 02:26 | disposition expired | DRG 710 ==
LOC: EDBD 10:08 → EMR 10:52 → EDBEDREQ 11:00 → ICU 11:16 → EDBEDREQ 11:51 → 2W 07-17 18:45 → ICU 07-26 19:13
PROC: 5A1955Z Respiratory Ventilation, Greater than 96 Consecutive Hours (ICD-10-PCS; principal; 2016-07-13)
PROC: 02H633Z Insertion of Infusion Device into Right Atrium, Percutaneous Approach (ICD-10-PCS; 2016-07-13)
PROC: B244ZZZ Ultrasonography of Right Heart (ICD-10-PCS; 2016-07-13)
PROC: 0DB68ZX Excision of Stomach, Via Natural or Artificial Opening Endoscopic, Diagnostic (ICD-10-PCS; 2016-07-16)
PROC: 0DHA4UZ Insertion of Feeding Device into Jejunum, Percutaneous Endoscopic Approach (ICD-10-PCS; 2016-07-23)
DX: A41.02 Sepsis due to Methicillin resistant Staphylococcus aureus (principal); J96.21 Acute and chronic respiratory failure with hypoxia; R65.21 Severe sepsis with septic shock; E43 Unspecified severe protein-calorie malnutrition; G93.49 Other encephalopathy; J15.6 Pneumonia due to other Gram-negative bacteria; L89.154 Pressure ulcer of sacral region, stage 4; N17.9 Acute kidney failure, unspecified; Z99.11 Dependence on respirator [ventilator] status; Z43.0 Encounter for attention to tracheostomy; L89.223 Pressure ulcer of left hip, stage 3; R13.10 Dysphagia, unspecified; E87.2 Acidosis; Z68.31 Body mass index [BMI] 31.0-31.9, adult; I25.10 Atherosclerotic heart disease of native coronary artery without angina pectoris; B37.49 Other urogenital candidiasis; E78.5 Hyperlipidemia, unspecified; E87.6 Hypokalemia; K21.9 Gastro-esophageal reflux disease without esophagitis; I25.2 Old myocardial infarction; Z88.2 Allergy status to sulfonamides; D50.0 Iron deficiency anemia secondary to blood loss (chronic); F03.90 Unspecified dementia, unspecified severity, without behavioral disturbance, psychotic disturbance, mood disturbance, and anxiety; F41.9 Anxiety disorder, unspecified; Z66 Do not resuscitate; M19.90 Unspecified osteoarthritis, unspecified site; Z74.01 Bed confinement status; K29.00 Acute gastritis without bleeding; D68.4 Acquired coagulation factor deficiency; G47.33 Obstructive sleep apnea (adult) (pediatric); I51.7 Cardiomegaly; E03.9 Hypothyroidism, unspecified; K56.41 Fecal impaction; N13.30 Unspecified hydronephrosis; K31.84 Gastroparesis; Z43.1 Encounter for attention to gastrostomy
CPT/HCPCS: 36415; 36569; 36600; 71010; 74000; 74177; 76700; 76937; 80048; 80053; 80202; 81003; 82247; 82270; 82378; 82550; 82553; 82607; 82728; 82746; 82803; 82962; 83010; 83540; 83550; 83605; 83690; 83880; 84484; 85007; 85025; 85044; 85060; 85379; 85384; 85610; 85730; 86703; 86850; 86900; 86901; 86920; 86927; 87040; 87070; 87081; 87086; 87181; 87205; 87324; 93005; 93306; 94002; 94003; 94150; 94640; 94664; J2370; J2765; J8499